=== PATIENT | female | born 1965 | race African-American/Black ===

== ENCOUNTER 2016-04-17 04:22 | Emergency (ER) | payer MEDICARE, OTHER ==
[2016-04-17] MEDS ORDERED: ALBUTEROL SO4 2.5/IPRATROPIUM 0.5 INH SOL 3 ML VIAL.NEB. NEB ONE ×3 (04:59→05:24)
[2016-04-17] MEDS ORDERED: KETOROLAC TROMETHAMINE 30 MG/1 ML VIAL IVPUSH ONE (04:59)
[2016-04-17] MEDS ORDERED: methylPREDNISolone NA SUCC 125 MG/2 ML VIAL IVPB ONE (05:01)
[2016-04-17] MEDS ORDERED: METOCLOPRAMIDE HCL INJECTION 10 MG/2 ML VIAL IVPB ONE (05:03)
[2016-04-17] MEDS ORDERED: SODIUM CHLORIDE 0.9% 1000 ML INFUS.BAG IV ONE (05:03)
--- NOTE | 2016-04-17 05:12 | PDOC ---
History of Present Illness - General Chief Complaint: Headache Stated Complaint: ASTHMA, HEADACHE History Source: Patient Exam Limitations: No Limitations - History of Present Illness Initial Comments: 04/17/16 05:04 Patient is a 50 year old female with h/o bipolar disorder, asthma no intubation , sinus surgery c/o asthma symptoms since yesterday after going to the [facility]. States she was treated at the [facility] and given prednsione of which she took 20 mg last night but still continues to have wheezing. States she has also had a headache since yesterday as well, describes a frontal, throbbing, 8/ 10. She has been taking advil which she took 6 hours ago but has not gotten any relief. Denies fever, chills, nausea, vomiting. PMD: Dr. Hinkle PMHX: as above PSoocHx: neg cig, neg etoh, neg drug FamHx: noncontributory GENERAL/CONSTITUTIONAL: [No fever or chills. No weakness. No weight change.] HEAD, EYES, EARS, NOSE AND THROAT: [No change in vision. No ear pain or discharge. No sore throat.] CARDIOVASCULAR: [No chest pain or shortness of breath.] RESPIRATORY: (+) cough, (+) wheezing, (-) hemoptysis.] GASTROINTESTINAL: [No nausea, vomiting, diarrhea or constipation. No rectal bleeding.] GENITOURINARY: [No dysuria, frequency, or change in urination.] MUSCULOSKELETAL: [No joint or muscle swelling or pain. No neck or back pain.] SKIN AND BREASTS: [No rash or easy bruising.] NEUROLOGIC: [No headache, vertigo, loss of consciousness, or loss of sensation.] PSYCHIATRIC: (+) depression or anxiety.] ENDOCRINE: [No increased thirst. No abnormal weight change.] HEMATOLOGIC/LYMPHATIC: [No anemia, easy bleeding, or history of blood clots.] ALLERGIC/IMMUNOLOGIC: [No hives or skin allergy. No latex allergy.] GENERAL: [The patient is awake, alert, and fully oriented, in no acute distress. ] HEAD: [Normal with no signs of trauma.] EYES: [Pupils equal, round and reactive to light, extraocular movements intact, sclera anicteric, conjunctiva clear.] ENT: [Ears normal, nares patent, oropharynx clear without exudates. Moist mucous membranes.] NECK: [Normal range of motion, supple without lymphadenopathy, JVD, or masses.] LUNGS: bilaterally wheezing, and no crackles.] HEART: [Regular rate and rhythm, normal S1 and S2 without murmur, rub.] ABDOMEN: [Soft, nontender, normoactive bowel sounds. No guarding, no rebound. No masses.] EXTREMITIES: [Normal range of motion, no edema. No clubbing or cyanosis. No cords, erythema, or tenderness.] NEUROLOGICAL: [Cranial nerves II through XII grossly intact. Normal speech, normal gait.] PSYCH: [Normal mood, normal affect.] SKIN: [Warm, Dry, normal turgor, no rashes or lesions noted.] Past History - Past Medical History Allergies/Adverse Reactions: Allergies Allergy/AdvReac Type Severity Reaction Status Date / Time surjit Allergy Mild Verified 04/17/16 04:47 Sulfa (Sulfonamide Allergy Rash Verified 04/17/16 04:47 Antibiotics) [Sulfa(Sulfonamide Antibiotics)] Home Medications: Ambulatory Orders Haloperidol Decanoate [Haldol Decanoate 50] 50 mg IM MONTHLY 12/14/11 Albuterol Sulfate Inhaler - [Ventolin HFA Inhaler -] 1 - 2 inh PO Q4H PRN #1 inhaler 02/01/16 Budesonide/Formeterol Fumarate [SYMBICORT 160/4.5mcg -] 1 inh PO BID #1 inhaler 02/01/16 Prednisone [Deltasone -] 10 mg PO ONCE 02/01/16 Prednisone [Deltasone -] 40 mg PO DAILY #10 tablet 02/01/16 Anemia: No Asthma: Yes Cancer: No Cardiac Disorders: No CVA: No COPD: No CHF: No Dementia: No Diabetes: No GI Disorders: No Disorders: No HTN: No Hypercholesterolemia: Yes Liver Disease: No Psychiatric Problems: Yes (bipolar) Seizures: No Thyroid Disease: No - Surgical History Abdominal Surgery: No Appendectomy: No Cardiac Surgery: No Cholecystectomy: No Lung Surgery: No Neurologic Surgery: No Orthopedic Surgery: No - Immunization History Immunization Up to Date: Yes - Psycho/Social/Smoking Cessation Hx Anxiety: Yes (BIPOLAR) Suicidal Ideation: No Smoking Status: No Smoking History: Never smoked Have you smoked in the past 12 months: No Number of Cigarettes Smoked Daily: 0 Cigars Per Day: 0 Information on smoking cessation initiated: No Hx Alcohol Use: No Drug/Substance Use Hx: No Substance Use Type: None Hx Substance Use Treatment: No *Physical Exam - Vital Signs Last Vital Signs Temp Pulse Resp BP Pulse Ox 97.5 F L 62 19 116/83 99 04/17/16 04:45 04/17/16 04:45 04/17/16 04:45 04/17/16 04:45 04/17/16 04:45 Medical Decision Making - Medical Decision Making 04/17/16 05:13 Patient is a 50 year old female with h/o bipolar disorder, asthma, sinus surgery c/o asthma symptoms since yesterday after going to the [employer]. will treat the asthma duo nebs, solumedrol KEARNEY treat with benadryl, reglan, toradol. reassess 04/17/16 06:38 Informed that patient pulled out her IV and left without notification *DC/Admit/Observation/Transfer Diagnosis at time of Disposition: Asthma with acute exacerbation Qualifiers: Asthma severity: mild intermittent Qualified Code(s): J45.21 - Mild intermittent asthma with (acute) exacerbation Headache Qualifiers: Headache type: tension-type Headache chronicity pattern: unspecified pattern Intractability: not intractable Qualified Code(s): G44.209 - Tension-type headache, unspecified, not intractable - Discharge Dispostion Disposition: ELOPED Condition at time of disposition: Stable - Referrals Referrals: Brittney Hinkle [Primary Care Provider] -
[2016-04-17 05:21] VITALS: BP 116/83; PULSE 62; TEMP 97.5; BMI 44.2
[2016-04-17] MEDS ORDERED: METOCLOPRAMIDE HCL INJECTION 10 MG/2 ML VIAL ONE (05:24)
[2016-04-17] MEDS ORDERED: methylPREDNISolone NA SUCC 125 MG/2 ML VIAL ONE (05:24)
[2016-04-17] MEDS ORDERED: KETOROLAC TROMETHAMINE 30 MG/1 ML VIAL ONE (05:24)
== END 2016-04-17 06:09 | disposition left against medical advice (07) ==
LOC: JER 04:22
PROC: 3E0F7GC Introduction of Other Therapeutic Substance into Respiratory Tract, Via Natural or Artificial Opening (ICD-10-PCS; principal; 2016-04-17)
PROC: 3E033GC Introduction of Other Therapeutic Substance into Peripheral Vein, Percutaneous Approach (ICD-10-PCS; 2016-04-17)
PROC: 3E0333Z Introduction of Anti-inflammatory into Peripheral Vein, Percutaneous Approach (ICD-10-PCS; 2016-04-17)
PROC: 3E0337Z Introduction of Electrolytic and Water Balance Substance into Peripheral Vein, Percutaneous Approach (ICD-10-PCS; 2016-04-17)
DX: J45.21 Mild intermittent asthma with (acute) exacerbation (principal); G44.209 Tension-type headache, unspecified, not intractable; E78.00 Pure hypercholesterolemia, unspecified; F31.9 Bipolar disorder, unspecified; F41.9 Anxiety disorder, unspecified
CPT/HCPCS: 94640; 96361; 96374; 96375; 99282-25

== ENCOUNTER 2016-04-27 01:19 | Emergency (ER) | payer MEDICARE ==
[2016-04-27] MEDS ORDERED: predniSONE 20 MG TABLET (UD) PO ONE (01:54)
[2016-04-27] MEDS ORDERED: IPRATROPIUM BR 0.02% 0.5 MG/2.5 ML VIAL.NEB. NEB ONE (01:54)
[2016-04-27] MEDS ORDERED: ALBUTEROL SO4 0.083% IH SOL 2.5 MG/3 ML VIAL.NEB. NEB ONE (01:54)
[2016-04-27] MEDS ORDERED: ACETAMINOPHEN 325 MG TABLET (FP) PO ONE (01:56)
--- NOTE | 2016-04-27 02:03 | PDOC ---
History of Present Illness - General Chief Complaint: Respiratory Stated Complaint: DIFFICULTY BREATHING,HEADACHE History Source: Patient, Old Records Exam Limitations: No Limitations - History of Present Illness Initial Comments: 04/27/16 01:57 50 year old female with past medical history of asthma, well known to me, presents with mild asthma exacerbation. Since yesterday, has had a mild cough, but no SOB or chest pain. Has had used her inhalers with some relief. She had taken 20 mg prednisone today. Came into the ED for further evaluation. Past History - Past Medical History Allergies/Adverse Reactions: Allergies Allergy/AdvReac Type Severity Reaction Status Date / Time surjit Allergy Mild Verified 04/27/16 02:01 Sulfa (Sulfonamide Allergy Rash Verified 04/27/16 02:01 Antibiotics) [Sulfa(Sulfonamide Antibiotics)] Home Medications: Ambulatory Orders Haloperidol Decanoate [Haldol Decanoate 50] 50 mg IM MONTHLY 12/14/11 Budesonide/Formeterol Fumarate [SYMBICORT 160/4.5mcg -] 1 inh PO BID #1 inhaler 02/01/16 Prednisone [Deltasone -] 10 mg PO ONCE 02/01/16 Prednisone [Deltasone -] 40 mg PO DAILY #10 tablet 02/01/16 Acetaminophen [Tylenol] 650 mg PO Q4H PRN #20 tablet 04/27/16 Albuterol Sulfate Inhaler - [Ventolin HFA Inhaler -] 1 - 2 inh PO Q4H PRN #1 inhaler 04/27/16 Prednisone [Deltasone -] 60 mg PO DAILY #12 tablet 04/27/16 Anemia: No Asthma: Yes Cancer: No Cardiac Disorders: No CVA: No COPD: No CHF: No Dementia: No Diabetes: No GI Disorders: No Disorders: No HTN: No Hypercholesterolemia: Yes Liver Disease: No Psychiatric Problems: Yes (bipolar) Seizures: No Thyroid Disease: No - Surgical History Abdominal Surgery: No Appendectomy: No Cardiac Surgery: No Cholecystectomy: No Lung Surgery: No Neurologic Surgery: No Orthopedic Surgery: No - Immunization History Immunization Up to Date: Yes - Psycho/Social/Smoking Cessation Hx Anxiety: Yes (BIPOLAR) Suicidal Ideation: No Smoking Status: No Smoking History: Never smoked Have you smoked in the past 12 months: No Number of Cigarettes Smoked Daily: 0 Cigars Per Day: 0 Hx Alcohol Use: No Drug/Substance Use Hx: No Substance Use Type: None Hx Substance Use Treatment: No Review of Systems - Review of Systems Able to Perform ROS?: Yes Comments:: 04/27/16 02:01 GENERAL/CONSTITUTIONAL: No fever, weakness. HEAD, EYES, EARS, NOSE AND THROAT: No change in vision. No ear pain or discharge. No sore throat. CARDIOVASCULAR: No chest pain or shortness of breath. RESPIRATORY: + wheezing GASTROINTESTINAL: No abdominal pain, nausea, vomiting, diarrhea, or decreased PO intolerance. GENITOURINARY: No dysuria, frequency, or change in urination. MUSCULOSKELETAL: No joint or muscle swelling or pain. No neck or back pain. SKIN: No rash NEUROLOGIC: No headache, vertigo, loss of consciousness, or change in strength/ sensation. ENDOCRINE: No increased thirst. No abnormal weight change. HEMATOLOGIC/LYMPHATIC: No anemia, easy bleeding, or history of blood clots. ALLERGIC/IMMUNOLOGIC: No hives or skin allergy. *Physical Exam - Physical Exam Comments: 04/27/16 02:02 GENERAL: Awake, alert, and fully oriented, in no acute distress. HEAD: No signs of trauma EYES: PERRLA, EOMI, sclera anicteric, conjunctiva clear ENT: Auricles normal inspection, hearing grossly normal, nares patent, oropharynx clear without exudates. NECK: Normal ROM, supple, no lymphadenopathy, JVD, or masses LUNGS:mild expiratory wheezing bilaterally HEART: Regular rate and rhythm, normal S1 and S2, no murmurs, rubs or gallops ABDOMEN: Soft, nontender, normoactive bowel sounds. No guarding, no rebound. No masses EXTREMITIES: Normal range of motion, no edema. No clubbing or cyanosis. No cords, erythema, or tenderness NEUROLOGICAL: Cranial nerves II through XII grossly intact. Normal speech, normal gait SKIN: Warm, Dry, normal turgor, no rashes or lesions noted. Medical Decision Making - Medical Decision Making 04/27/16 02:03 The patient is speaking in full sentences and ambulatory. She is here with mild wheezing and in mild asthma exacerbation. Will treat with nebs, steroids. Patient is also asking for tylenol for her mild tension like headache. Will give her a treatment and have her follow up with PMD. I discussed the physical exam findings, ancillary test results and final diagnoses with the patient. I answered all of the patient's questions. The patient was satisfied with the care received and felt comfortable with the discharge plan and treatment plan. The patient will call their primary care physician within 24 hours to arrange follow-up and will return to the Emergency Department with any new, persistant or worsening symptoms. *DC/Admit/Observation/Transfer Diagnosis at time of Disposition: Acute asthma exacerbation Qualifiers: Asthma severity: unspecified severity Qualified Code(s): J45.901 - Unspecified asthma with (acute) exacerbation - Discharge Dispostion Disposition: HOME Condition at time of disposition: Improved Admit: No - Prescriptions Prescriptions: Prednisone [Deltasone -] 60 mg PO DAILY #12 tablet Acetaminophen [Tylenol] 650 mg PO Q4H PRN #20 tablet PRN Reason: Headache Albuterol Sulfate Inhaler - [Ventolin HFA Inhaler -] 1 - 2 inh PO Q4H PRN #1 inhaler PRN Reason: Wheezing - Referrals Referrals: Brittney Hinkle [Primary Care Provider] - Reinier Zhang MD [Staff Physician] - - Patient Instructions Printed Discharge Instructions: DI for Asthma -- Adult Additional Instructions: Take 2 puffs of albuterol every 4 hours as needed for wheezing. Take the prednisone for the next 4 days. Follow up with your doctor.
[2016-04-27 02:13] VITALS: BP 140/66; PULSE 83; TEMP 97.7; BMI 45.7
[2016-04-27] MEDS ORDERED: ALBUTEROL SO4 2.5/IPRATROPIUM 0.5 INH SOL 3 ML VIAL.NEB. NEB ONE (02:20)
[2016-04-27] MEDS ORDERED: predniSONE 20 MG TABLET (UD) ONE (02:20)
[2016-04-27] MEDS ORDERED: ACETAMINOPHEN 325 MG TABLET (FP) ONE (02:20)
== END 2016-04-27 02:58 | disposition home or self-care (01) ==
LOC: JER 01:19
DX: J45.901 Unspecified asthma with (acute) exacerbation (principal); E78.00 Pure hypercholesterolemia, unspecified; F31.9 Bipolar disorder, unspecified
CPT/HCPCS: 99281-25

== ENCOUNTER 2016-05-04 22:30 | Emergency (ER) | payer MEDICARE ==
[2016-05-04 22:38] VITALS: BP 107/62; PULSE 84; TEMP 97.9; BMI 45.7
[2016-05-04] MEDS ORDERED: RANITIDINE HCL 150 MG TABLET (FP) PO ONE (22:57)
[2016-05-04] MEDS ORDERED: SUCRALFATE 1 GM TABLET (FP) PO ONE (22:57)
[2016-05-04] MEDS ORDERED: LOPERAMIDE HCL 2 MG CAPSULE PO ONE (22:57)
[2016-05-04] MEDS ORDERED: ACETAMINOPHEN 325 MG TABLET (FP) PO ONE (22:57)
[2016-05-04] MEDS ORDERED: MAG HYDROX/AL HYDROX/SIMETH 30 ML UNIT-DOSE CUP PO ONE (22:57)
--- NOTE | 2016-05-04 23:45 | PDOC ---
History of Present Illness - General History Source: Patient Exam Limitations: No Limitations <Aly Yeh - Last Filed: 05/04/16 23:45> - General History Source: Patient, Old Records Exam Limitations: No Limitations - History of Present Illness Initial Comments: 05/04/16 23:55 The patient is a 50 year old female, with a significant past medical history of asthma and bipolar disorder, who presents to the emergency department with epigastric discomfort and diarrhea after eating a questionable hot dog [place] the movie theatre. The patient reports 3 episodes of nonbloody diarrhea. The patient denies fever, chills, nausea or vomiting. Allergies: Sulfa, Stephen. Past Surgical History: None reported. Social History: Non smoker. Denies alcohol or drug use. PCP: Dr. Hinkle <Janet Carter - Last Filed: 05/04/16 23:55> - General Chief Complaint: Pain Stated Complaint: POSSIBLE FOOD POISON Time Seen by Provider: 05/04/16 22:56 Past History - Past Medical History Anemia: No Asthma: Yes Cancer: No Cardiac Disorders: No CVA: No COPD: No CHF: No Dementia: No Diabetes: No GI Disorders: No Disorders: No HTN: No Hypercholesterolemia: Yes Liver Disease: No Psychiatric Problems: Yes (bipolar) Seizures: No Thyroid Disease: No - Surgical History Abdominal Surgery: No Appendectomy: No Cardiac Surgery: No Cholecystectomy: No Lung Surgery: No Neurologic Surgery: No Orthopedic Surgery: No - Immunization History Immunization Up to Date: Yes - Psycho/Social/Smoking Cessation Hx Anxiety: Yes (BIPOLAR) Suicidal Ideation: No Smoking Status: No Smoking History: Never smoked Have you smoked in the past 12 months: No Number of Cigarettes Smoked Daily: 0 Cigars Per Day: 0 Information on smoking cessation initiated: No Hx Alcohol Use: No Drug/Substance Use Hx: No Substance Use Type: None Hx Substance Use Treatment: No <Aly Yeh - Last Filed: 05/04/16 23:45> <Janet Carter - Last Filed: 05/04/16 23:55> - Past Medical History Allergies/Adverse Reactions: Allergies Allergy/AdvReac Type Severity Reaction Status Date / Time stephen Allergy Mild Verified 05/04/16 22:35 Sulfa (Sulfonamide Allergy Rash Verified 05/04/16 22:35 Antibiotics) [Sulfa(Sulfonamide Antibiotics)] Home Medications: Ambulatory Orders Haloperidol Decanoate [Haldol Decanoate 50] 50 mg IM MONTHLY 12/14/11 Budesonide/Formeterol Fumarate [SYMBICORT 160/4.5mcg -] 1 inh PO BID #1 inhaler 02/01/16 Prednisone [Deltasone -] 10 mg PO ONCE 02/01/16 Prednisone [Deltasone -] 40 mg PO DAILY #10 tablet 02/01/16 Acetaminophen [Tylenol] 650 mg PO Q4H PRN #20 tablet 04/27/16 Albuterol Sulfate Inhaler - [Ventolin HFA Inhaler -] 1 - 2 inh PO Q4H PRN #1 inhaler 04/27/16 Prednisone [Deltasone -] 60 mg PO DAILY #12 tablet 04/27/16 Review of Systems - Review of Systems Able to Perform ROS?: Yes Comments:: 05/04/16 23:55 GENERAL/CONSTITUTIONAL: No fever or chills. No weakness. HEAD, EYES, EARS, NOSE AND THROAT: No change in vision. No ear pain or discharge. No sore throat. CARDIOVASCULAR: No chest pain or shortness of breath. RESPIRATORY: No cough, wheezing, or hemoptysis. GASTROINTESTINAL: +Epigastric discomfort, diarrhea. No nausea, vomiting or constipation. GENITOURINARY: No dysuria, frequency, or change in urination. MUSCULOSKELETAL: No joint or muscle swelling or pain. No neck or back pain. SKIN: No rash. NEUROLOGIC: No headache, vertigo, loss of consciousness, or change in strength/ sensation. ENDOCRINE: No increased thirst. No abnormal weight change. HEMATOLOGIC/LYMPHATIC: No anemia, easy bleeding, or history of blood clots. ALLERGIC/IMMUNOLOGIC: No hives or skin allergy. <Janet Carter - Last Filed: 05/04/16 23:55> *Physical Exam - Vital Signs Last Vital Signs Temp Pulse Resp BP Pulse Ox 97.9 F 84 14 107/62 96 05/04/16 22:35 05/04/16 22:35 05/04/16 22:35 05/04/16 22:35 05/04/16 22:35 <Aly Yeh - Last Filed: 05/04/16 23:45> - Vital Signs Last Vital Signs Temp Pulse Resp BP Pulse Ox 97.9 F 84 14 107/62 96 05/04/16 22:35 05/04/16 22:35 05/04/16 22:35 05/04/16 22:35 05/04/16 22:35 - Physical Exam Comments: 05/04/16 23:49 GENERAL: Obese. Awake, alert, and fully oriented, in no acute distress. HEAD: No signs of trauma. EYES: PERRLA, EOMI, sclera anicteric, conjunctiva clear. ENT: Auricles normal inspection, hearing grossly normal, nares patent, oropharynx clear without exudates. Moist mucosa. NECK: Normal ROM, supple, no lymphadenopathy, JVD, or masses. LUNGS: Breath sounds equal, clear to auscultation bilaterally. No wheezes, and no crackles. HEART: Regular rate and rhythm, normal S1 and S2, no murmurs, rubs or gallops. ABDOMEN: Epigastric tenderness on palpation. Soft, normoactive bowel sounds. No guarding, no rebound. No masses. EXTREMITIES: Normal range of motion, no edema. No clubbing or cyanosis. No cords , erythema, or tenderness. NEUROLOGICAL: Cranial nerves II through XII intact. Normal speech, normal gait. SKIN: Warm, dry, normal turgor, no rashes or lesions noted. <Janet Carter - Last Filed: 05/04/16 23:55> Medical Decision Making - Medical Decision Making 05/04/16 23:36 A portion of this note was documented by scribe services under my direction. I have reviewed the details of the note, within reason, and agree with the documentation with the following case summary and management plan written by me. Patient treated in the ED. Nursing notes are reviewed and incorporated into the medical decision-making. Vital signs reviewed. Peripheral IV access obtained by the nurse, laboratory studies are drawn and sent, reviewed and interpreted by myself. Vital Signs Temp Pulse Resp BP Pulse Ox 97.9 F 84 14 107/62 96 05/04/16 22:35 05/04/16 22:35 05/04/16 22:35 05/04/16 22:35 05/04/16 22:35 50-year-old female patient with history of bipolar disorder, asthma presents to the ED for 3 episodes of loose stooling after eating a hotdog at movie theaters. Patient reports some mild epigastric discomfort but denies fevers or chills. Denies nausea or vomiting. Patient came to the ER for further evaluation. The patient overall was nontoxic and well-appearing. I suspect that she may have had a mild food poisoning secondary to the hotdog. I had ordered some by mouth medications. However, when I had him to reassess the patient, the patient was nowhere to be found. There was no IV placed. The nurse has been looking for the patient without avail. The patient had likely eloped after medical evaluation. <Aly Yeh - Last Filed: 05/04/16 23:45> *DC/Admit/Observation/Transfer <Aly Yeh - Last Filed: 05/04/16 23:45> - Attestations Scribe Attestion: 05/04/16 23:48 Documentation prepared by Janet Carter, acting as medical records clerk for Aly Yeh MD. <Janet Carter - Last Filed: 05/04/16 23:55> Diagnosis at time of Disposition: Diarrhea Qualifiers: Diarrhea type: unspecified type Qualified Code(s): R19.7 - Diarrhea, unspecified - Discharge Dispostion Disposition: ELOPED Condition at time of disposition: Stable - Referrals Referrals: Brittney Hinkle [Primary Care Provider] -
== END 2016-05-04 23:45 | disposition left against medical advice (07) ==
LOC: JER 22:30
DX: R19.7 Diarrhea, unspecified (principal); F31.9 Bipolar disorder, unspecified; J45.909 Unspecified asthma, uncomplicated
CPT/HCPCS: 99281-25

== ENCOUNTER 2016-07-26 06:13 | Emergency (ER) | payer MEDICARE ==
[2016-07-26 06:33] VITALS: BP 137/86; PULSE 80; TEMP 98.5; BMI 43.9
[2016-07-26] MEDS ORDERED: ALBUTEROL SO4 0.083% IH SOL 2.5 MG/3 ML VIAL.NEB. NEB ONE (06:38)
[2016-07-26] MEDS ORDERED: IBUPROFEN 400 MG TABLET (FP) PO ONE (06:38)
[2016-07-26] MEDS ORDERED: IBUPROFEN 600 MG TABLET (FP) PO ONE (06:40)
== END 2016-07-26 06:59 | disposition left against medical advice (07) ==
LOC: JER 06:13
DX: Z53.21 Procedure and treatment not carried out due to patient leaving prior to being seen by health care provider (principal)
CPT/HCPCS: 99281-25

== ENCOUNTER 2016-07-28 21:48 | Emergency (ER) | payer MEDICARE ==
[2016-07-28 21:58] VITALS: BP 123/68; PULSE 89; TEMP 98.7; BMI 43.9
== END 2016-07-28 23:42 | disposition left against medical advice (07) ==
LOC: SUPCPDRO 21:48 → JER 21:48
DX: Z53.21 Procedure and treatment not carried out due to patient leaving prior to being seen by health care provider (principal)
CPT/HCPCS: 99281-25

== ENCOUNTER 2016-10-17 01:13 | Emergency (ER) | payer MEDICARE ==
[2016-10-17 01:35] VITALS: BP 127/83; PULSE 63; TEMP 97.6; BMI 45.7
--- NOTE | 2016-10-17 02:03 | PDOC ---
History of Present Illness - General Chief Complaint: Shortness of Breath Stated Complaint: DIFFICULTY BREATHING Time Seen by Provider: 10/17/16 02:00 - History of Present Illness Initial Comments: 10/17/16 02:13 50 F with h/o asthma (no prior intubations), and bipolar disorder presents to ER with 4 days of cough, congestion, and SOB. Pt reports that she was seen in another hospital 3 days ago and started on prednisone and amoxicillin for an upper respiratory infection. She denies any fevers. States that she has been feeling overall better but tonight began to have what she believes is an asthma attack, stating that she started to cough and get short of breath. Pt also endorses mild headache which she states she gets every time she has an asthma exacerbation. Denies that this is any different from her usual headache. No neck pain. No N/V. Prior to MD evaluation, pt had been given saline nebs while waiting. At time of interview, pt states that her symptoms have now resolved. She denies any SOB, denies chest pain. Pt states that she would like to leave at this time and plans to see her PMD tomorrow. Past History - Past Medical History Allergies/Adverse Reactions: Allergies Allergy/AdvReac Type Severity Reaction Status Date / Time surjit Allergy Mild Verified 10/17/16 01:30 Sulfa (Sulfonamide Allergy Rash Verified 10/17/16 01:30 Antibiotics) [Sulfa(Sulfonamide Antibiotics)] Home Medications: Ambulatory Orders Haloperidol Decanoate [Haldol Decanoate 50] 50 mg IM MONTHLY 12/14/11 Budesonide/Formeterol Fumarate [SYMBICORT 160/4.5mcg -] 1 inh PO BID #1 inhaler 02/01/16 Prednisone [Deltasone -] 10 mg PO ONCE 02/01/16 Prednisone [Deltasone -] 40 mg PO DAILY #10 tablet 02/01/16 Acetaminophen [Tylenol] 650 mg PO Q4H PRN #20 tablet 04/27/16 Albuterol Sulfate Inhaler - [Ventolin HFA Inhaler -] 1 - 2 inh PO Q4H PRN #1 inhaler 04/27/16 Prednisone [Deltasone -] 60 mg PO DAILY #12 tablet 04/27/16 Albuterol Sulfate Inhaler - [Ventolin HFA Inhaler -] 2 puff IH Q4H PRN #1 inhaler 10/17/16 Anemia: No Asthma: Yes Cancer: No Cardiac Disorders: No CVA: No COPD: No CHF: No Dementia: No Diabetes: No GI Disorders: No Disorders: No HTN: No Hypercholesterolemia: Yes Liver Disease: No Psychiatric Problems: Yes (bipolar) Seizures: No Thyroid Disease: No - Surgical History Abdominal Surgery: No Appendectomy: No Cardiac Surgery: No Cholecystectomy: No Lung Surgery: No Neurologic Surgery: No Orthopedic Surgery: No - Immunization History Immunization Up to Date: Yes - Psycho/Social/Smoking Cessation Hx Anxiety: No Suicidal Ideation: No Smoking Status: No Smoking History: Never smoked Have you smoked in the past 12 months: No Number of Cigarettes Smoked Daily: 0 Cigars Per Day: 0 Information on smoking cessation initiated: No Hx Alcohol Use: No Drug/Substance Use Hx: No Substance Use Type: None Hx Substance Use Treatment: No Respiratory Specific PMHX - Complaint Specific PMHX Bronchitis: Yes Review of Systems - Review of Systems Comments:: 10/17/16 02:17 "GENERAL/CONSTITUTIONAL: No fever or chills. No weakness. HEAD, EYES, EARS, NOSE AND THROAT: No change in vision. No ear pain or discharge. No sore throat. CARDIOVASCULAR: No chest pain or shortness of breath. RESPIRATORY: (+) cough, wheeze, shortness of breath. No hemoptysis. GASTROINTESTINAL: No nausea, vomiting, diarrhea or constipation. GENITOURINARY: dysuria, frequency, or change in urination. MUSCULOSKELETAL: No joint or muscle swelling or pain. SKIN: No rash NEUROLOGIC: (+) headache. No loss of consciousness, or change in strength/ sensation. ENDOCRINE: No increased thirst. No abnormal weight change. HEMATOLOGIC/LYMPHATIC: No anemia, easy bleeding, or history of blood clots. ALLERGIC/IMMUNOLOGIC: No hives or skin allergy. " *Physical Exam - Vital Signs Last Vital Signs Temp Pulse Resp BP Pulse Ox 97.6 F 63 18 127/83 97 10/17/16 01:30 10/17/16 01:30 10/17/16 01:30 10/17/16 01:30 10/17/16 01:30 - Physical Exam Comments: 10/17/16 02:22 "GENERAL: Awake, alert, and fully oriented, in no acute distress HEAD: No signs of trauma EYES: PERRLA, EOMI, sclera anicteric, conjunctiva clear ENT: Auricles normal inspection, hearing grossly normal, nares patent, oropharynx clear without exudates. Moist mucosa NECK: supple, no lymphadenopathy, JVD, or masses LUNGS: Breath sounds equal, clear to auscultation bilaterally. No wheezes, and no crackles HEART: Regular rate and rhythm, normal S1 and S2, no murmurs, rubs or gallops ABDOMEN: Soft, nontender, normoactive bowel sounds. No guarding, no rebound. No masses EXTREMITIES: Normal range of motion, no edema. No clubbing or cyanosis. No cords, erythema, or tenderness NEUROLOGICAL: Cranial nerves II through XII grossly intact. Normal speech, normal gait SKIN: Warm, Dry, normal turgor, no rashes or lesions noted. " Medical Decision Making - Medical Decision Making 10/17/16 02:23 50 F with asthma presents to ER with cough and wheezing, now resolved. Possible asthma exacerbation given pt's history. However, pt's symptoms resolved with only saline nebs. Lungs completely clear with no wheezing. Symptoms may be 2/2 pt's URI like illness. - Supportive care - DC home with PMD f/u *DC/Admit/Observation/Transfer Diagnosis at time of Disposition: Viral syndrome - Discharge Dispostion Disposition: HOME Condition at time of disposition: Stable Admit: No - Patient Instructions Printed Discharge Instructions: DI for Asthma -- Adult Additional Instructions: Please follow up with your primary care doctor as scheduled tomorrow. Use your albuterol pump every 4 hours as needed for wheezing or cough. Continue taking your prednisone and antibiotics as prescribed. If you experience severe shortness of breath, chest pain, high fevers, or any other concerning symptoms, return to the ER immediately. - Attestations Physician Attestion: 10/17/16 02:27 I, Dr. Bboby Rodgers MD, attest that this document has been prepared under my direction and personally reviewed by me in its entirety. I further attest, that it accurately reflects all work, treatment, procedures and medical decision -making performed by me.
[2016-10-17] MEDS ORDERED: ALBUTEROL SO4 6.7 GM HFA INHALER IH ONE (02:47)
== END 2016-10-17 02:56 | disposition home or self-care (01) ==
LOC: JER 01:13
PROC: 3E0F7GC Introduction of Other Therapeutic Substance into Respiratory Tract, Via Natural or Artificial Opening (ICD-10-PCS; principal; 2016-10-17)
DX: B34.9 Viral infection, unspecified (principal); J45.909 Unspecified asthma, uncomplicated; F31.9 Bipolar disorder, unspecified; E78.00 Pure hypercholesterolemia, unspecified; Z88.2 Allergy status to sulfonamides
CPT/HCPCS: 94640; 99283-25

== ENCOUNTER 2016-12-19 23:43 | Emergency (ER) | payer MEDICARE ==
[2016-12-20] MEDS ORDERED: ALBUTEROL SO4 2.5/IPRATROPIUM 0.5 INH SOL 3 ML VIAL.NEB. NEB ONE (00:42)
[2016-12-20 00:51] VITALS: BP 129/96; PULSE 81; TEMP 98.9; BMI 45.7
[2016-12-20] MEDS ORDERED: ACETAMINOPHEN 325 MG TABLET (FP) ONE (00:57)
[2016-12-20] MEDS ORDERED: ACETAMINOPHEN 325 MG TABLET (FP) PO ONE (00:58)
--- NOTE | 2016-12-20 01:16 | PDOC ---
History of Present Illness - General Chief Complaint: Shortness of Breath Stated Complaint: ASTHMA Time Seen by Provider: 12/20/16 00:44 History Source: Patient Exam Limitations: No Limitations - History of Present Illness Initial Comments: 12/20/16 01:11 51yo Female patient w/ PmHx: Asthma, Bipolar presents to ED c/o shortness of breath. Patient states she was seen at [facility] yesterday for Asthma flare up and given Prednisone 60mg, and nebulizer x 3 doses and discharge home. Patient f/u with Dr. Hinkle and was prescribed [id number]. She denies fever, CP, Abd pain, n/v/d, back pain or any other complaints at this time. LNMP : 11/02/2016. PCP- Dr. Hinkle. Timing/Duration: reports: just prior to arrival. denies: other, constant, changing over time, getting worse, gone now, intermittent, week, yesterday, this afternoon, this evening, this morning Severity: reports: mild. denies: moderate, severe Episode Description: See HPI Possible Cause: Yes: occasional episodes. No: no prior episodes, other, allergen exposure, chronic episodes, frequent episodes, illness exposure, irritant gases exposure, smoke exposure, unknown cause Modifying Factors: improves with: albuterol inhaler, albuterol nebulizer, antibiotics. worse with: activity, coughing, lying down, oxygen, rest, other Associated Symptoms: reports: cough, shortness of breath, wheezing. denies: denies symptoms, chest pain/soreness, dizziness, earache, facial pain, fever/ chills, headache, lightheadedness, muscle aches, nasal congestion, nasal drainage, sinus infection, sore throat, other Past History - Travel Traveled outside of the country in the last 30 days: No Close contact w/someone who was outside of country & ill: No - Past Medical History Allergies/Adverse Reactions: Allergies Allergy/AdvReac Type Severity Reaction Status Date / Time surjit Allergy Mild Verified 10/17/16 01:30 Sulfa (Sulfonamide Allergy Rash Verified 10/17/16 01:30 Antibiotics) [Sulfa(Sulfonamide Antibiotics)] Home Medications: Ambulatory Orders Haloperidol Decanoate [Haldol Decanoate 50] 50 mg IM MONTHLY 12/14/11 Budesonide/Formeterol Fumarate [SYMBICORT 160/4.5mcg -] 1 inh PO BID #1 inhaler 02/01/16 Prednisone [Deltasone -] 10 mg PO ONCE 02/01/16 Prednisone [Deltasone -] 40 mg PO DAILY #10 tablet 02/01/16 Acetaminophen [Tylenol] 650 mg PO Q4H PRN #20 tablet 04/27/16 Albuterol Sulfate Inhaler - [Ventolin HFA Inhaler -] 1 - 2 inh PO Q4H PRN #1 inhaler 04/27/16 Prednisone [Deltasone -] 60 mg PO DAILY #12 tablet 04/27/16 Albuterol Sulfate Inhaler - [Ventolin HFA Inhaler -] 2 puff IH Q4H PRN #1 inhaler 10/17/16 Anemia: No Asthma: Yes Cancer: No Cardiac Disorders: No CVA: No COPD: No CHF: No Dementia: No Diabetes: No GI Disorders: No Disorders: No HTN: No Hypercholesterolemia: Yes Liver Disease: No Psychiatric Problems: Yes (bipolar) Seizures: No Thyroid Disease: No - Surgical History Abdominal Surgery: No Appendectomy: No Cardiac Surgery: No Cholecystectomy: No Lung Surgery: No Neurologic Surgery: No Orthopedic Surgery: No - Immunization History Immunization Up to Date: Yes - Suicide/Smoking/Psychosocial Hx Smoking Status: No Smoking History: Never smoked Have you smoked in the past 12 months: No Number of Cigarettes Smoked Daily: 0 Cigars Per Day: 0 Information on smoking cessation initiated: No Hx Alcohol Use: No Drug/Substance Use Hx: No Substance Use Type: None Hx Substance Use Treatment: No Respiratory Specific PMHX - Complaint Specific PMHX Angina: No Bronchitis: Yes Pneumonia: No Pulmonary Embolus: No TB (Tuberculosis): No Review of Systems - Review of Systems Able to Perform ROS?: Yes Is the patient limited Mohawk proficient: No Constitutional: No: Chills, Fever Respiratory: Yes: Cough, Shortness of Breath, Wheezing. No: Stridor, Productive cough Cardiac (ROS): No: Chest Pain, Chest Tightness All Other Systems: Reviewed and Negative *Physical Exam - Vital Signs Last Vital Signs Temp Pulse Resp BP Pulse Ox 98.9 F 81 18 129/96 98 12/20/16 00:49 12/20/16 00:49 12/20/16 00:49 12/20/16 00:49 12/20/16 00:49 - Physical Exam General Appearance: Yes: Nourished, Appropriately Dressed. No: Apparent Distress, Mild Distress, Moderate Distress, Severe Distress Neck: positive: Trachea midline, Normal Thyroid, Supple. negative: Rigid, Stridor, Lymphadenopathy (R), Lymphadenopathy (L) Respiratory/Chest: positive: Wheezing (Mild). negative: Chest Tender, Lungs Clear, Normal Breath Sounds, Respiratory Distress, Accessory Muscle Use, Labored Respiration, Rapid RR, Rhonchi, Stridor Cardiovascular: positive: Regular Rhythm, Regular Rate Musculoskeletal: positive: Normal Inspection. negative: CVA Tenderness, Decreased Range of Motion, Vertebral Tenderness Extremity: positive: Normal Capillary Refill, Normal Inspection, Normal Range of Motion. 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 *DC/Admit/Observation/Transfer Diagnosis at time of Disposition: Asthma - Discharge Dispostion Disposition: LEFT BEFORE [facility] Condition at time of disposition: Stable Admit: No
--- NOTE | 2016-12-20 01:24 | PDOC ---
*Physical Exam - Vital Signs Last Vital Signs Temp Pulse Resp BP Pulse Ox 98.9 F 81 18 129/96 98 12/20/16 00:49 12/20/16 00:49 12/20/16 00:49 12/20/16 00:49 12/20/16 00:49 ED Treatment Course - Medications Given in the ED: ED Medications Discontinued Medications Generic Name Dose Route Start Last Admin Trade Name Freq PRN Reason Stop Dose Admin Acetaminophen 650 mg 12/20/16 00:58 12/20/16 00:59 Tylenol - PO 12/20/16 00:59 650 mg ONCE ONE Administration Medical Decision Making - Medical Decision Making 12/20/16 01:24 agree with care from DONOVAN Scott *DC/Admit/Observation/Transfer Diagnosis at time of Disposition: Asthma - Discharge Dispostion Disposition: LEFT BEFORE [facility] Condition at time of disposition: Stable - Referrals Referrals: Brittney Hinkle [Primary Care Provider] - - Patient Instructions - Post Discharge Activity
== END 2016-12-20 01:20 | disposition left against medical advice (07) ==
LOC: JER 23:43
DX: Z53.21 Procedure and treatment not carried out due to patient leaving prior to being seen by health care provider (principal); J45.909 Unspecified asthma, uncomplicated; F31.9 Bipolar disorder, unspecified
CPT/HCPCS: 99281-25

== ENCOUNTER 2016-12-24 22:27 | Emergency (ER) | payer MEDICARE ==
[2016-12-24 22:34] VITALS: BP 145/72; PULSE 77; TEMP 98; BMI 45.7
--- NOTE | 2016-12-24 23:33 | PDOC ---
History of Present Illness - General History Source: Patient Exam Limitations: No Limitations - History of Present Illness Initial Comments: 12/24/16 23:41 The patient is a 51 year old female with history of asthma, on 10mg of Prednisone daily, who presents to the ED complaining of 1 day of progressively worsening shortness of breath consistent with previous asthma exacerbations. She states she has been sick with cold-like symptoms for which she completed an antibiotic course. No fever or chills. No nausea, vomiting, or diarrhea. No chest pain, palpitations, or peripheral edema. <Smitha Wolfe - Last Filed: 12/24/16 23:49> <Babs Wlesh - Last Filed: 12/25/16 04:04> - General Chief Complaint: Asthma Stated Complaint: ASTHMA Time Seen by Provider: 12/24/16 23:33 Past History <Smitha Wolfe - Last Filed: 12/24/16 23:49> - Past Medical History Anemia: No Asthma: Yes Cancer: No Cardiac Disorders: No CVA: No COPD: No CHF: No Dementia: No Diabetes: No GI Disorders: No Disorders: No HTN: No Hypercholesterolemia: Yes Liver Disease: No Psychiatric Problems: Yes (bipolar) Seizures: No Thyroid Disease: No - Surgical History Abdominal Surgery: No Appendectomy: No Cardiac Surgery: No Cholecystectomy: No Lung Surgery: No Neurologic Surgery: No Orthopedic Surgery: No - Immunization History Immunization Up to Date: Yes - Suicide/Smoking/Psychosocial Hx Smoking Status: No Smoking History: Never smoked Have you smoked in the past 12 months: No Number of Cigarettes Smoked Daily: 0 Cigars Per Day: 0 Information on smoking cessation initiated: No Hx Alcohol Use: No Drug/Substance Use Hx: No Substance Use Type: None Hx Substance Use Treatment: No <Babs Welsh - Last Filed: 12/25/16 04:04> - Past Medical History Allergies/Adverse Reactions: Allergies Allergy/AdvReac Type Severity Reaction Status Date / Time surjit Allergy Mild Verified 12/24/16 22:33 Sulfa (Sulfonamide Allergy Rash Verified 12/24/16 22:33 Antibiotics) [Sulfa(Sulfonamide Antibiotics)] Home Medications: Ambulatory Orders Haloperidol Decanoate [Haldol Decanoate 50] 50 mg IM MONTHLY 12/14/11 Budesonide/Formeterol Fumarate [SYMBICORT 160/4.5mcg -] 1 inh PO BID #1 inhaler 02/01/16 Prednisone [Deltasone -] 10 mg PO ONCE 02/01/16 Albuterol Sulfate Inhaler - [Ventolin HFA Inhaler -] 2 puff IH Q4H PRN #1 inhaler 10/17/16 Review of Systems - Review of Systems Able to Perform ROS?: Yes Comments:: 12/24/16 23:45 GENERAL/CONSTITUTIONAL: No fever or chills. No weakness. HEAD, EYES, EARS, NOSE AND THROAT: No change in vision. No ear pain or discharge. No sore throat. CARDIOVASCULAR: No chest pain or peripheral edema. RESPIRATORY: +Dyspnea. No cough or hemoptysis. GASTROINTESTINAL: No nausea, vomiting, diarrhea or constipation. GENITOURINARY: No dysuria, frequency, or change in urination. MUSCULOSKELETAL: No joint or muscle swelling or pain. No neck or back pain. SKIN: No rash NEUROLOGIC: No headache, vertigo, loss of consciousness, or change in strength/ sensation. ENDOCRINE: No increased thirst. No abnormal weight change. HEMATOLOGIC/LYMPHATIC: No anemia, easy bleeding, or history of blood clots. ALLERGIC/IMMUNOLOGIC: No hives or skin allergy. <Smitha Wolfe - Last Filed: 12/24/16 23:49> *Physical Exam - Vital Signs Last Vital Signs Temp Pulse Resp BP Pulse Ox 98.0 F 77 18 145/72 98 12/24/16 22:28 12/24/16 22:28 12/24/16 22:28 12/24/16 22:28 12/24/16 22:28 - Physical Exam Comments: 12/24/16 23:49 GENERAL: Awake, alert, and fully oriented, in no acute distress HEAD: No signs of trauma EYES: PERRLA, EOMI, sclera anicteric, conjunctiva clear ENT: Auricles normal inspection, hearing grossly normal, nares patent, oropharynx clear without exudates. Moist mucosa NECK: Normal ROM, supple, no lymphadenopathy, JVD, or masses LUNGS: Referred upper airway wheezing, good breath sounds. Able to speak in full sentences. HEART: Regular rate and rhythm, normal S1 and S2, no murmurs, rubs or gallops ABDOMEN: Soft, nontender, normoactive bowel sounds. No guarding, no rebound. No masses EXTREMITIES: Normal range of motion, no edema. No clubbing or cyanosis. No cords, erythema, or tenderness NEUROLOGICAL: Cranial nerves II through XII grossly intact. Normal speech, normal gait SKIN: Warm, Dry, normal turgor, no rashes or lesions noted. <Smitha Wolfe - Last Filed: 12/24/16 23:49> - Vital Signs Last Vital Signs Temp Pulse Resp BP Pulse Ox 98.0 F 77 18 145/72 98 12/24/16 22:28 12/24/16 22:28 12/24/16 22:28 12/24/16 22:28 12/24/16 22:28 <Babs Welsh - Last Filed: 12/25/16 04:04> Medical Decision Making - Medical Decision Making 12/25/16 04:01 Pt comes with SOB; states her asthma is acting up given the change in weather. Pt has no other complaints. Afebrile. VSS. Pt takes prednisone daily 10mg, as prescribed by her PMD Sun. Pt will not require CXR, as her lung fu are clear. Pt will be treated with duoneb and tylenol for headache. Discharged once she was improved. <Babs Welsh - Last Filed: 12/25/16 04:04> *DC/Admit/Observation/Transfer - Attestations Scribe Attestion: 12/24/16 23:49 Documentation prepared by Smitha Wolfe, acting as emergency medical technician for Babs Welsh MD. <Smitha Wolfe - Last Filed: 12/24/16 23:49> <Babs Welsh - Last Filed: 12/25/16 04:04> Diagnosis at time of Disposition: eloped - Discharge Dispostion Disposition: ELOPED
[2016-12-24] MEDS ORDERED: ALBUTEROL SO4 2.5/IPRATROPIUM 0.5 INH SOL 3 ML VIAL.NEB. NEB ONE ×2 (23:43→23:51)
[2016-12-24] MEDS ORDERED: ACETAMINOPHEN 500 MG TABLET (FP) PO ONE (23:43)
[2016-12-24] MEDS ORDERED: ACETAMINOPHEN 325 MG TABLET (FP) ONE (23:50)
== END 2016-12-24 23:58 | disposition left against medical advice (07) ==
LOC: JER 22:27
DX: J45.909 Unspecified asthma, uncomplicated (principal); E78.00 Pure hypercholesterolemia, unspecified; F31.9 Bipolar disorder, unspecified
CPT/HCPCS: 99281-25

== ENCOUNTER 2016-12-27 21:53 | Emergency (ER) | payer MEDICARE ==
[2016-12-27 22:06] VITALS: BP 130/50; PULSE 96; TEMP 98.1; BMI 43.9
== END 2016-12-28 01:50 | disposition left against medical advice (07) ==
LOC: JER 21:53
DX: Z53.21 Procedure and treatment not carried out due to patient leaving prior to being seen by health care provider (principal)
CPT/HCPCS: 99281-25

== ENCOUNTER 2017-02-21 01:05 | Emergency (ER) | payer MEDICARE ==
[2017-02-21 01:29] VITALS: BP 156/106; PULSE 61; TEMP 98.4; BMI 44.8
[2017-02-21] MEDS ORDERED: ALBUTEROL SO4 2.5/IPRATROPIUM 0.5 INH SOL 3 ML VIAL.NEB. NEB ONE ×2 (01:45→01:48)
--- NOTE | 2017-02-21 01:47 | PDOC ---
History of Present Illness - General Chief Complaint: Pain Stated Complaint: DIFF BREATHING/BACK PAIN Time Seen by Provider: 02/21/17 01:29 - History of Present Illness Initial Comments: 02/21/17 01:47 CHIEF COMPLAINT: SOB, back pain HISTORY OF PRESENT ILLNESS: 51 yo F with hx of asthma and bipolar disease, well known to this ED with multiple elopements presents to ED with difficulty breathing and back pain. Patient reports that she was seen at [facility] today "for my bipolar disease and when I was at the hospital I fell onto my bottom." Patient reports getting x-rays of her lower back at [facility] that "were negative" and that "they gave me a shot, but I'm not sure what it was , and they also gave me some pain medicine but I took it a few hours ago and it didn't help me." Patient also reports that she took "20 of prednisone because of my breathing and I felt much better." Patient is ambulatory and walking around this ER's hallways on arrival. Denies loss of sensation to lower extremities, loss of bowel or bladder function. PAST MEDICAL HISTORY: as per HPI FAMILY HISTORY: Denies SOCIAL HISTORY: Denies tobacco, alcohol, illicit drug use. SURGICAL HISTORY: Denies ALLERGIES: sulfas REVIEW OF SYSTEMS General/Constitutional: Denies fever or chills. Denies weakness, weight change. HEENT: Denies change in vision. Denies ear pain or discharge. Denies sore throat. Cardiovascular: Denies chest pain or shortness of breath. Respiratory: Denies cough, wheezing, or hemoptysis. Gastrointestinal: Denies nausea, vomiting, diarrhea or constipation. Denies rectal bleeding. Genitourinary: Denies dysuria, frequency, or change in urination. Musculoskeletal: Lower back pain. Skin and breasts: Denies rash or easy bruising. Neurologic: Denies headache, vertigo, loss of consciousness, or loss of sensation. Psychiatric: Hx of bipolar disorder. PHYSICAL EXAM General Appearance: Well-appearing, appropriately dressed. No apparent distress. HEENT: EOMI, PERRLA. No photophobia, scleral icterus. Respiratory/Chest: Mild, diffuse wheezing b/l. No shortness of breath, chest tenderness, respiratory distress, accessory muscle use. No crackles, rales, rhonchi, stridor, dullness Cardiovascular: RRR. S1, S2. Gastrointestinal/Abdominal: Normal bowel sounds. Abdomen soft, non-distended. No tenderness or rebound tenderness. No organomegaly, pulsatile mass, guarding , hernia, hepatomegaly, splenomegaly. Musculoskeletal/Extremities: Patient ambulatory, sensory discrimination intact to b/l lower extremities. Normal inspection. FROM of all extremities, normal capillary refill. Pelvis Stable. No CVA tenderness. No tenderness to extremities, pedal edema, swelling, erythema or deformity. Integumentary: Appropriate color, dry, warm. 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 Fully oriented, alert. Appropriate mood/affect. Motor strength 5/5. No appreciable EOM palsy, facial droop or sensory deficit. 02/21/17 01:59 Past History - Past Medical History Allergies/Adverse Reactions: Allergies Allergy/AdvReac Type Severity Reaction Status Date / Time surjit Allergy Mild Verified 02/21/17 01:26 Sulfa (Sulfonamide Allergy Rash Verified 02/21/17 01:26 Antibiotics) [Sulfa(Sulfonamide Antibiotics)] Home Medications: Ambulatory Orders Haloperidol Decanoate [Haldol Decanoate 50] 50 mg IM MONTHLY 12/14/11 Budesonide/Formeterol Fumarate [SYMBICORT 160/4.5mcg -] 1 inh PO BID #1 inhaler 02/01/16 Prednisone [Deltasone -] 10 mg PO ONCE 02/01/16 Albuterol Sulfate Inhaler - [Ventolin HFA Inhaler -] 2 puff IH Q4H PRN #1 inhaler 10/17/16 Diclofenac Sodium 75 mg PO BID #10 tablet. 02/21/17 Anemia: No Asthma: Yes Cancer: No Cardiac Disorders: No CVA: No COPD: No CHF: No Dementia: No Diabetes: No GI Disorders: No Disorders: No HTN: No Hypercholesterolemia: Yes Liver Disease: No Psychiatric Problems: Yes (Bipolar) Seizures: No Thyroid Disease: No - Surgical History Abdominal Surgery: No Appendectomy: No Cardiac Surgery: No Cholecystectomy: No Lung Surgery: No Neurologic Surgery: No Orthopedic Surgery: No - Immunization History Immunization Up to Date: Yes - Suicide/Smoking/Psychosocial Hx Smoking Status: No Smoking History: Never smoked Have you smoked in the past 12 months: No Number of Cigarettes Smoked Daily: 0 Cigars Per Day: 0 Information on smoking cessation initiated: No Hx Alcohol Use: No Drug/Substance Use Hx: No Substance Use Type: None Hx Substance Use Treatment: No *Physical Exam - Vital Signs Last Vital Signs Temp Pulse Resp BP Pulse Ox 98.4 F 61 20 156/106 95 02/21/17 01:26 02/21/17 01:26 02/21/17 01:26 02/21/17 01:26 02/21/17 01:26 Medical Decision Making - Medical Decision Making 02/21/17 02:04 51 yo F with hx of asthma and bipolar disease, well known to this ED with multiple elopements presents to ED with difficulty breathing and back pain. -duoneb Patient states she will f/u with PCP Arin tomorrow. -diclofenac rx sent to pharm Ortho referral provided for further evaluation of back pain. *DC/Admit/Observation/Transfer Diagnosis at time of Disposition: Asthma exacerbation Qualifiers: Asthma severity: moderate Asthma persistence: persistent Qualified Code(s): J45.41 - Moderate persistent asthma with (acute) exacerbation Back pain Qualifiers: Back pain location: low back pain Chronicity: acute Back pain laterality: midline Sciatica presence: without sciatica Qualified Code(s): M54.5 - Low back pain - Discharge Dispostion Disposition: HOME Condition at time of disposition: Stable Admit: No - Prescriptions Prescriptions: Diclofenac Sodium 75 mg PO BID #10 tablet.dr - Referrals Referrals: Brittney Hinkle [Primary Care Provider] - Jadon Kirkland MD [Staff Physician] - - Patient Instructions Printed Discharge Instructions: DI for Low Back Pain, DI for Asthma -- Adult Additional Instructions: Please take medication as prescribed. Follow up with Dr. Hinkle and orthopedics as discussed. If you develop any loss of sensation to your legs, loss of bowel or bladder function, or are unable to walk, please return to the ER. - Post Discharge Activity
== END 2017-02-21 02:19 | disposition home or self-care (01) ==
LOC: JER 01:05
PROC: 3E0F7GC Introduction of Other Therapeutic Substance into Respiratory Tract, Via Natural or Artificial Opening (ICD-10-PCS; principal; 2017-02-21)
DX: J45.41 Moderate persistent asthma with (acute) exacerbation (principal); M54.5 Low back pain; E78.00 Pure hypercholesterolemia, unspecified; W19.XXXA Unspecified fall, initial encounter; Y93.89 Activity, other specified; Y92.238 Other place in hospital as the place of occurrence of the external cause
CPT/HCPCS: 99282-25

== ENCOUNTER → 2017-02-22 | Emergency (ER) | payer MEDICARE ==
[~2017-02-22] MED LIST: ALBUTEROL SO4 2.5/IPRATROPIUM 0.5 INH SOL 3 ML VIAL.NEB. NEB STA; ASPIRIN 81 MG CHEWABLE TABLETS ONE; predniSONE 20 MG TABLET (UD) ONE; predniSONE 20 MG TABLET (UD) PO ONE
[2017-02-22 23:06] VITALS: BP 133/78; PULSE 78; TEMP 98.6; BMI 44.8
--- NOTE | 2017-02-22 23:16 | PDOC ---
History of Present Illness - General History Source: Patient <Darrion Guajardo - Last Filed: 02/22/17 23:16> - General History Source: Patient Exam Limitations: No Limitations - History of Present Illness Initial Comments: 02/22/17 23:24 The patient is a 51 year old female, with a significant past medical history of asthma and bipolar disorder, who presents to the emergency department with shortness of breath for approximately 2 days. The patient reports she has been on a low dose of Prednisone (20 mg) for the past couple of days. However, yesterday, she developed worsening shortness of breath and associated wheezing, so her PCP advised her to take 40 mg of Prednisone. Today, patient reports she has not taken her medications and feels more short of breath. She reports associated shortness of breath with speaking and dry cough, but denies dyspnea on exertion or orthopnea. She denies any chest pain, diaphoresis, palpitations, or lower extremity edema. She denies any fever, chills, headache, or dizziness. She denies any recent travel or sick contacts. Allergies: Sulfa(Sulfonamide antibiotics) Past Surgical History: None reported Social History: Non smoker. No ETOH or recreational drug use PCP: Dr. Hinkle <Liliana Roca - Last Filed: 02/22/17 23:26> - General Chief Complaint: Asthma Stated Complaint: ASTHMA Time Seen by Provider: 02/22/17 23:14 Past History - Past Medical History Anemia: No Asthma: Yes Cancer: No Cardiac Disorders: No CVA: No COPD: No CHF: No Dementia: No Diabetes: No GI Disorders: No Disorders: No HTN: No Hypercholesterolemia: Yes Liver Disease: No Psychiatric Problems: Yes (Bipolar) Seizures: No Thyroid Disease: No - Surgical History Abdominal Surgery: No Appendectomy: No Cardiac Surgery: No Cholecystectomy: No Lung Surgery: No Neurologic Surgery: No Orthopedic Surgery: No - Immunization History Immunization Up to Date: Yes - Suicide/Smoking/Psychosocial Hx Smoking Status: No Smoking History: Never smoked Have you smoked in the past 12 months: No Number of Cigarettes Smoked Daily: 0 Cigars Per Day: 0 Information on smoking cessation initiated: No Hx Alcohol Use: No Drug/Substance Use Hx: No Substance Use Type: None Hx Substance Use Treatment: No <Darrion Guajardo - Last Filed: 02/22/17 23:16> <Liliana Roca - Last Filed: 02/22/17 23:26> - Past Medical History Allergies/Adverse Reactions: Allergies Allergy/AdvReac Type Severity Reaction Status Date / Time surjit Allergy Mild Verified 02/22/17 22:57 Sulfa (Sulfonamide Allergy Rash Verified 02/22/17 22:57 Antibiotics) [Sulfa(Sulfonamide Antibiotics)] Home Medications: Ambulatory Orders Haloperidol Decanoate [Haldol Decanoate 50] 50 mg IM MONTHLY 12/14/11 Budesonide/Formeterol Fumarate [SYMBICORT 160/4.5mcg -] 1 inh PO BID #1 inhaler 02/01/16 Prednisone [Deltasone -] 10 mg PO ONCE 02/01/16 Albuterol Sulfate Inhaler - [Ventolin HFA Inhaler -] 2 puff IH Q4H PRN #1 inhaler 10/17/16 Diclofenac Sodium 75 mg PO BID #10 tablet. 02/21/17 Review of Systems - Review of Systems Able to Perform ROS?: Yes Comments:: 02/22/17 23:24 CONSTITUTIONAL: Absent: fever, no chills, no fatigue EYES: Absent: visual changes ENT: Absent: ear pain, no sore throat CARDIOVASCULAR: Absent: chest pain, no palpitations RESPIRATORY: Present: cough, SOB, SOB with speaking Absent: dyspnea on exertion, orthopnea GI: Absent: abdominal pain, no nausea, no vomiting, no constipation, no diarrhea GENITOURINARY: Absent: dysuria, no frequency, no hematuria MUSCULOSKELETAL: Absent: back pain, no arthralgia, no myalgia SKIN: Absent: rash NEURO: Absent: headache <Liliana Roca - Last Filed: 02/22/17 23:26> *Physical Exam - Vital Signs Last Vital Signs Temp Pulse Resp BP Pulse Ox 98.6 F 78 21 133/78 99 02/22/17 22:40 02/22/17 22:40 02/22/17 22:40 02/22/17 22:40 02/22/17 22:55 <Darrion Guajardo - Last Filed: 02/22/17 23:16> - Vital Signs Last Vital Signs Temp Pulse Resp BP Pulse Ox 98.6 F 78 21 133/78 99 02/22/17 22:40 02/22/17 22:40 12/14/17 22:40 02/22/17 22:40 02/22/17 22:55 - Physical Exam Comments: 02/22/17 23:24 GENERAL: Well-appearing, well-nourished. No apparent distress. HEENT: Normocephalic, atraumatic. PERRL, EOM intact. CARDIOVASCULAR: Normal S1, S2. Regular rate and rhythm. PULMONARY: Decreased breath sounds bilaterally with scattered wheezing. Conversational dyspnea ABDOMEN: Soft, non-distended, non-tender. EXTREMITIES: Normal ROM in all four extremities. No gross deformities. SKIN: Warm, dry. No rash NEUROLOGICAL: No focal neurological deficits. <Liliana Roca - Last Filed: 02/22/17 23:26> *DC/Admit/Observation/Transfer <Darrion Guajardo - Last Filed: 02/22/17 23:16> - Attestations Scribe Attestion: 02/22/17 23:24 Documentation prepared by Liliana Roca, acting as medical interpreter for Darrion Guajardo DO. <Liliana Roca - Last Filed: 02/22/17 23:26> - Referrals Referrals: Brittney Hinkle [Primary Care Provider] - - Patient Instructions - Post Discharge Activity
== END | disposition left against medical advice (07) ==
LOC: JER 22:32
PROC: 3E0F7GC Introduction of Other Therapeutic Substance into Respiratory Tract, Via Natural or Artificial Opening (ICD-10-PCS; principal; 2017-02-22)
DX: J45.909 Unspecified asthma, uncomplicated (principal)
CPT/HCPCS: 99282-25

== ENCOUNTER 2017-02-23 08:05 | Emergency (ER) | payer MEDICARE ==
[2017-02-23 08:09] VITALS: BP 145/88; PULSE 76; TEMP 98.1; BMI 44.8
--- NOTE | 2017-02-23 08:40 | PDOC ---
History of Present Illness - General Chief Complaint: Asthma Stated Complaint: ASTHMA Time Seen by Provider: 02/23/17 08:19 History Source: Patient Exam Limitations: No Limitations - History of Present Illness Initial Comments: 02/23/17 09:00 Patient is a [51-year-old female with history of asthma and bipolar disorder. Patient comes to emergency department complaining of shortness of breathe and left sided, nonradiating chest pain. Was seen in the ER yesterday for asthma, has been taking low dose Prednisone for a month, 20 mg per day. Was given respiratory treatment yesterday and she felt better. Upon arrival, after questioning, patient reports two weeks of bilateral lower extremity edema. Past Medical History: [asthma, bipolar]. Allergies: [place], Sulfa Medications: [Haldol, albuterol] Family History: Non-contributory Social History: Denies smoking, alcohol use, or IVDU Vital signs on arrival are [notable for pulse of 76.] PCP: Dr. Hinkle Review of Systems GENERAL/CONSTITUTIONAL: [No fever or chills. No weakness. No weight change.] HEAD, EYES, EARS, NOSE AND THROAT: [No change in vision. No ear pain or discharge. No sore throat. ] CARDIOVASCULAR: [Left sided chest pain and SOB] RESPIRATORY: [No cough, wheezing, or hemoptysis.] GASTROINTESTINAL: [No nausea, vomiting, diarrhea or constipation. No rectal bleeding.] GENITOURINARY: [No dysuria, frequency, or change in urination.] MUSCULOSKELETAL: [No joint or muscle swelling or pain. No neck or back pain.] SKIN AND BREASTS: [No rash or easy bruising.] NEUROLOGIC: [No headache, vertigo, loss of consciousness, or loss of sensation.] PSYCHIATRIC: [No depression or anxiety.] ENDOCRINE: [No increased thirst. No abnormal weight change.] HEMATOLOGIC/LYMPHATIC: [No anemia, easy bleeding, or history of blood clots.] ALLERGIC/IMMUNOLOGIC: [No hives or skin allergy. No latex allergy.] Physical Exam: GENERAL: [The patient is awake, alert, and fully oriented, in no acute distress. ] HEAD: [Normal with no signs of trauma.] EYES: [Pupils equal, round and reactive to light, extraocular movements intact, sclera anicteric, conjunctiva clear.] ENT: [Ears normal, nares patent, oropharynx clear without exudates. Moist mucous membranes. No uvula deviation] NECK: [Normal range of motion, supple without lymphadenopathy, JVD, or masses.] LUNGS: [Breath sounds equal, clear to auscultation bilaterally. No wheezes, and no crackles.] HEART: [Regular rate and rhythm, normal S1 and S2 without murmur, rub or gallop. ] ABDOMEN: [Soft, nontender, normoactive bowel sounds. No guarding, no rebound. No masses. No bruising or abrasions] MUSCULOSKELETAL: [Normal range of motion, no edema. No clubbing or cyanosis. No cords, erythema, or tenderness. No CVA Tenderness with fist.] NEUROLOGICAL: [Cranial nerves II through XII grossly intact. Normal speech, normal gait.] SKIN: [Warm, Dry, normal turgor, no rashes or lesions noted.] 02/23/17 09:09 02/23/17 09:10 Past History - Past Medical History Allergies/Adverse Reactions: Allergies Allergy/AdvReac Type Severity Reaction Status Date / Time surjit Allergy Mild Verified 02/23/17 08:09 Sulfa (Sulfonamide Allergy Rash Verified 02/23/17 08:09 Antibiotics) [Sulfa(Sulfonamide Antibiotics)] Home Medications: Ambulatory Orders Haloperidol Decanoate [Haldol Decanoate 50] 50 mg IM MONTHLY 12/14/11 Budesonide/Formeterol Fumarate [SYMBICORT 160/4.5mcg -] 1 inh PO BID #1 inhaler 02/01/16 Prednisone [Deltasone -] 10 mg PO ONCE 02/01/16 Albuterol Sulfate Inhaler - [Ventolin HFA Inhaler -] 2 puff IH Q4H PRN #1 inhaler 10/17/16 Diclofenac Sodium 75 mg PO BID #10 tablet. 02/21/17 Anemia: No Asthma: Yes Cancer: No Cardiac Disorders: No CVA: No COPD: No CHF: No DVT: No Dementia: No Diabetes: No GI Disorders: No Disorders: No HTN: No Hypercholesterolemia: Yes Liver Disease: No Psychiatric Problems: Yes (Bipolar) Seizures: No Thyroid Disease: No - Surgical History Abdominal Surgery: No Appendectomy: No Cardiac Surgery: No Cholecystectomy: No Lung Surgery: No Neurologic Surgery: No Orthopedic Surgery: No - Immunization History Immunization Up to Date: Yes - Suicide/Smoking/Psychosocial Hx Smoking Status: No Smoking History: Never smoked Have you smoked in the past 12 months: No Number of Cigarettes Smoked Daily: 0 Cigars Per Day: 0 Information on smoking cessation initiated: No Hx Alcohol Use: No Drug/Substance Use Hx: No Substance Use Type: None Hx Substance Use Treatment: No Respiratory Specific PMHX - Complaint Specific PMHX Angina: No Bronchitis: Yes Pneumonia: No Pulmonary Embolus: No TB (Tuberculosis): No *Physical Exam - Vital Signs Last Vital Signs Temp Pulse Resp BP Pulse Ox 98.1 F 76 18 145/88 97 02/23/17 08:08 02/23/17 08:08 02/23/17 08:08 02/23/17 08:08 02/23/17 08:08 ED Treatment Course - LABORATORY CBC & Chemistry Diagram: 02/23/17 09:10 02/23/17 09:50 Medical Decision Making - Medical Decision Making 02/23/17 09:11 A/P: Patient here stating that she short of breath history of asthma, left- sided chest pain patient is associating the left side of her chest pain with her asthma. On clinical exam lungs are clear, responds sudden onset of shortness of breath with left-sided chest pain patient sent to main emergency department for higher level of care spoke to Mason Chu nurse practitioner, report given. Patient stable for transfer. *DC/Admit/Observation/Transfer Diagnosis at time of Disposition: Shortness of breath - Discharge Dispostion Disposition: ELOPED Condition at time of disposition: Fair - Referrals Referrals: Brittney Hinkle [Primary Care Provider] - - Patient Instructions - Post Discharge Activity
[2017-02-23] MEDS ORDERED: ASPIRIN 81 MG CHEWABLE TABLETS PO ONE (08:43)
--- NOTE | 2017-02-23 09:01 | PDOC ---
*Physical Exam - Vital Signs Last Vital Signs Temp Pulse Resp BP Pulse Ox 98.1 F 76 18 145/88 97 02/23/17 08:08 02/23/17 08:08 02/23/17 08:08 02/23/17 08:08 02/23/17 08:08 - Physical Exam General Appearance: Yes: Appropriately Dressed. No: Apparent Distress HEENT: positive: LISA, Normal ENT Inspection Neck: positive: Trachea midline, Supple Respiratory/Chest: positive: Lungs Clear, Normal Breath Sounds. negative: Respiratory Distress, Accessory Muscle Use Cardiovascular: positive: Regular Rhythm, Regular Rate, S1, S2, Edema (+2 pitting). negative: Murmur Vascular Pulses: Dorsalis-Pedis (R): 2+, Doralis-Pedis (L): 2+ Gastrointestinal/Abdominal: positive: Normal Bowel Sounds, Soft. negative: Tender Musculoskeletal: positive: Normal Inspection. negative: CVA Tenderness Extremity: positive: Normal Capillary Refill, Normal Inspection, Normal Range of Motion Integumentary: positive: Normal Color, Dry, Warm Neurologic: positive: waste examiner II-XII NML intact, Fully Oriented, Alert, Normal Mood/ Affect, Normal Response, Motor Strength 5/5 <Bright Chu - Last Filed: 02/23/17 13:31> - Vital Signs Last Vital Signs Temp Pulse Resp BP Pulse Ox 98.1 F 76 18 145/88 97 02/23/17 08:08 02/23/17 08:08 02/23/17 08:08 02/23/17 08:08 02/23/17 08:08 <Everardo Bullock - Last Filed: 02/23/17 13:36> Heart Score/ECG Review - History History: Slightly suspicious - Electrocardiogram EKG: Normal - Age Age: 45-65 - Risk Factors Based on the list above the patient has:: No risk factors known - Troponin Troponin: </= normal limit - Score Heart Score - Total: 1 - ECG Intrepretation Rhythm: Regular Rhythm <Bright Chu - Last Filed: 02/23/17 13:31> - ECG Impressions Comment:: 02/23/17 10:27 Twelve-lead EKG was performed and reviewed by me. There is normal sinus rhythm with a normal rate. Rate of 70 Nonspecific T-wave inversion in lead 3 <Everardo Bullock - Last Filed: 02/23/17 13:36> ED Treatment Course - LABORATORY CBC & Chemistry Diagram: 02/23/17 09:10 02/23/17 09:50 - RADIOLOGY Radiology Studies Ordered: Category Date Time Status CHEST PA & LAT [RAD] Stat Radiology 02/23/17 08:48 Ordered - Medications Given in the ED: ED Medications Discontinued Medications Generic Name Dose Route Start Last Admin Trade Name Freq PRN Reason Stop Dose Admin Aspirin 162 mg 02/23/17 08:43 02/23/17 08:48 Asa - PO 02/23/17 08:44 162 mg ONCE ONE Administration <Bright Chu - Last Filed: 02/23/17 13:31> - LABORATORY CBC & Chemistry Diagram: 02/23/17 09:10 02/23/17 09:50 - ADDITIONAL ORDERS Additional order review: Laboratory Results 02/23/17 02/23/17 09:29 09:10 PT with INR 11.10 INR 0.98 Urine HCG, Qual Negative 02/23/17 09:10 RBC 4.79 MCV 80.6 MCHC 31.7 L RDW 16.8 H MPV 8.0 Neutrophils % 81.8 D Lymphocytes % 15.3 D Monocytes % 2.3 L Eosinophils % 0.1 D Basophils % 0.5 - Medications Given in the ED: ED Medications Discontinued Medications Generic Name Dose Route Start Last Admin Trade Name Freq PRN Reason Stop Dose Admin Aspirin 162 mg 02/23/17 08:43 02/23/17 08:48 Asa - PO 02/23/17 08:44 162 mg ONCE ONE Administration <Everardo Bullock - Last Filed: 02/23/17 13:36> Medical Decision Making - Medical Decision Making 02/23/17 09:01 A/P: This is a 51-year-old female with past medical history of bipolar disorder and asthma presents to the emergency department with acute onset shortness of breath and left-sided chest pain starting approximately one hour prior to arrival. She describes the pain as a pressure radiating 7 out of 10 on the left chest at the fourth intercostal space and left sternal border. Lungs clear to auscultation bilaterally. No respiratory distress or sensory muscle use is present. RRR. S1 and S2 are presents no murmur, rub or gallop noted. Abdomen is soft nontender nondistended. Normoactive bowel sounds. +2 pitting edema noted in bilateral lower extremities patient states Ione edematous for approximately 2 weeks. Differential diagnoses: PE, ACS, pneumonia, GERD, hiatal hernia, costochondritis , asthma exacerbation Less likely asthma given lungs are clear and no respiratory distress. Patient maintain O2 saturation without restrained distress PE is less likely on the differential. Patient has never been evaluated for CHF according the patient therefore I will perform complete ACS workup including EKG 2, troponin, CBC, CMP, coagulation profile, BNP, chest x-ray and aspirin 325 mg. I will reevaluate patient after all testing is completed. 02/23/17 12:09 RAD/CHEST PA LAT Chest pain. Chest 2 views. Comparison study December 20, 2015. Unremarkable contour of the cardiomediastinal silhouette. The lungs are well aerated. No evidence of pneumonia, CHF, pleural effusion or pneumothorax. No bulky hilar adenopathy is seen. No lung mass is seen within the limitation of examination. Intact visualized osseous structures. Impression. No evidence of active pulmonary disease. Reported By: Augustine Munoz MD 02/23/17 [id number]. Given heart score of 1, patient is a likelihood to have a cardiac event. I will obtain 2 troponins and if the second one is negative I will discharge the patient with follow-up with her primary doctor. EKG with low-voltage QRS I will obtain echo to rule out pericardial effusion prior to discharge. Unable to find patient on unit. I called the patient's cell phone which she answered stating she was at her psychiatrist appointment for her monthly injection of Haldol. Patient states return to emergency department after her Haldol injection for continued treatment. <Bright Chu - Last Filed: 02/23/17 13:31> *DC/Admit/Observation/Transfer <Bright Chu - Last Filed: 02/23/17 13:31> <Everardo Bullock - Last Filed: 02/23/17 13:36> Diagnosis at time of Disposition: Shortness of breath - Discharge Dispostion Disposition: ELOPED - Referrals Referrals: Brittney Hinkle [Primary Care Provider] - - Patient Instructions - Post Discharge Activity
[2017-02-23 09:20] LABS: BASOPHIL 0.5 % (0-2.0); EOSINOPHIL 0.1 % (0-4.5); MCH 25.5 pg (25.7-33.7); MCHC 31.7 g/dl (32.0-36.0); MEAN CELL VOLUME 80.6 fl (80-96); NEUTROPHILS 81.8 % (42.8-82.8); PLATELET COUNT 420 K/MM3 (134-434); RDW 16.8 % (11.6-15.6); WHITE BLOOD COUNT 9.5 K/mm3 (4.0-10.0)
[2017-02-23 09:37] LABS: INR 0.98 (0.82-1.09); PROTHROMBIN TIME (PATIENT) 11.1 SEC (9.98-11.88)
[2017-02-23 10:09] LABS: ALBUMIN 2.8 g/dl (3.4-5.0); ANION GAP 6 (8-16); CALCIUM 8.7 mg/dL (8.5-10.1); CO2 28 mmol/L (21-32); CREATININE 1.1 mg/dL (0.55-1.02); GLUCOSE,RANDOM 140 mg/dL (74-106); SGPT/ALT 14 U/L (12-78)
[2017-02-23 10:13] LABS: ALK PHOS 117 U/L (45-117); BILIRUBIN,TOTAL 0.3 mg/dL (0.2-1.0); CPK 92 IU/L (26-192); TOT PROT 7.1 g/dl (6.4-8.2); TROPONIN I < 0.02 ng/ml (0.00-0.05)
[2017-02-23 10:38] LABS: MAGNESIUM 2.5 mg/dL (1.8-2.4); SGOT/AST 13 U/L (15-37)
--- NOTE | 2017-02-27 01:54 | EKG ---
Test Reason : Blood Pressure : / mmHG Vent. Rate : 070 BPM Atrial Rate : 070 BPM P-R Int : 156 ms QRS Dur : 074 ms QT Int : 402 ms P-R-T Axes : 048 -13 011 degrees QTc Int : 434 ms NORMAL SINUS RHYTHM LOW VOLTAGE QRS BORDERLINE ECG WHEN COMPARED WITH ECG OF 05-AUG-2015 15:10, NO SIGNIFICANT CHANGES Confirmed by HALIE RIVERA MD ([id number]) on 02/27/2017 1:54:19 AM Referred By: Confirmed By:HALIE RIVERA MD
== END 2017-02-23 14:25 | disposition left against medical advice (07) ==
LOC: JER 08:05 → JERFT 08:05 → JER 14:25
DX: R06.02 Shortness of breath (principal); J45.909 Unspecified asthma, uncomplicated; E78.00 Pure hypercholesterolemia, unspecified; F31.9 Bipolar disorder, unspecified
CPT/HCPCS: 36415; 71020-TC; 80053; 82550; 83735; 83880; 84484; 84703; 85025; 85610; 93005; 93010; 99283-25

== ENCOUNTER 2017-02-26 01:21 | Emergency (ER) | payer MEDICARE ==
[2017-02-26 01:48] VITALS: BP 141/98; PULSE 101; TEMP 97.9; BMI 44.8
--- NOTE | 2017-02-26 02:35 | PDOC ---
History of Present Illness <Babs Welsh - Last Filed: 02/26/17 03:08> - General History Source: Patient Exam Limitations: No Limitations - History of Present Illness Initial Comments: 02/26/17 03:42 Patient is a 51 year old woman with a significant past medical history of asthma and bipolar disorder, diabetes, HTN, who presents to the ED with complaints of SOB that began this morning at 1am. Patient reports eating oatmeal this morning when she began experiencing SOB. Patient states states she began to be concerned about her SOB so she came into the ED for further evaluation. She reports her last hospitalization for asthma attack was 1 year ago. Patient reports that she usually experiences 2 asthma attacks per day. Patient currently complains of a headache while Denies chest pain. Denies nausea, vomiting. Denies fever, chills. Denies change in diet. Denies any other symptoms. Allergies: Sulfa, [place]. Past Surgical History: None reported. Social History: Non smoker. Denies alcohol or drug use. PCP: Dr. Hinkle <Augustine Swain - Last Filed: 02/26/17 03:42> - General Chief Complaint: Asthma Stated Complaint: ASTHMA Time Seen by Provider: 02/26/17 02:07 Past History - Past Medical History Anemia: No Asthma: Yes Cancer: No Cardiac Disorders: No CVA: No COPD: No CHF: No DVT: No Dementia: No Diabetes: No GI Disorders: No Disorders: No HTN: No Hypercholesterolemia: Yes Liver Disease: No Psychiatric Problems: Yes (Bipolar) Seizures: No Thyroid Disease: No - Surgical History Abdominal Surgery: No Appendectomy: No Cardiac Surgery: No Cholecystectomy: No Lung Surgery: No Neurologic Surgery: No Orthopedic Surgery: No - Immunization History Immunization Up to Date: Yes - Suicide/Smoking/Psychosocial Hx Smoking Status: No Smoking History: Never smoked Have you smoked in the past 12 months: No Number of Cigarettes Smoked Daily: 0 Cigars Per Day: 0 Information on smoking cessation initiated: No Hx Alcohol Use: No Drug/Substance Use Hx: No Substance Use Type: None Hx Substance Use Treatment: No <Babs Welsh - Last Filed: 02/26/17 03:08> <Augustine Swain - Last Filed: 02/26/17 03:42> - Past Medical History Allergies/Adverse Reactions: Allergies Allergy/AdvReac Type Severity Reaction Status Date / Time surjit Allergy Mild Verified 02/26/17 01:32 Sulfa (Sulfonamide Allergy Rash Verified 02/26/17 01:32 Antibiotics) [Sulfa(Sulfonamide Antibiotics)] Home Medications: Ambulatory Orders Haloperidol Decanoate [Haldol Decanoate 50] 50 mg IM MONTHLY 12/14/11 Budesonide/Formeterol Fumarate [SYMBICORT 160/4.5mcg -] 1 inh PO BID #1 inhaler 02/01/16 Prednisone [Deltasone -] 10 mg PO ONCE 02/01/16 Albuterol Sulfate Inhaler - [Ventolin HFA Inhaler -] 2 puff IH Q4H PRN #1 inhaler 10/17/16 Diclofenac Sodium 75 mg PO BID #10 tablet. 02/21/17 Review of Systems - Review of Systems Able to Perform ROS?: Yes Comments:: 02/26/17 03:42 GENERAL/CONSTITUTIONAL: No fever or chills. No weakness. HEAD, EYES, EARS, NOSE AND THROAT: No change in vision. No ear pain or discharge. No sore throat. CARDIOVASCULAR: +SOB No chest pain RESPIRATORY: No cough, wheezing, or hemoptysis. GASTROINTESTINAL: No nausea, vomiting, diarrhea or constipation. GENITOURINARY: No dysuria, frequency, or change in urination. MUSCULOSKELETAL: No joint or muscle swelling or pain. No neck or back pain. SKIN: No rash NEUROLOGIC: No headache, vertigo, loss of consciousness, or change in strength/ sensation. ENDOCRINE: No increased thirst. No abnormal weight change. HEMATOLOGIC/LYMPHATIC: No anemia, easy bleeding, or history of blood clots. ALLERGIC/IMMUNOLOGIC: No hives or skin allergy. All Other Systems: Reviewed and Negative <Augustine Swain - Last Filed: 02/26/17 03:42> *Physical Exam - Vital Signs Last Vital Signs Temp Pulse Resp BP Pulse Ox 97.9 F 101 H 20 141/98 96 02/26/17 01:32 02/26/17 01:32 02/26/17 01:32 02/26/17 01:32 02/26/17 01:32 <Babs Welsh - Last Filed: 02/26/17 03:08> - Vital Signs Last Vital Signs Temp Pulse Resp BP Pulse Ox 97.9 F 101 H 20 141/98 96 02/26/17 01:32 02/26/17 01:32 02/26/17 01:32 02/26/17 01:32 02/26/17 01:32 - Physical Exam Comments: 02/26/17 03:42 GENERAL: Awake, alert, and fully oriented, in no acute distress HEAD: No signs of trauma EYES: PERRLA, EOMI, sclera anicteric, conjunctiva clear NECK: Normal ROM, supple, no lymphadenopathy, JVD, or masses LUNGS: +Upper airway coarse breath sounds into throat Breath sounds equal, clear to auscultation bilaterally. No wheezes, and no crackles HEART: Regular rate and rhythm, normal S1 and S2, no murmurs, rubs or gallops ABDOMEN: Soft, nontender, normoactive bowel sounds. No guarding, no rebound. No masses EXTREMITIES: +Bilateral ankle edema Normal range of motion, no edema. No clubbing or cyanosis. No cords, erythema, or tenderness NEUROLOGICAL: Cranial nerves II through XII grossly intact. Normal speech, normal gait SKIN: Warm, Dry, normal turgor, no rashes or lesions noted. <Augustine Swain - Last Filed: 02/26/17 03:42> ED Treatment Course - Medications Given in the ED: ED Medications Discontinued Medications Generic Name Dose Route Start Last Admin Trade Name [place]mer PRN Reason Stop Dose Admin Acetaminophen 1,000 mg 02/26/17 02:39 02/26/17 02:56 Tylenol - PO 02/26/17 02:40 1,000 mg ONCE ONE Administration Ipratropium [place] 2 amp 02/26/17 02:39 02/26/17 02:56 Atrovent 0.02% Nebulizer - NEB 02/26/17 02:40 2 amp ONCE ONE Administration <Augustine Swain - Last Filed: 02/26/17 03:42> *DC/Admit/Observation/Transfer - Discharge Dispostion Admit: No <Babs Welsh - Last Filed: 02/26/17 03:08> - Attestations Scribe Attestion: 02/26/17 03:42 Documentation prepared by Augustine Swain, acting as special forces medical sergeant for Babs Welsh MD/DO. <Augustine Swain - Last Filed: 02/26/17 03:42> Diagnosis at time of Disposition: Asthma, Anxiety - Discharge Dispostion Disposition: HOME Condition at time of disposition: Improved - Referrals Referrals: Britntey Hinkle [Primary Care Provider] - - Patient Instructions Printed Discharge Instructions: Generalized Anxiety Disorder, DI for Shortness of Breath - Post Discharge Activity
[2017-02-26] MEDS ORDERED: IPRATROPIUM BR 0.02% 0.5 MG/2.5 ML VIAL.NEB. NEB ONE ×2 (02:39→02:52)
[2017-02-26] MEDS ORDERED: ACETAMINOPHEN 500 MG TABLET (FP) PO ONE (02:39)
[2017-02-26] MEDS ORDERED: ACETAMINOPHEN 325 MG TABLET (FP) ONE (02:52)
== END 2017-02-26 03:13 | disposition home or self-care (01) ==
LOC: JER 01:21
PROC: 3E0F7GC Introduction of Other Therapeutic Substance into Respiratory Tract, Via Natural or Artificial Opening (ICD-10-PCS; principal; 2017-02-26)
DX: J45.909 Unspecified asthma, uncomplicated (principal); F41.9 Anxiety disorder, unspecified; F31.9 Bipolar disorder, unspecified; I10 Essential (primary) hypertension; E11.9 Type 2 diabetes mellitus without complications
CPT/HCPCS: 94640; 99282-25

== ENCOUNTER 2017-05-08 03:08 | Emergency (ER) | payer MEDICARE ==
[2017-05-08 03:19] VITALS: BP 124/88; PULSE 78; TEMP 98.4; BMI 32.9
[2017-05-08] MEDS ORDERED: ACETAMINOPHEN 325 MG TABLET (FP) ONE (03:21)
[2017-05-08] MEDS ORDERED: ACETAMINOPHEN 500 MG TABLET (FP) PO ONE (03:25)
[2017-05-08] MEDS ORDERED: ALBUTEROL SO4 2.5/IPRATROPIUM 0.5 INH SOL 3 ML VIAL.NEB. NEB ONE (03:25)
--- NOTE | 2017-05-08 03:52 | PDOC ---
History of Present Illness - General Chief Complaint: Shortness of Breath Stated Complaint: ASTHMA ATTACK Time Seen by Provider: 05/08/17 03:20 History Source: Patient Exam Limitations: No Limitations - History of Present Illness Initial Comments: 05/08/17 03:47 Patient is a 51F with history of asthma and bipolar disorder here today complaining of wheezing for the last hour. She states that she took a breathing treatment and took a prednisone but did not improve her symptoms. She denies nausea, vomiting, fever, chills, and chest pain. She denies history of blood clot, recent travel, leg swelling. She endorses a mild headache. Past History - Past Medical History Allergies/Adverse Reactions: Allergies Allergy/AdvReac Type Severity Reaction Status Date / Time surjit Allergy Mild Verified 05/08/17 03:18 Sulfa (Sulfonamide Allergy Rash Verified 05/08/17 03:18 Antibiotics) [Sulfa(Sulfonamide Antibiotics)] Home Medications: Ambulatory Orders Haloperidol Decanoate [Haldol Decanoate 50] 50 mg IM MONTHLY 12/14/11 Budesonide/Formeterol Fumarate [SYMBICORT 160/4.5mcg -] 1 inh PO BID #1 inhaler 02/01/16 predniSONE [Deltasone -] 20 mg PO ONCE 02/01/16 Albuterol Sulfate Inhaler - [Ventolin HFA Inhaler -] 2 puff IH Q4H PRN #1 inhaler 10/17/16 Diclofenac Sodium 75 mg PO BID #10 tablet. 02/21/17 Anemia: No Asthma: Yes Cancer: No Cardiac Disorders: No CVA: No COPD: No CHF: No DVT: No Dementia: No Diabetes: No GI Disorders: No Disorders: No HTN: No Hypercholesterolemia: Yes Liver Disease: No Psychiatric Problems: Yes (Bipolar) Seizures: No Thyroid Disease: No - Surgical History Abdominal Surgery: No Appendectomy: No Cardiac Surgery: No Cholecystectomy: No Lung Surgery: No Neurologic Surgery: No Orthopedic Surgery: No - Immunization History Immunization Up to Date: Yes - Suicide/Smoking/Psychosocial Hx Smoking Status: No Smoking History: Never smoked Have you smoked in the past 12 months: No Number of Cigarettes Smoked Daily: 0 Cigars Per Day: 0 Hx Alcohol Use: No Drug/Substance Use Hx: No Substance Use Type: None Hx Substance Use Treatment: No Review of Systems - Review of Systems Comments:: 05/08/17 03:51 GENERAL/CONSTITUTIONAL: No fever or chills. No weakness. HEAD, EYES, EARS, NOSE AND THROAT: No change in vision. No sore throat. CARDIOVASCULAR: No chest pain. Positive for shortness of breath RESPIRATORY: No cough or hemoptysis. Positive for wheezing. GASTROINTESTINAL: No nausea, vomiting, diarrhea or constipation. GENITOURINARY: No dysuria, frequency, or change in urination. SKIN: No rash NEUROLOGIC: No headache, vertigo, loss of consciousness, or change in strength/ sensation. ENDOCRINE: No increased thirst. No abnormal weight change ALLERGIC/IMMUNOLOGIC: No hives or skin allergy. *Physical Exam - Vital Signs Last Vital Signs Temp Pulse Resp BP Pulse Ox 98.4 F 78 18 124/88 100 05/08/17 03:18 05/08/17 03:18 05/08/17 03:18 05/08/17 03:18 05/08/17 03:18 - Physical Exam Comments: 05/08/17 03:52 GENERAL: Awake, alert, and fully oriented, in no acute distress HEAD: No signs of trauma, normocephalic, atraumatic EYES: PERRLA, EOMI, sclera anicteric, conjunctiva clear ENT: Auricles normal inspection, hearing grossly normal, nares patent, oropharynx clear without exudates. Moist mucosa NECK: Normal ROM, supple, no lymphadenopathy, JVD, or masses LUNGS: No distress, speaks full sentences, scattered wheezes bilaterall HEART: Regular rate and rhythm, normal S1 and S2, no murmurs, rubs or gallops, peripheral pulses normal and equal bilaterally. EXTREMITIES: Normal inspection, Normal range of motion, no edema. No clubbing or cyanosis. NEUROLOGICAL: Cranial nerves II through XII grossly intact. Normal speech, normal gait, no focal sensorimotor deficits SKIN: Warm, Dry, normal turgor, no rashes or lesions noted. ED Treatment Course - Medications Given in the ED: ED Medications Discontinued Medications Generic Name Dose Route Start Last Admin Trade Name Freq PRN Reason Stop Dose Admin Acetaminophen 1,000 mg 05/08/17 03:25 05/08/17 03:27 Tylenol - PO 05/08/17 03:26 1,000 mg ONCE ONE Administration Albuterol/Ipratropium 1 amp 05/08/17 03:25 05/08/17 03:27 Duoneb - NEB 05/08/17 03:26 1 amp ONCE ONE Administration Medical Decision Making - Medical Decision Making 05/08/17 03:54 Patient is 51F with history of asthma and bipolar disorder here today with wheezing. Vital signs stable and normal. Patient breathing easily. Complaining of headache and asking for tylenol. Will treat with duoneb and tylenol. Patient states that she's feeling better after treatment. Patient then eloped from ED. *DC/Admit/Observation/Transfer Diagnosis at time of Disposition: Asthma exacerbation - Discharge Dispostion Disposition: ELOPED Condition at time of disposition: Good Admit: No - Referrals Referrals: Brittney Hinkle [Primary Care Provider] - - Patient Instructions - Post Discharge Activity
== END 2017-05-08 03:54 | disposition home or self-care (01) ==
LOC: JER 03:08
PROC: 3E0F7GC Introduction of Other Therapeutic Substance into Respiratory Tract, Via Natural or Artificial Opening (ICD-10-PCS; principal; 2017-05-08)
DX: J45.901 Unspecified asthma with (acute) exacerbation (principal); F31.9 Bipolar disorder, unspecified
CPT/HCPCS: 94640; 99281-25

== ENCOUNTER 2017-05-09 06:53 | Emergency (ER) | payer MEDICARE ==
[2017-05-09 07:12] VITALS: TEMP 98; BMI 45.7
[2017-05-09] MEDS ORDERED: ALBUTEROL SO4 2.5/IPRATROPIUM 0.5 INH SOL 3 ML VIAL.NEB. NEB ONE ×2 (07:25→07:53)
[2017-05-09] MEDS ORDERED: predniSONE 20 MG TABLET (UD) ONE (07:28)
[2017-05-09] MEDS ORDERED: ACETAMINOPHEN 325 MG TABLET (FP) ONE (07:51)
[2017-05-09] MEDS ORDERED: ACETAMINOPHEN 325 MG TABLET (FP) PO ONE (07:52)
--- NOTE | 2017-05-09 07:52 | PDOC ---
History of Present Illness - General Chief Complaint: Shortness of Breath Stated Complaint: DIFFICULTY BREATHING,ASTHMA Time Seen by Provider: 05/09/17 07:23 History Source: Patient - History of Present Illness Timing/Duration: reports: this morning Severity: reports: mild Associated Symptoms: reports: shortness of breath. denies: cough, fever/chills , wheezing Past History - Past Medical History Allergies/Adverse Reactions: Allergies Allergy/AdvReac Type Severity Reaction Status Date / Time surjit Allergy Mild Verified 05/09/17 07:08 Sulfa (Sulfonamide Allergy Rash Verified 05/09/17 07:08 Antibiotics) [Sulfa(Sulfonamide Antibiotics)] Home Medications: Ambulatory Orders Haloperidol Decanoate [Haldol Decanoate 50] 50 mg IM MONTHLY 12/14/11 Budesonide/Formeterol Fumarate [SYMBICORT 160/4.5mcg -] 1 inh PO BID #1 inhaler 02/01/16 predniSONE [Deltasone -] 20 mg PO ONCE 02/01/16 Albuterol Sulfate Inhaler - [Ventolin HFA Inhaler -] 2 puff IH Q4H PRN #1 inhaler 10/17/16 Diclofenac Sodium 75 mg PO BID #10 tablet. 02/21/17 Anemia: No Asthma: Yes Cancer: No Cardiac Disorders: No CVA: No COPD: No CHF: No DVT: No Dementia: No Diabetes: No GI Disorders: No Disorders: No HTN: No Hypercholesterolemia: Yes Liver Disease: No Psychiatric Problems: Yes (Bipolar) Seizures: No Thyroid Disease: No - Surgical History Abdominal Surgery: No Appendectomy: No Cardiac Surgery: No Cholecystectomy: No Lung Surgery: No Neurologic Surgery: No Orthopedic Surgery: No - Immunization History Immunization Up to Date: Yes - Suicide/Smoking/Psychosocial Hx Smoking Status: No Smoking History: Never smoked Have you smoked in the past 12 months: No Number of Cigarettes Smoked Daily: 0 Cigars Per Day: 0 Hx Alcohol Use: No Drug/Substance Use Hx: No Substance Use Type: None Hx Substance Use Treatment: No Respiratory Specific PMHX - Complaint Specific PMHX Angina: No Bronchitis: Yes Pneumonia: No Pulmonary Embolus: No TB (Tuberculosis): No Review of Systems - Review of Systems Constitutional: No: Fever Respiratory: Yes: Shortness of Breath. No: Cough, Wheezing Cardiac (ROS): Yes: Chest Tightness *Physical Exam - Vital Signs Last Vital Signs Temp Pulse Resp BP Pulse Ox 98 F 61 19 138/90 98 05/09/17 07:09 05/09/17 07:09 05/09/17 07:09 05/09/17 07:09 05/09/17 07:09 - Physical Exam General Appearance: Yes: Appropriately Dressed. No: Apparent Distress HEENT: positive: Normal Voice Neck: positive: Supple Respiratory/Chest: positive: Lungs Clear, Normal Breath Sounds. negative: Respiratory Distress, Accessory Muscle Use, Wheezing Cardiovascular: positive: Regular Rate, S1, S2 Integumentary: positive: Dry, Warm Neurologic: positive: Fully Oriented, Alert, Normal Mood/Affect Medical Decision Making - Medical Decision Making 05/09/17 07:50 51-year-old female, history of bipolar, severe asthmatic on prednisone daily, f /u with outside licensed mental health professional, also uses pump and nebulizer at home, status post admission a year ago, status post intubation 5 years ago, here with shortness of breath that started an hour prior to arrival. Also complaining of chest tightness. No wheezing. Denies cough, fever or chills. States asthma symptoms triggered when she eats cheese and is exposed to cold weather. States today's exacerbation is not the worst See exam Asthma flare Stable and speaking in full sentences w/ clear chest/lungs -nebs -pred (40mg as pt steroid dependent and took 20mg this am) -reassess 05/09/17 07:53 After 1 DuoNeb, patient states she feels well enough to go home. Remained stable with clear chest, lungs, and able to ambulate without shortness of breath. Will discharge to continue prednisone and to take 40mg daily for next 4 days and then decrease to her usual 20mg/day. Pt to follow-up with her licensed mental health professional *DC/Admit/Observation/Transfer Diagnosis at time of Disposition: Asthma flare Qualifiers: Asthma severity: mild Asthma persistence: unspecified Qualified Code(s): J45.901 - Unspecified asthma with (acute) exacerbation - Discharge Dispostion Disposition: HOME Condition at time of disposition: Improved - Referrals Referrals: Brittney Hinkle [Primary Care Provider] - - Patient Instructions Printed Discharge Instructions: Asthma -- Adult Additional Instructions: For the next 4 days, take 40 mg of prednisone and after that you can reduce it back to 20 mg per day. Return for worsening of symptoms. Follow-up with your licensed mental health professional - Post Discharge Activity
[2017-05-09] MEDS ORDERED: predniSONE 20 MG TABLET (UD) PO ONE (07:53)
--- NOTE | 2017-05-09 08:07 | PDOC ---
*Physical Exam - Vital Signs Last Vital Signs Temp Pulse Resp BP Pulse Ox 98 F 61 19 138/90 100 05/09/17 07:09 05/09/17 07:09 05/09/17 07:09 05/09/17 07:09 05/09/17 07:22 - Physical Exam Comments: 05/09/17 08:06 The patient was examined by [ASHA Durham] under my direct supervision. I personally evaluated the patient. I concur with the above findings and the plan of care. ED Treatment Course - Medications Given in the ED: ED Medications Discontinued Medications Generic Name Dose Route Start Last Admin Trade Name Fretracy PRN Reason Stop Dose Admin Acetaminophen 650 mg 05/09/17 07:52 05/09/17 07:54 Tylenol - PO 05/09/17 07:53 650 mg ONCE ONE Administration Albuterol/Ipratropium 1 amp 05/09/17 07:53 05/09/17 07:29 Duoneb - NEB 05/09/17 07:54 1 amp ONCE ONE Administration Prednisone 40 mg 05/09/17 07:53 05/09/17 07:29 Deltasone - PO 05/09/17 07:54 40 mg ONCE ONE Administration *DC/Admit/Observation/Transfer Diagnosis at time of Disposition: Asthma flare Qualifiers: Asthma severity: mild Asthma persistence: unspecified Qualified Code(s): J45.901 - Unspecified asthma with (acute) exacerbation - Discharge Dispostion Disposition: HOME Condition at time of disposition: Improved - Referrals Referrals: Brittney Hinkle [Primary Care Provider] - - Patient Instructions Printed Discharge Instructions: Asthma -- Adult Additional Instructions: For the next 4 days, take 40 mg of prednisone and after that you can reduce it back to 20 mg per day. Return for worsening of symptoms. Follow-up with your [facility] - Post Discharge Activity
[2017-05-09 08:12] VITALS: BP 150/92; PULSE 67
== END 2017-05-09 08:11 | disposition home or self-care (01) ==
LOC: JER 06:53
PROC: 3E0F7GC Introduction of Other Therapeutic Substance into Respiratory Tract, Via Natural or Artificial Opening (ICD-10-PCS; principal; 2017-05-09)
DX: J45.901 Unspecified asthma with (acute) exacerbation (principal); F31.9 Bipolar disorder, unspecified
CPT/HCPCS: 99282-25

== ENCOUNTER 2017-05-22 07:00 | Emergency (ER) | payer MEDICARE ==
[2017-05-22 07:25] VITALS: TEMP 98.2; BMI 45.7
--- NOTE | 2017-05-22 07:41 | PDOC ---
History of Present Illness - General Stated Complaint: ASTHMA Time Seen by Provider: 05/22/17 07:21 History Source: Patient Exam Limitations: No Limitations - History of Present Illness Initial Comments: 05/22/17 07:35 She came to emergency department with acute onset of asthma exacerbation. Patient states woke up this morning used an albuterol nebulizer at home, took 20 mg of prednisone but was concerned as her breathing was worsening. Drove to the hospital for evaluation. Denies fever, denies phlegm production, no other illness Timing/Duration: reports: just prior to arrival, getting worse Severity: reports: mild, moderate Modifying Factors: improves with: albuterol nebulizer, coughing Associated Symptoms: reports: denies symptoms Aspirin Received prior to arrival: Yes: no aspirin today Past History - Travel Traveled outside of the country in the last 30 days: No Close contact w/someone who was outside of country & ill: No - Past Medical History Allergies/Adverse Reactions: Allergies Allergy/AdvReac Type Severity Reaction Status Date / Time surjit Allergy Mild Verified 05/09/17 07:08 Sulfa (Sulfonamide Allergy Rash Verified 05/09/17 07:08 Antibiotics) [Sulfa(Sulfonamide Antibiotics)] Home Medications: Ambulatory Orders Haloperidol Decanoate [Haldol Decanoate 50] 50 mg IM MONTHLY 12/14/11 Budesonide/Formeterol Fumarate [SYMBICORT 160/4.5mcg -] 1 inh PO BID #1 inhaler 02/01/16 predniSONE [Deltasone -] 20 mg PO ONCE 02/01/16 Albuterol Sulfate Inhaler - [Ventolin HFA Inhaler -] 2 puff IH Q4H PRN #1 inhaler 10/17/16 Diclofenac Sodium 75 mg PO BID #10 tablet. 02/21/17 predniSONE [Deltasone -] 20 mg PO ASDIR #30 tablet 05/09/17 Anemia: No Asthma: Yes Cancer: No Cardiac Disorders: No CVA: No COPD: No CHF: No DVT: No Dementia: No Diabetes: No GI Disorders: No Disorders: No HTN: No Hypercholesterolemia: Yes Liver Disease: No Psychiatric Problems: Yes (Bipolar) Seizures: No Thyroid Disease: No - Surgical History Abdominal Surgery: No Appendectomy: No Cardiac Surgery: No Cholecystectomy: No Lung Surgery: No Neurologic Surgery: No Orthopedic Surgery: No - Immunization History Immunization Up to Date: Yes - Suicide/Smoking/Psychosocial Hx Smoking Status: No Smoking History: Never smoked Have you smoked in the past 12 months: No Number of Cigarettes Smoked Daily: 0 Cigars Per Day: 0 Hx Alcohol Use: No Drug/Substance Use Hx: No Substance Use Type: None Hx Substance Use Treatment: No Respiratory Specific PMHX - Complaint Specific PMHX Angina: No Bronchitis: Yes Pneumonia: No Pulmonary Embolus: No TB (Tuberculosis): No Review of Systems - Review of Systems Able to Perform ROS?: Yes Is the patient limited Mongolian proficient: Yes Constitutional: Yes: Symptoms Reported, See HPI, Malaise. No: Fever HEENTM: Yes: See HPI. No: Symptoms Reported Respiratory: Yes: Symptoms reported, See HPI, Cough, Orthopnea, Wheezing Cardiac (ROS): No: Symptoms Reported Neurological: Yes: See HPI. No: Symptoms reported, Headache *Physical Exam - Vital Signs Last Vital Signs Temp Pulse Resp BP Pulse Ox 98.2 F 88 16 119/74 98 05/22/17 07:23 05/22/17 07:23 05/22/17 07:23 05/22/17 07:05/22/17 07:23 - Physical Exam General Appearance: Yes: Nourished, Appropriately Dressed. No: Apparent Distress, Mild Distress HEENT: positive: EOMI, LISA, Normal ENT Inspection, TMs Normal Neck: positive: Supple, Lymphadenopathy (R), Lymphadenopathy (L) (congested) Respiratory/Chest: positive: Lungs Clear, Normal Breath Sounds. negative: Wheezing Cardiovascular: positive: Regular Rhythm Gastrointestinal/Abdominal: positive: Soft. 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 Patient feels well and ready for discharge *DC/Admit/Observation/Transfer Diagnosis at time of Disposition: Asthma exacerbation Qualifiers: Asthma severity: mild Asthma persistence: intermittent Qualified Code(s): J45.21 - Mild intermittent asthma with (acute) exacerbation - Discharge Dispostion Disposition: HOME Condition at time of disposition: Stable Admit: No - Referrals Referrals: Brittney Hinkle [Primary Care Provider] - - Patient Instructions Printed Discharge Instructions: DI for Asthma -- Adult Additional Instructions: Rest, drink lots of fluids: Teas, water, soups, Pedialyte Saltwater gargles Steamy showers/seem to face break up mucus Avoid contact with others until fevers and cough resolved Lots of handwashing and good hygiene Continue [id number] medications for symptomatic relief Tylenol or Motrin for fever and pain Continue albuterol nebulizers every 4-6 hours for the next 2 days then as needed for continued cough Prednisone as directed until completed Followup with private physician in one to 2 days Return to emergency department / pediatric hospital for worsened symptoms, fevers, dehydration - Post Discharge Activity
[2017-05-22 08:05] VITALS: BP 117/77; PULSE 90
== END 2017-05-22 07:41 | disposition home or self-care (01) ==
LOC: JER 07:00
DX: J45.21 Mild intermittent asthma with (acute) exacerbation (principal); E78.00 Pure hypercholesterolemia, unspecified; F31.9 Bipolar disorder, unspecified
CPT/HCPCS: 99282-25

== ENCOUNTER 2017-08-12 01:29 | Emergency (ER) | payer MEDICARE ==
[2017-08-12 03:00] VITALS: BP 122/86; PULSE 81; TEMP 97.8; BMI 45.7
--- NOTE | 2017-08-12 03:29 | PDOC ---
History of Present Illness - General Chief Complaint: Shortness of Breath Stated Complaint: SOB Time Seen by Provider: 08/12/17 03:29 Past History - Past Medical History Allergies/Adverse Reactions: Allergies Allergy/AdvReac Type Severity Reaction Status Date / Time surjit Allergy Mild Verified 08/12/17 03:00 Sulfa (Sulfonamide Allergy Rash Verified 08/12/17 03:00 Antibiotics) [Sulfa(Sulfonamide Antibiotics)] Home Medications: Ambulatory Orders Haloperidol [Haldol -] 5 mg PO DAILY 08/12/17 Anemia: No Asthma: Yes Cancer: No Cardiac Disorders: No CVA: No COPD: No CHF: No DVT: No Dementia: No Diabetes: No GI Disorders: No Disorders: No HTN: No Hypercholesterolemia: Yes Liver Disease: No Psychiatric Problems: Yes (Bipolar) Seizures: No Thyroid Disease: No - Surgical History Abdominal Surgery: No Appendectomy: No Cardiac Surgery: No Cholecystectomy: No Lung Surgery: No Neurologic Surgery: No Orthopedic Surgery: No - Immunization History Immunization Up to Date: Yes - Suicide/Smoking/Psychosocial Hx Smoking Status: No Smoking History: Never smoked Have you smoked in the past 12 months: No Number of Cigarettes Smoked Daily: 0 Cigars Per Day: 0 Information on smoking cessation initiated: No Hx Alcohol Use: No Drug/Substance Use Hx: No Substance Use Type: None Hx Substance Use Treatment: No *Physical Exam - Vital Signs Last Vital Signs Temp Pulse Resp BP Pulse Ox 97.8 F 81 18 122/86 98 08/12/17 02:53 08/12/17 02:53 08/12/17 02:53 08/12/17 02:53 08/12/17 02:53 Medical Decision Making - Medical Decision Making 08/12/17 23:15 PT [facility] *DC/Admit/Observation/Transfer Diagnosis at time of Disposition: Asthma - Discharge Dispostion Disposition: LEFT BEFORE MED JON [facility]TT[facility] Condition at time of disposition: Fair - Referrals Referrals: Brittney Hinkle [Primary Care Provider] - - Patient Instructions - Post Discharge Activity
== END 2017-08-12 04:20 | disposition left against medical advice (07) ==
LOC: JER 01:29
DX: Z53.21 Procedure and treatment not carried out due to patient leaving prior to being seen by health care provider (principal)
CPT/HCPCS: 99281-25

== ENCOUNTER 2017-10-07 00:50 | Emergency (ER) | payer MEDICARE, OTHER ==
[2017-10-07] MEDS ORDERED: ALBUTEROL SO4 2.5/IPRATROPIUM 0.5 INH SOL 3 ML VIAL.NEB. NEB ONE ×2 (01:16→01:22)
[2017-10-07 01:22] VITALS: TEMP 98.2; BMI 45.7
[2017-10-07] MEDS ORDERED: LACTULOSE 20 GM/30 ML UDC (FOR ORAL USE ONLY) PO ONE (01:42)
[2017-10-07] MEDS ORDERED: LACTULOSE 20 GM/30 ML UDC (FOR ORAL USE ONLY) ONE (01:53)
--- NOTE | 2017-10-07 02:06 | PDOC ---
History of Present Illness - General History Source: Patient Exam Limitations: No Limitations - History of Present Illness Initial Comments: 10/07/17 02:39 The patient is a 51 year old woman with a significant past medical history of asthma and bipolar disorder, diabetes, and HTN, who presents to the ED for evaluation of asthma exacerbation. The patient reports cleaning around her house with bleach and eating shortly after when her shortness of breath developed. Pt reports associated symptoms of frontal headache and a 2 day history of constipation. The patient denies chest pain,fever, chills, nausea, and vomiting. Allergies: Sulfa, [place]. Social History: Non smoker. Denies alcohol or drug use.Surgical History: None reported. PCP: Dr. Hinkle <Tyrone Raman - Last Filed: 10/07/17 02:39> <Babs Welsh - Last Filed: 10/07/17 20:58> - General Chief Complaint: Asthma Stated Complaint: ASTHMA Time Seen by Provider: 10/07/17 01:14 Past History <Tyrone Raman - Last Filed: 10/07/17 02:39> - Past Medical History Anemia: No Asthma: Yes Cancer: No Cardiac Disorders: No CVA: No COPD: No CHF: No DVT: No Dementia: No Diabetes: No GI Disorders: No Disorders: No HTN: No Hypercholesterolemia: Yes Liver Disease: No Psychiatric Problems: Yes (Bipolar) Seizures: No Thyroid Disease: No - Surgical History Abdominal Surgery: No Appendectomy: No Cardiac Surgery: No Cholecystectomy: No Lung Surgery: No Neurologic Surgery: No Orthopedic Surgery: No - Immunization History Immunization Up to Date: Yes - Suicide/Smoking/Psychosocial Hx Smoking Status: No Smoking History: Never smoked Have you smoked in the past 12 months: No Number of Cigarettes Smoked Daily: 0 Cigars Per Day: 0 Information on smoking cessation initiated: No Hx Alcohol Use: No Drug/Substance Use Hx: No Substance Use Type: None Hx Substance Use Treatment: No <Babs Welsh - Last Filed: 10/07/17 20:58> - Past Medical History Allergies/Adverse Reactions: Allergies Allergy/AdvReac Type Severity Reaction Status Date / Time surjit Allergy Mild Verified 10/07/17 01:21 Sulfa (Sulfonamide Allergy Rash Verified 10/07/17 01:21 Antibiotics) [Sulfa(Sulfonamide Antibiotics)] Home Medications: Ambulatory Orders Haloperidol [Haldol -] 5 mg PO DAILY 08/12/17 Polyethylene Glycol 3350 [Miralax (For Daily Use) -] 17 gm PO DAILY #1 bottle Polyethylene Glycol 3350 [Miralax (For Daily Use) -] 17 gm PO ONCE #1 bottle Review of Systems - Review of Systems Able to Perform ROS?: Yes Comments:: GENERAL/CONSTITUTIONAL: No fever, no lethargy HEAD, EYES, EARS, NOSE AND THROAT: No eye discharge. No ear pain or discharge. No sore throat. CARDIOVASCULAR: No chest pain. RESPIRATORY: (+)Wheezing. No cough. GASTROINTESTINAL: (+)Constipation. No pain, nausea, vomiting, or diarrhea. GENITOURINARY: No dysuria, no change in urine output MUSCULOSKELETAL: No joint pain. No neck or back pain. SKIN: No rash NEUROLOGIC: (+)headache. No loss of consciousness, irritability. ENDOCRINE: No increased thirst. No abnormal weight change. ALLERGIC/IMMUNOLOGIC: No hives or skin allergy. <Tyrone Raman - Last Filed: 10/07/17 02:39> *Physical Exam - Vital Signs Last Vital Signs Temp Pulse Resp BP Pulse Ox 98.2 F 89 20 126/78 98 10/07/17 01:21 10/07/17 01:21 10/07/17 01:21 10/07/17 01:21 10/07/17 01:21 - Physical Exam Comments: GENERAL: Afebrile. Awake, alert, and appropriately interactive EYES: PERRLA, clear conjunctiva NOSE: Nose is clear without discharge EARS: EACs and TMs are normal THROAT: Moist mucosa, oropharynx is clear without erythema or exudates, NECK: Supple, no adenopathy, no meningismus CHEST: (+)Patchy wheezing. Lungs are clear without crackles, or wheezes HEART: Regular rhythm, normal S1 and S2, no murmurs ABDOMEN: Soft and nontender with normal bowel sounds, no organomegaly, no mass, no rebound, no guarding EXTREMITIES: Normal NEURO: Behavior normal for age, normal cranial nerves, normal tone SKIN: Unremarkable, no rash, no swelling, no bruising, no signs of injury <Tyrone Raman - Last Filed: 10/07/17 02:39> - Vital Signs Last Vital Signs Temp Pulse Resp BP Pulse Ox 98.2 F 89 20 126/78 98 10/07/17 01:21 10/07/17 01:21 10/07/17 01:21 10/07/17 01:21 10/07/17 01:21 <Babs Welsh - Last Filed: 10/07/17 20:58> ED Treatment Course - Medications Given in the ED: ED Medications Discontinued Medications Generic Name Dose Route Start Last Admin Trade Name Freq PRN Reason Stop Dose Admin Albuterol/Ipratropium 1 amp 10/07/17 01:16 10/07/17 01:29 Duoneb - NEB 10/07/17 01:17 1 amp ONCE ONE Administration Lactulose 20 gm 10/07/17 01:42 10/07/17 01:50 Cephulac (Oral Use) PO 10/07/17 01:43 20 gm ONCE ONE Administration <Tyrone Raman - Last Filed: 10/07/17 02:39> - Medications Given in the ED: ED Medications Discontinued Medications Generic Name Dose Route Start Last Admin Trade Name Freq PRN Reason Stop Dose Admin Albuterol/Ipratropium 1 amp 10/07/17 01:16 10/07/17 01:29 Duoneb - NEB 10/07/17 01:17 1 amp ONCE ONE Administration Lactulose 20 gm 10/07/17 01:42 10/07/17 01:50 Cephulac (Oral Use) PO 10/07/17 01:43 20 gm ONCE ONE Administration <Babs Welsh - Last Filed: 10/07/17 20:58> Medical Decision Making - Medical Decision Making 10/07/17 20:56 Pt was cleaning her grandma's home with bleach adn now has exacerbation of asthma. Improved with treatment. She also has incidental constipation. Improved with asthma meds. <Babs Welsh - Last Filed: 10/07/17 20:58> *DC/Admit/Observation/Transfer - Attestations Scribe Attestion: Documentation prepared by Tyrone Raman, acting as medical coding technician for Babs Welsh MD. <Tyrone Raman - Last Filed: 10/07/17 02:39> - Discharge Dispostion Decision to Admit order: No <Babs Welsh - Last Filed: 10/07/17 20:58> Diagnosis at time of Disposition: Asthma exacerbation, Constipated - Discharge Dispostion Disposition: HOME Condition at time of disposition: Improved - Prescriptions Prescriptions: Polyethylene Glycol 3350 [Miralax (For Daily Use) -] 17 gm PO ONCE #1 bottle Polyethylene Glycol 3350 [Miralax (For Daily Use) -] 17 gm PO DAILY #1 bottle - Patient Instructions Printed Discharge Instructions: Asthma -- Adult, Increased Dietary Fiber May Improve Constipation Conditions With Pelvic Iglesia
[2017-10-07 02:40] VITALS: BP 124/71; PULSE 67
== END 2017-10-07 02:20 | disposition home or self-care (01) ==
LOC: JER 00:50
PROC: 3E0F7GC Introduction of Other Therapeutic Substance into Respiratory Tract, Via Natural or Artificial Opening (ICD-10-PCS; principal; 2017-10-07)
DX: J45.901 Unspecified asthma with (acute) exacerbation (principal); K59.00 Constipation, unspecified
CPT/HCPCS: 94640; 99281-25; J7620

== ENCOUNTER 2017-10-08 03:04 | Emergency (ER) | payer OTHER ==
--- NOTE | 2017-10-08 03:52 | PDOC ---
History of Present Illness - General Stated Complaint: ASTHMA/STOMACH PAIN Time Seen by Provider: 10/08/17 03:52 Past History - Past Medical History Allergies/Adverse Reactions: Allergies Allergy/AdvReac Type Severity Reaction Status Date / Time surjit Allergy Mild Verified 10/07/17 01:21 Sulfa (Sulfonamide Allergy Rash Verified 10/07/17 01:21 Antibiotics) [Sulfa(Sulfonamide Antibiotics)] Home Medications: Ambulatory Orders Haloperidol [Haldol -] 5 mg PO DAILY 08/12/17 Polyethylene Glycol 3350 [Miralax (For Daily Use) -] 17 gm PO DAILY #1 bottle Polyethylene Glycol 3350 [Miralax (For Daily Use) -] 17 gm PO ONCE #1 bottle Anemia: No Asthma: Yes Cancer: No Cardiac Disorders: No CVA: No COPD: No CHF: No DVT: No Dementia: No Diabetes: No GI Disorders: No Disorders: No HTN: No Hypercholesterolemia: Yes Liver Disease: No Psychiatric Problems: Yes (Bipolar) Seizures: No Thyroid Disease: No - Surgical History Abdominal Surgery: No Appendectomy: No Cardiac Surgery: No Cholecystectomy: No Lung Surgery: No Neurologic Surgery: No Orthopedic Surgery: No - Immunization History Immunization Up to Date: Yes - Suicide/Smoking/Psychosocial Hx Smoking Status: No Smoking History: Never smoked Have you smoked in the past 12 months: No Number of Cigarettes Smoked Daily: 0 Cigars Per Day: 0 Hx Alcohol Use: No Drug/Substance Use Hx: No Substance Use Type: None Hx Substance Use Treatment: No *DC/Admit/Observation/Transfer - Referrals Referrals: Brittney Hinkle [Primary Care Provider] - - Patient Instructions - Post Discharge Activity
[2017-10-08 04:03] VITALS: BP 141/78; PULSE 79; TEMP 98.1; BMI 45.7
--- NOTE | 2017-10-08 04:12 | PDOC ---
History of Present Illness - General Chief Complaint: Asthma Stated Complaint: ASTHMA/STOMACH PAIN Time Seen by Provider: 10/08/17 03:52 History Source: Patient Exam Limitations: No Limitations - History of Present Illness Initial Comments: 10/08/17 04:05 Patient is a 51 year old female with h/o asthma, bipolar disorder c/o constipation x 4 days and headache since yesterday. Patient was seen in the ED yesterday for asthma symptoms and was also treated for the constipation with lactulose but states it did not work. Patient denies abd pain, asthma symptoms today. PMD: Dr. Arin WASHINGTONX: neg etoh, drug, cig ALL: sulfa GENERAL/CONSTITUTIONAL: [No fever or chills. No weakness. No weight change.] HEAD, EYES, EARS, NOSE AND THROAT: [No change in vision. No ear pain or discharge. No sore throat.] CARDIOVASCULAR: [No chest pain or shortness of breath.] RESPIRATORY: [No cough,(+) wheezing, or hemoptysis.] GASTROINTESTINAL: [No nausea, vomiting, diarrhea or constipation. No rectal bleeding.] GENITOURINARY: [No dysuria, frequency, or change in urination.] MUSCULOSKELETAL: [No joint or muscle swelling or pain. No neck or back pain.] SKIN AND BREASTS: [No rash or easy bruising.] NEUROLOGIC: [No headache, vertigo, loss of consciousness, or loss of sensation.] PSYCHIATRIC: (+) depression or anxiety.] ENDOCRINE: [No increased thirst. No abnormal weight change.] HEMATOLOGIC/LYMPHATIC: [No anemia, easy bleeding, or history of blood clots.] ALLERGIC/IMMUNOLOGIC: [No hives or skin allergy. No latex allergy.] GENERAL: [The patient is awake, alert, and fully oriented, in no acute distress. ] HEAD: [Normal with no signs of trauma.] EYES: [Pupils equal, round and reactive to light, extraocular movements intact, sclera anicteric, conjunctiva clear.] ENT: [Ears normal, nares patent, oropharynx clear without exudates. Moist mucous membranes.] NECK: [Normal range of motion, supple without lymphadenopathy, JVD, or masses.] LUNGS: [Breath sounds equal, clear to auscultation bilaterally. No wheezes, and no crackles.] HEART: [Regular rate and rhythm, normal S1 and S2 without murmur, rub.] ABDOMEN: [Soft, nontender, normoactive bowel sounds. No guarding, no rebound. No masses.] EXTREMITIES: [Normal range of motion, no edema. No clubbing or cyanosis. No cords, erythema, or tenderness.] NEUROLOGICAL: [Cranial nerves II through XII grossly intact. Normal speech, normal gait.] PSYCH: [Normal mood, normal affect.] SKIN: [Warm, Dry, normal turgor, no rashes or lesions noted.] Past History - Past Medical History Allergies/Adverse Reactions: Allergies Allergy/AdvReac Type Severity Reaction Status Date / Time surjit Allergy Mild Verified 10/08/17 04:00 Sulfa (Sulfonamide Allergy Rash Verified 10/08/17 04:00 Antibiotics) [Sulfa(Sulfonamide Antibiotics)] Home Medications: Ambulatory Orders Haloperidol [Haldol -] 5 mg PO DAILY 08/12/17 Polyethylene Glycol 3350 [Miralax (For Daily Use) -] 17 gm PO DAILY #1 bottle Polyethylene Glycol 3350 [Miralax (For Daily Use) -] 17 gm PO ONCE #1 bottle Polyethylene Glycol 3350 [Miralax (For Daily Use) -] 17 gm PO DAILY #1 bottle Anemia: No Asthma: Yes Cancer: No Cardiac Disorders: No CVA: No COPD: No CHF: No DVT: No Dementia: No Diabetes: No GI Disorders: No Disorders: No HTN: No Hypercholesterolemia: Yes Liver Disease: No Psychiatric Problems: Yes (Bipolar) Seizures: No Thyroid Disease: No - Surgical History Abdominal Surgery: No Appendectomy: No Cardiac Surgery: No Cholecystectomy: No Lung Surgery: No Neurologic Surgery: No Orthopedic Surgery: No - Immunization History Immunization Up to Date: Yes - Suicide/Smoking/Psychosocial Hx Smoking Status: No Smoking History: Never smoked Have you smoked in the past 12 months: No Number of Cigarettes Smoked Daily: 0 Cigars Per Day: 0 Information on smoking cessation initiated: No Hx Alcohol Use: No Drug/Substance Use Hx: No Substance Use Type: None Hx Substance Use Treatment: No *Physical Exam - Vital Signs Last Vital Signs Temp Pulse Resp BP Pulse Ox 98.1 F 79 22 141/78 96 10/08/17 03:15 10/08/17 03:15 10/08/17 03:15 10/08/17 03:15 10/08/17 03:15 Medical Decision Making - Medical Decision Making 10/08/17 04:05 Patient is a 51 year old female with h/o asthma, bipolar disorder c/o constipation x 4 days and headache since yesterday. will treat KEARNEY with tylenol Miralax for constipation will discharge I discussed the physical exam findings, ancillary test results and final diagnoses with the patient. I answered all of the patient's questions. The patient was satisfied with the care received and felt comfortable with the discharge plan and treatment plan. The Patient agrees to follow up with the primary care physician within 24-72 hours. *DC/Admit/Observation/Transfer Diagnosis at time of Disposition: Constipated Qualifiers: Constipation type: unspecified constipation type Qualified Code(s): K59.00 - Constipation, unspecified Headache Qualifiers: Headache type: other headache syndrome Qualified Code(s): G44.89 - Other headache syndrome - Discharge Dispostion Disposition: HOME Condition at time of disposition: Stable - Prescriptions Prescriptions: Polyethylene Glycol 3350 [Miralax (For Daily Use) -] 17 gm PO DAILY #1 bottle - Referrals Referrals: Brittney Hinkle [Primary Care Provider] - - Patient Instructions Printed Discharge Instructions: DI for Constipation, DI for Headache - Post Discharge Activity
[2017-10-08] MEDS ORDERED: POLYETHYLENE GLYCOL 3350 255 GM BTL PO ONE (04:13)
[2017-10-08] MEDS ORDERED: ACETAMINOPHEN 500 MG TABLET (FP) PO ONE (04:13)
== END 2017-10-08 05:05 | disposition home or self-care (01) ==
LOC: JER 03:04
DX: K59.00 Constipation, unspecified (principal); G44.89 Other headache syndrome; J45.909 Unspecified asthma, uncomplicated; R31.9 Hematuria, unspecified; Z88.2 Allergy status to sulfonamides
CPT/HCPCS: 99281-25

== ENCOUNTER 2017-10-13 11:21 | Emergency (ER) | payer OTHER ==
[2017-10-13] MEDS ORDERED: ALBUTEROL SO4 2.5/IPRATROPIUM 0.5 INH SOL 3 ML VIAL.NEB. NEB ONE ×2 (11:28→11:31)
[2017-10-13] MEDS ORDERED: predniSONE 20 MG TABLET (UD) PO ONE (11:28)
[2017-10-13] MEDS ORDERED: predniSONE 20 MG TABLET (UD) ONE (11:31)
[2017-10-13 11:34] VITALS: BP 130/75; PULSE 78; TEMP 98.5; BMI 45.7
--- NOTE | 2017-10-13 11:36 | PDOC ---
History of Present Illness - General History Source: Patient Exam Limitations: No Limitations - History of Present Illness Initial Comments: 10/13/17 11:38 The patient is a 51 year old female, with a significant past medical history of asthma and bipolar disorder, who presents to the emergency department with persistent wheezing since eloping from the ED yesterday during evaluation for similar complaint. She denies chest pain, headache and dizziness. She denies fever, chills, nausea , vomit, diarrhea and constipation. She denies dysuria, frequency, urgency and hematuria. Allergies: Penicillins Social Hx: Denies tobacco, ETOH and illicit drug use PCP: Dr. Hinkle <Marilee Ro - Last Filed: 10/13/17 11:37> - General History Source: Patient, Old Records Exam Limitations: No Limitations <Aly Yeh - Last Filed: 10/13/17 11:45> - General Stated Complaint: ASTHMA Time Seen by Provider: 10/13/17 11:27 Past History <Marilee Ro - Last Filed: 10/13/17 11:37> - Past Medical History Anemia: No Asthma: Yes Cancer: No Cardiac Disorders: No CVA: No COPD: No CHF: No DVT: No Dementia: No Diabetes: No GI Disorders: No Disorders: No HTN: No Hypercholesterolemia: Yes Liver Disease: No Psychiatric Problems: Yes (Bipolar) Seizures: No Thyroid Disease: No - Surgical History Abdominal Surgery: No Appendectomy: No Cardiac Surgery: No Cholecystectomy: No Lung Surgery: No Neurologic Surgery: No Orthopedic Surgery: No - Immunization History Immunization Up to Date: Yes - Suicide/Smoking/Psychosocial Hx Smoking Status: No Smoking History: Never smoked Have you smoked in the past 12 months: No Number of Cigarettes Smoked Daily: 0 Cigars Per Day: 0 Hx Alcohol Use: No Drug/Substance Use Hx: No Substance Use Type: None Hx Substance Use Treatment: No <Aly Yeh - Last Filed: 10/13/17 11:45> - Past Medical History Allergies/Adverse Reactions: Allergies Allergy/AdvReac Type Severity Reaction Status Date / Time surjit Allergy Mild Verified 10/13/17 11:31 Sulfa (Sulfonamide Allergy Rash Verified 10/13/17 11:31 Antibiotics) [Sulfa(Sulfonamide Antibiotics)] Home Medications: Ambulatory Orders Haloperidol [Haldol -] 5 mg PO DAILY 08/12/17 Polyethylene Glycol 3350 [Miralax (For Daily Use) -] 17 gm PO DAILY #1 bottle Polyethylene Glycol 3350 [Miralax (For Daily Use) -] 17 gm PO ONCE #1 bottle Polyethylene Glycol 3350 [Miralax (For Daily Use) -] 17 gm PO DAILY #1 bottle Prednisone [Deltasone] 60 mg PO DAILY #6 tablet 10/13/17 Review of Systems - Review of Systems Able to Perform ROS?: Yes Comments:: 10/13/17 11:38 GENERAL/CONSTITUTIONAL: No fever or chills. No weakness. HEAD, EYES, EARS, NOSE AND THROAT: No change in vision. No ear pain or discharge. No sore throat. CARDIOVASCULAR: No chest pain or shortness of breath. RESPIRATORY:(+) wheezing, No cough, or hemoptysis. GASTROINTESTINAL: No nausea, vomiting, diarrhea or constipation. GENITOURINARY: No dysuria, frequency, or change in urination. MUSCULOSKELETAL: No joint or muscle swelling or pain. No neck or back pain. SKIN: No rash NEUROLOGIC: No headache, vertigo, loss of consciousness, or change in strength/ sensation. ENDOCRINE: No increased thirst. No abnormal weight change. HEMATOLOGIC/LYMPHATIC: No anemia, easy bleeding, or history of blood clots. ALLERGIC/IMMUNOLOGIC: No hives or skin allergy. <Marilee Ro - Last Filed: 10/13/17 11:37> *Physical Exam - Vital Signs Last Vital Signs Temp Pulse Resp BP Pulse Ox 98.5 F 78 16 130/75 97 10/13/17 11:31 10/13/17 11:31 10/13/17 11:31 10/13/17 11:31 10/13/17 11:31 - Physical Exam Comments: 10/13/17 11:38 GENERAL: Comfortable appearing. Awake, alert, and fully oriented, in no acute distress HEAD: No signs of trauma EYES: PERRLA, EOMI, sclera anicteric, conjunctiva clear ENT: Auricles normal inspection, hearing grossly normal, nares patent, oropharynx clear without exudates. Moist mucosa NECK: Normal ROM, supple, no lymphadenopathy, JVD, or masses LUNGS: (+) Occasional expiratory wheezing bilaterally. Breath sounds equal, No crackles HEART: Regular rate and rhythm, normal S1 and S2, no murmurs, rubs or gallops ABDOMEN: Soft, nontender, normoactive bowel sounds. No guarding, no rebound. No masses EXTREMITIES: Normal range of motion, no edema. No clubbing or cyanosis. No cords, erythema, or tenderness NEUROLOGICAL: Cranial nerves II-XII intact. Normal speech, normal gait. Sensation intact in upper and lower extremities. 5/5 motor strength in upper and lower extremities. No pronator drift. Finger to nose intact. Rapid alternations intact. SKIN: Warm, Dry, normal turgor, no rashes or lesions noted. <Marilee Ro - Last Filed: 10/13/17 11:37> Medical Decision Making - Medical Decision Making 10/13/17 11:34 A portion of this note was written by my scribe, under my supervision. 51 year old female c/ hx of bipolar disorder, asthma p/w asthma attack. The patient was seen by Dr. Pierce and Dr. Oneil yesterday. Pt was being treated for asthma but eloped. Came in today for persistence of wheezing. Denies fevers, chills, cough, difficulty breathing. Reports some wheezing. Denies chest pain. Pt with occasional wheezing. Otherwise well-appearing and breathing comfortably. Pt well known to me from prior visits. Will provide duoneb and prednisone and reassess. 10/13/17 11:43 Pt reports feeling significantly better. Will d/c her home with strict return precautions. Pt ambulatory without difficulty breathing. <Aly Yeh - Last Filed: 10/13/17 11:45> *DC/Admit/Observation/Transfer - Attestations Scribe Attestion: 10/13/17 11:39 Documentation prepared by Marilee Ro, acting as medical insurance biller for Aly Yeh MD. <Marilee Ro - Last Filed: 10/13/17 11:37> - Discharge Dispostion Decision to Admit order: No <Aly Yeh - Last Filed: 10/13/17 11:45> Diagnosis at time of Disposition: Asthma exacerbation Qualifiers: Asthma severity: unspecified severity Asthma persistence: unspecified Qualified Code(s): J45.901 - Unspecified asthma with (acute) exacerbation - Discharge Dispostion Disposition: HOME Condition at time of disposition: Good - Prescriptions Prescriptions: Prednisone [Deltasone] 60 mg PO DAILY #6 tablet - Referrals Referrals: Reinier Zhang MD [Staff Physician] - - Patient Instructions Printed Discharge Instructions: Asthma -- Adult Additional Instructions: Please use your inhaler at home. Continue to take your prednisone. Follow up with your doctor.
== END 2017-10-13 11:50 | disposition home or self-care (01) ==
LOC: JER 11:21
PROC: 3E0F7GC Introduction of Other Therapeutic Substance into Respiratory Tract, Via Natural or Artificial Opening (ICD-10-PCS; principal; 2017-10-13)
DX: J45.901 Unspecified asthma with (acute) exacerbation (principal); F31.9 Bipolar disorder, unspecified
CPT/HCPCS: 99281-25; J7620

== ENCOUNTER 2017-10-14 00:08 | Emergency (ER) | payer OTHER ==
[2017-10-14 00:17] VITALS: BP 135/80; PULSE 85; TEMP 98.3; BMI 45.7
== END 2017-10-14 00:40 | disposition left against medical advice (07) ==
LOC: JER 00:08
DX: Z53.21 Procedure and treatment not carried out due to patient leaving prior to being seen by health care provider (principal)
CPT/HCPCS: 99281-25

== ENCOUNTER 2017-10-14 04:00 | Emergency (ER) | payer OTHER ==
[2017-10-14] MEDS ORDERED: ACETAMINOPHEN 325 MG TABLET (FP) PO ONE (04:21)
--- NOTE | 2017-10-14 04:22 | PDOC ---
History of Present Illness - General Stated Complaint: ASTHMA ATTACK Time Seen by Provider: 10/14/17 04:02 History Source: Patient Exam Limitations: No Limitations - History of Present Illness Initial Comments: 10/14/17 04:27 HISTORY OF PRESENT ILLNESS: This is a 51-year-old woman past medical history of bipolar disorder and asthma who presents emergency Department with headaches for 3 days intermittently. Patient states she takes Tylenol which completely relieved the headache for 4-5 hours when the headache returns. She is concerned that the headache continues to return. Patient took Tylenol prior to arriving in the emergency department currently has pain 3/10. Patient denies any blurry vision, dizziness, nausea, vomiting. Patient is also requesting prednisone to assist with her asthma. No recent travel or sick contacts. PAST MEDICAL HISTORY: asthma and bipo SURGICAL HISTORY: Denies ALLERGIES: sulfa drugs and mangoes REVIEW OF SYSTEMS General/Constitutional: Denies fever or chills. Denies weakness, weight change. HEENT: Denies change in vision. Denies ear pain or discharge. Denies sore throat. Cardiovascular: Denies chest pain or shortness of breath. Respiratory: Denies cough, wheezing, or hemoptysis. Gastrointestinal: Denies nausea, vomiting, diarrhea or constipation. Denies rectal bleeding. Genitourinary: Denies dysuria, frequency, or change in urination. Musculoskeletal: Denies joint or muscle swelling or pain. Denies neck or back pain. Skin and breasts: Denies rash or easy bruising. Neurologic: Frontal headache. Denies vertigo, loss of consciousness, or loss of sensation. Psychiatric: Denies depression or anxiety. Endocrine: Denies increased thirst. Denies abnormal weight change. Hematologic/Lymphatic: Denies anemia, easy bleeding, or history of blood clots. Allergic/Immunologic: Denies hives or skin allergy. Denies latex allergy. PHYSICAL EXAM General Appearance: Well-appearing, appropriately dressed. No apparent distress , no intoxication. HEENT: EOMI, PERRLA, normal ENT inspection, normal voice, TMs normal, pharynx normal. No conjunctival pallor. No photophobia, scleral icterus. Neck: Supple. Trachea midline. No tenderness, rigidity, carotid bruit, stridor , lymphadenopathy, or thyromegaly. Respiratory/Chest: Lungs CTAB. No shortness of breath, chest tenderness, respiratory distress, accessory muscle use. No crackles, rales, rhonchi, stridor , wheezing, dullness Cardiovascular: RRR. S1, S2. No JVD, murmur, bradycardia, tachycardia. Vascular Pulses: Dorsalis-Pedis (R): 2+, Dorsalis-Pedis (L): 2+ Gastrointestinal/Abdominal: Normal bowel sounds. Abdomen soft, non-distended. No tenderness or rebound tenderness. No organomegaly, pulsatile mass, guarding , hernia, hepatomegaly, splenomegaly. Lymphatic: No adenopathy, tenderness. Musculoskeletal/Extremities: Normal inspection. FROM of all extremities, normal capillary refill. Pelvis Stable. No CVA tenderness. No tenderness to extremities, pedal edema, swelling, erythema or deformity. Integumentary: Appropriate color, dry, warm. No cyanosis, erythema, jaundice or rash Neurologic: glaze maker II-XII intact. Fully oriented, alert. Appropriate mood/affect. Motor strength 5/5. No appreciable EOM palsy, facial droop or sensory deficit. 10/14/17 04:34 Past History - Past Medical History Allergies/Adverse Reactions: Allergies Allergy/AdvReac Type Severity Reaction Status Date / Time surjit Allergy Mild Verified 10/14/17 04:22 Sulfa (Sulfonamide Allergy Rash Verified 10/14/17 04:22 Antibiotics) [Sulfa(Sulfonamide Antibiotics)] Home Medications: Ambulatory Orders Haloperidol [Haldol -] 5 mg PO DAILY 08/12/17 Prednisone [Deltasone] 60 mg PO DAILY #6 tablet 10/13/17 Anemia: No Asthma: Yes Cancer: No Cardiac Disorders: No CVA: No COPD: No CHF: No DVT: No Dementia: No Diabetes: No GI Disorders: No Disorders: No HTN: No Hypercholesterolemia: Yes Liver Disease: No Psychiatric Problems: Yes (Bipolar) Seizures: No Thyroid Disease: No - Surgical History Abdominal Surgery: No Appendectomy: No Cardiac Surgery: No Cholecystectomy: No Lung Surgery: No Neurologic Surgery: No Orthopedic Surgery: No - Immunization History Immunization Up to Date: Yes - Suicide/Smoking/Psychosocial Hx Smoking Status: No Smoking History: Never smoked Have you smoked in the past 12 months: No Number of Cigarettes Smoked Daily: 0 Cigars Per Day: 0 Hx Alcohol Use: No Drug/Substance Use Hx: No Substance Use Type: None Hx Substance Use Treatment: No Respiratory Specific PMHX - Complaint Specific PMHX Angina: No Bronchitis: Yes Pneumonia: No Pulmonary Embolus: No TB (Tuberculosis): No Medical Decision Making - Medical Decision Making 10/14/17 04:31 A/P: 51-year-old woman with history of bipolar disorder and asthma with frontal headache for 3 days Current headache is 3/10 describes as a pressure PERRLA, EOMI Cranial nerves II through XII grossly intact Ambulatory with steady gait Able to perform rapid alternating movements without difficulty No sinus tenderness Lungs clear to auscultation bilaterally Speaking full sentences Patient was seen and evaluated here on 10/13 for asthma exacerbation. Patient was prescribed prednisone at that time was given a dose of steroids while in the emergency department. Patient denied headache at that time. Patient is ambulatory in the hallway speaking loudly with other patients. Motrin 600 mg, discharge I discussed the physical exam findings, ancillary test results and final diagnoses with the patient. I answered all of the patient's questions. The patient was satisfied with the care received and felt comfortable with the discharge plan and treatment plan. The patient will call their primary care physician within 24 hours to arrange follow-up and will return to the Emergency Department with any new, persistent or worsening symptoms. *DC/Admit/Observation/Transfer Diagnosis at time of Disposition: Headache Qualifiers: Headache type: unspecified Headache chronicity pattern: unspecified pattern Intractability: not intractable Qualified Code(s): R51 - Headache - Discharge Dispostion Disposition: HOME Condition at time of disposition: Stable Decision to Admit order: No - Referrals Referrals: Brittney Hinkle [Primary Care Provider] - - Patient Instructions Additional Instructions: Drink plenty of fluids. Take Tylenol or Motrin as needed for headaches. Keep a diary of all food to eat and activities performed prior to headaches starting. Make an appointment with your primary doctor for reevaluation within the next week. Return to emergency department for worsening headache, blurry vision, dizziness , nausea, vomiting or any other concerns. Thank you very much for for choosing us to provide emergent health care needs. - Post Discharge Activity
[2017-10-14 04:23] VITALS: BP 142/89; PULSE 88; TEMP 97.6; BMI 32.5
[2017-10-14] MEDS ORDERED: IBUPROFEN 600 MG TABLET (FP) PO ONE (04:27)
== END 2017-10-14 04:49 | disposition home or self-care (01) ==
LOC: JER 04:00
DX: R51 Headache (principal); F31.9 Bipolar disorder, unspecified; E78.00 Pure hypercholesterolemia, unspecified; J45.909 Unspecified asthma, uncomplicated
CPT/HCPCS: 99281-25

== ENCOUNTER 2017-10-18 07:09 | Emergency (ER) | payer OTHER ==
[2017-10-18 07:16] VITALS: BP 134/70; PULSE 71; TEMP 98.5; BMI 45.7
--- NOTE | 2017-10-18 08:00 | PDOC ---
History of Present Illness - General Chief Complaint: Asthma Stated Complaint: ASTHMA/HEADACHE Time Seen by Provider: 10/18/17 08:00 - History of Present Illness Initial Comments: 51yo F with PMH of bipolar disorder and asthma complaining of headache x 2 days. Patient is known to me from a previous visit. This morning around 9am, patient had an asthma attack. She took two breathing treatments [id number] and felt relief of her symptoms. Patient reports getting a frontal headache afterwards that she describes as 'throbbing' and rates 8/10. She took a Motrin 2 hours prior to arrival which offered some relief. She was last seen in this ED on 10/14 for similar complaint and went to [facility] yesterday for her asthma. Denies fever, chills, dizzinesss, vision changes, chest pain, or abdominal pain. 10/18/17 08:34 Past History - Past Medical History Allergies/Adverse Reactions: Allergies Allergy/AdvReac Type Severity Reaction Status Date / Time surjit Allergy Mild Verified 10/18/17 07:15 Sulfa (Sulfonamide Allergy Rash Verified 10/18/17 07:15 Antibiotics) [Sulfa(Sulfonamide Antibiotics)] Home Medications: Ambulatory Orders Haloperidol [Haldol -] 5 mg PO DAILY 08/12/17 Prednisone [Deltasone] 60 mg PO DAILY #6 tablet 10/13/17 Anemia: No Asthma: Yes Cancer: No Cardiac Disorders: No CVA: No COPD: No CHF: No DVT: No Dementia: No Diabetes: No GI Disorders: No Disorders: No HTN: No Hypercholesterolemia: Yes Liver Disease: No Psychiatric Problems: Yes (Bipolar) Seizures: No Thyroid Disease: No - Surgical History Abdominal Surgery: No Appendectomy: No Cardiac Surgery: No Cholecystectomy: No Lung Surgery: No Neurologic Surgery: No Orthopedic Surgery: No - Immunization History Immunization Up to Date: Yes - Suicide/Smoking/Psychosocial Hx Smoking Status: No Smoking History: Never smoked Have you smoked in the past 12 months: No Number of Cigarettes Smoked Daily: 0 Cigars Per Day: 0 Information on smoking cessation initiated: No Hx Alcohol Use: No Drug/Substance Use Hx: No Substance Use Type: None Hx Substance Use Treatment: No Review of Systems - Review of Systems Comments:: Constitutional: no fever, no chills Cardiovascular: no chest pain, no palpitations Respiratory: no cough, +shortness of breath Gastrointestinal: no abdominal pain, no nausea, no vomiting, no diarrhea, no constipation Genitourinary: no dysuria, no frequency Musculoskeletal: no myalgia, no arthralgia Skin: no rash, no itching Neurologic: +headache, no dizziness *Physical Exam - Vital Signs Last Vital Signs Temp Pulse Resp BP Pulse Ox 98.5 F 71 20 134/70 100 10/18/17 07:13 10/18/17 07:13 10/18/17 07:13 10/18/17 07:13 10/18/17 07:13 - Physical Exam Comments: General: Awake, alert, and fully oriented, in no acute distress Head: no signs of trauma Eyes: PERRL, EOMI, sclera anicteric ENT: Moist mucus membranes, Neck: Normal ROM, supple Lungs: Diffuse wheezes bilaterally Cardio: Regular rhythm, S1 and S2 present, no murmurs, rubs, or gallops Abdomen: Soft, nontender, normal bowel sounds Extremities: Normal range of motion, Distal pulses present. SKIN: Warm, Dry, normal turgor, no rashes or lesions noted Neurologic: Cranial nerves II through XII grossly intact. Normal speech Medical Decision Making - Medical Decision Making 51yo F with history of bipolar disorder and asthma complaining of headache. Bilateral diffuse wheezes. Ordered Tylenol 650 and 1 breathing treatment. Went to speak with patient but she was not located at [facility]. 10/18/17 09:03 No one has seen patient. Patient eloped. 10/18/17 09:38 *DC/Admit/Observation/Transfer Diagnosis at time of Disposition: Headache - Discharge Dispostion Disposition: ELOPED - Referrals Referrals: Brittney Hinkle [Primary Care Provider] - - Patient Instructions - Post Discharge Activity
[2017-10-18] MEDS ORDERED: ACETAMINOPHEN 325 MG TABLET (FP) PO ONE (08:19)
[2017-10-18] MEDS ORDERED: ALBUTEROL SO4 2.5/IPRATROPIUM 0.5 INH SOL 3 ML VIAL.NEB. NEB ONE ×2 (08:25→08:44)
[2017-10-18] MEDS ORDERED: ACETAMINOPHEN 325 MG TABLET (FP) ONE (08:44)
--- NOTE | 2017-10-18 09:42 | PDOC ---
Attending Attestation - Resident Resident Name: Dee Pierce - ED Attending Attestation I have performed the following: I have examined & evaluated the patient, The case was reviewed & discussed with the resident, I agree w/resident's findings & plan, Exceptions are as noted - HPI HPI: 10/18/17 09:41 Pt eloped prior to my evaluation.
== END 2017-10-18 10:07 | disposition left against medical advice (07) ==
LOC: JER 07:09
PROC: 3E0F7GC Introduction of Other Therapeutic Substance into Respiratory Tract, Via Natural or Artificial Opening (ICD-10-PCS; principal; 2017-10-18)
DX: R51 Headache (principal); J45.909 Unspecified asthma, uncomplicated; F31.9 Bipolar disorder, unspecified; Z88.2 Allergy status to sulfonamides; E78.00 Pure hypercholesterolemia, unspecified
CPT/HCPCS: 99281-25

== ENCOUNTER 2017-10-20 08:21 | Emergency (ER) | payer OTHER ==
[2017-10-20 08:43] VITALS: TEMP 97.2; BMI 42.9
--- NOTE | 2017-10-20 09:23 | PDOC ---
History of Present Illness - General History Source: Patient Exam Limitations: No Limitations - History of Present Illness Initial Comments: 10/20/17 10:11 The patient is a 52 year old female, with a significant past medical history of asthma and bipolar disorder, who presents to the emergency department with diffuse abdominal pain and diarrhea since last night. The patient reports she ate some [place] Islander food for dinner last night, and shortly after she developed lower abdominal pain and associated diarrhea. She reports her pain radiates from left to right and is a 7/10. She describes her pain as a soreness. She reports 4 episodes of soft stools yesterday, nonbloody, but denies any nausea, vomiting, constipation, melena or hematochezia. She reports mild left frontal headache, but denies any fever, chills, or dizziness. Patient reports she was recently on Amoxicillin for sore throat, and finished her last dose yesterday. Patient states she was able to tolerate a bagel this morning. She denies any dysuria, hematuria, frequency, urgency, vaginal discharge, or malodorous urine. She reports recent contact with her mother who has viral symptoms. She denies any recent travel. Patient is on daily Prednisone for asthma. Allergies: Sulfa(Sulfonamide antibiotics) Past Surgical History: None reported Social History: Non smoker. No ETOH or recreational drug use. PCP: Dr. Hinkle <Liliana Roca - Last Filed: 10/20/17 10:11> <Everardo Bullock - Last Filed: 10/20/17 11:55> - General Chief Complaint: Pain Stated Complaint: ABDOMINAL PAIN Time Seen by Provider: 10/20/17 08:43 Past History <Liliana Roca - Last Filed: 10/20/17 10:11> - Past Medical History Anemia: No Asthma: Yes Cancer: No Cardiac Disorders: No CVA: No COPD: No CHF: No DVT: No Dementia: No Diabetes: No GI Disorders: No Disorders: No HTN: No Hypercholesterolemia: Yes Liver Disease: No Psychiatric Problems: Yes (Bipolar) Seizures: No Thyroid Disease: No - Surgical History Abdominal Surgery: No Appendectomy: No Cardiac Surgery: No Cholecystectomy: No Lung Surgery: No Neurologic Surgery: No Orthopedic Surgery: No - Immunization History Immunization Up to Date: Yes - Suicide/Smoking/Psychosocial Hx Smoking Status: No Smoking History: Never smoked Have you smoked in the past 12 months: No Number of Cigarettes Smoked Daily: 0 Cigars Per Day: 0 Information on smoking cessation initiated: No Hx Alcohol Use: No Drug/Substance Use Hx: No Substance Use Type: None Hx Substance Use Treatment: No <Everardo Bullock - Last Filed: 10/20/17 11:55> - Past Medical History Allergies/Adverse Reactions: Allergies Allergy/AdvReac Type Severity Reaction Status Date / Time surjit Allergy Mild Verified 10/20/17 08:27 Sulfa (Sulfonamide Allergy Rash Verified 10/20/17 08:27 Antibiotics) [Sulfa(Sulfonamide Antibiotics)] Home Medications: Ambulatory Orders Fluticasone/Salmeterol [Advair 250-50 Diskus] 1 each IH BID 10/20/17 Review of Systems - Review of Systems Able to Perform ROS?: Yes Comments:: 10/20/17 10:12 CONSTITUTIONAL: No reported: Fever, Chills, Diaphoresis, Generalized Weakness, Malaise, Loss of Appetite HEENT: No reported: Rhinorrhea, Nasal Congestion, Throat Pain, Throat Swelling, Difficulty Swallowing, Mouth Swelling, Ear Pain, Eye Pain, Visual Changes CARDIOVASCULAR: No reported: Chest Pain, Syncope, Palpitations, Irregular Heart Rate, Lightheadedness, Peripheral Edema RESPIRATORY: No reported: Cough, Shortness of Breath, SOB with Exertion, Orthopnea, Wheezing , Stridor, Hemoptysis GASTROINTESTINAL: Reported : Abdominal pain, Diarrhea No reported: Abdominal Distension, Nausea, Vomiting, Constipation, Melena, Hematochezia GENITOURINARY: No reported: Dysuria, Frequency, Urgency, Hesitancy, Flank Pain, Genital Pain MUSCULOSKELETAL: No reported: Myalgia, Arthralgia, Joint Swelling, Back pain, Neck Pain SKIN: No reported: Rash, Itching, Pallor HEMATOLOGIC/IMMUNOLOGIC: No reported: Easy Bleeding, Easy Bruising, Lymphadenopathy, Frequent infections ENDOCRINE: No reported: Unexplained Weight Gain, Unexplained Weight Loss, Heat Intolerance , Cold Intolerance NEUROLOGIC: No reported: Headache, Focal Weakness, Paresthesias, Vertigo, Lightheadedness, Unsteady Gait, Seizure, Mental Status Changes, Incontinence PSYCHIATRIC: No reported: Anxiety, Depression <RocaLiliana aponte - Last Filed: 10/20/17 10:11> *Physical Exam - Vital Signs Last Vital Signs Temp Pulse Resp BP Pulse Ox 97.2 F L 80 16 129/85 100 10/20/17 08:37 10/20/17 08:37 10/20/17 08:37 10/20/17 08:37 10/20/17 08:37 - Physical Exam Comments: 10/20/17 10:12 GENERAL: The patient is awake, alert, and fully oriented, Nontoxic - in no acute distress. HEAD: Normocephalic, atraumatic. EYES: extraocular movements intact, sclera anicteric, conjunctiva clear. ENT: Normal voice, Moist mucous membranes. NECK: Normal range of motion, supple LUNGS: Breath sounds equal, clear to auscultation bilaterally. No wheezes, no rhonchi, no rales. HEART: Regular rate and rhythm, without murmur, rub or gallop. ABDOMEN: Soft, nontender, No guarding, no rebound.No CVA tenderness EXTREMITIES: Normal range of motion, no edema. No cyanosis. No erythema, or tenderness. NEUROLOGICAL: No facial assymetry, Normal speech, PSYCH: Normal mood, normal affect. SKIN: Warm, Dry, normal turgor <RocaGiomilsy - Last Filed: 10/20/17 10:11> - Vital Signs Last Vital Signs Temp Pulse Resp BP Pulse Ox 97.2 F L 80 16 129/85 100 10/20/17 08:37 10/20/17 08:37 10/20/17 08:37 10/20/17 08:37 10/20/17 08:37 <Everardo Bullock - Last Filed: 10/20/17 11:55> Heart Score/ECG Review - ECG Impressions Comment:: 10/20/17 11:55 Twelve-lead EKG was performed and reviewed by me. There is normal sinus rhythm with a normal rate. rate of [address]-T wave changes suggestive of acute ischemia <Everardo Bullock - Last Filed: 10/20/17 11:55> ED Treatment Course - LABORATORY CBC & Chemistry Diagram: 10/20/17 10:00 10/20/17 10:00 <Everardo Bullock - Last Filed: 10/20/17 11:55> Medical Decision Making - Medical Decision Making 10/20/17 09:26 52y F hx of bipolar, astham presents with diffuse lower abd pain and diarrhea. Pt notes she had some yoruba food last night and had 3 nonbloody nonmelnatic soft bowel movements. Pt had 7/10 difuse lower abd aching abd pain. No associated fever/chills, nausea/vomiting. on exam pt is well appearing, abd soft nontender, no cva tenderness suspect enteritis will ck basic labs will give fluids michelle lreassess 10/20/17 11:01 labs reviewed pt feeling improved will dc with pmd fu pt had a bagal here and is fine will dc with pmd fu retur nprecautions were discussed I discussed the physical exam findings, ancillary test results and final diagnoses with the patient. I answered all of the patient's questions. The patient was satisfied with the care received and felt comfortable with the discharge plan and treatment plan. The patient will call their primary care physician within 24 hours to arrange follow-up and will return to the Emergency Department with any new, persistent or worsening symptoms. <Everardo Bullock - Last Filed: 10/20/17 11:55> *DC/Admit/Observation/Transfer - Attestations Scribe Attestion: 10/20/17 10:12 Documentation prepared by Liliana Roca, acting as medical information officer for Everardo Bullock MD. <Liliana Roca - Last Filed: 10/20/17 10:11> - Discharge Dispostion Decision to Admit order: No <Everardo Bullock - Last Filed: 10/20/17 11:55> Diagnosis at time of Disposition: Diarrhea Qualifiers: Diarrhea type: unspecified type Qualified Code(s): R19.7 - Diarrhea, unspecified - Discharge Dispostion Disposition: HOME Condition at time of disposition: Improved - Referrals Referrals: Brittney Hinkle [Primary Care Provider] - - Patient Instructions Printed Discharge Instructions: DI for Diarrhea and Traveler's Diarrhea -- Adult Additional Instructions: Return to the emergency department immediately with ANY new, persistent or worsening symptoms including worsening abdominal pain, fevers, inability to tolerate oral intake, chest pain, shortness of breath or any other concerns. Stay well hydrated. You MUST call and follow up with your doctor tomorrow. Your emergency department visit is not complete without a followup with your doctor for reevaluation. Please make sure your doctor reviews the results of your emergency evaluation. Print Language: GEORGIAN - Post Discharge Activity
[2017-10-20] MEDS ORDERED: SODIUM CHLORIDE 1,000 ML IV ONE (09:27)
[2017-10-20] MEDS ORDERED: MAG HYDROX/AL HYDROX/SIMETH 30 ML UNIT-DOSE CUP PO ONE (09:29)
[2017-10-20] MEDS ORDERED: FAMOTIDINE 20 MG/50 ML IVPB 20 MG/50 ML MG IVPB ONE ×2 (09:29→09:36)
[2017-10-20] MEDS ORDERED: MAG HYDROX/AL HYDROX/SIMETH 30 ML UNIT-DOSE CUP ONE (09:36)
[2017-10-20 10:19] LABS: BASO % 1.4 % (0-2.0); HEMATOCRIT 36.8 % (32.4-45.2); HEMOGLOBIN 11.6 GM/dL (10.7-15.3); LYMPH % 40.7 % (8-40); MCH 25.5 pg (25.7-33.7); MCHC 31.6 g/dl (32.0-36.0); MEAN PLT VOLUME 8.2 fl (7.5-11.1); MONO % 12.4 % (3.8-10.2); NEUT % 36.5 % (42.8-82.8); PLATELET COUNT 377 K/MM3 (134-434); RBC 4.55 M/mm3 (3.60-5.2); RDW 17.2 % (11.6-15.6); WHITE BLOOD COUNT 9.2 K/mm3 (4.0-10.0)
[2017-10-20 10:35] LABS: HCG,QUALITATIVE URINE NEGATIVE
[2017-10-20 10:38] LABS: ALBUMIN 2.8 g/dl (3.4-5.0); ANION GAP 7 (8-16); BILIRUBIN,TOTAL 0.3 mg/dL (0.2-1.0); BLOOD UREA NITROGEN 13 mg/dL (7-18); CALCIUM 8.8 mg/dL (8.5-10.1); CHLORIDE 102 mmol/L (98-107); CO2 29 mmol/L (21-32); CREATININE 0.6 mg/dL (0.55-1.02); GLUCOSE,RANDOM 92 mg/dL (74-106); SGOT/AST 21 U/L (15-37); SGPT/ALT 18 U/L (12-78); SODIUM 138 mmol/L (136-145); TOT PROT 6.7 g/dl (6.4-8.2); URINE APPEARANCE CLEAR; URINE BILIRUBIN NEGATIVE (<2.0 mg/dL); URINE COLOR STRAW; URINE GLUCOSE (UA) NEGATIVE (NEGATIVE); URINE KETONE NEGATIVE (NEGATIVE); URINE LEUK ESTERASE NEGATIVE (NEGATIVE); URINE NITRITE NEGATIVE (NEGATIVE); URINE PROTEIN NEGATIVE (NEGATIVE); URINE UROBILINOGEN NEGATIVE mg/dL (0.2-1.0)
[2017-10-20 10:39] LABS: ALK PHOS 109 U/L (45-117)
[2017-10-20 11:15] VITALS: BP 128/79; PULSE 76
--- NOTE | 2017-10-21 08:54 | EKG ---
Test Reason : Blood Pressure : / mmHG Vent. Rate : 065 BPM Atrial Rate : 065 BPM P-R Int : 166 ms QRS Dur : 074 ms QT Int : 442 ms P-R-T Axes : 070 -08 018 degrees QTc Int : 459 ms NORMAL SINUS RHYTHM LOW VOLTAGE QRS BORDERLINE ECG WHEN COMPARED WITH ECG OF 23-FEB-2017 09:16, NO SIGNIFICANT CHANGE WAS FOUND Confirmed by ALEJANDRA GAINES MD ([id number]) on 10/21/2017 8:54:03 AM Referred By: Confirmed By:ALEJANDRA GAINES MD
== END 2017-10-20 11:13 | disposition home or self-care (01) ==
LOC: JER 08:21
PROC: 3E033GC Introduction of Other Therapeutic Substance into Peripheral Vein, Percutaneous Approach (ICD-10-PCS; principal; 2017-10-20)
PROC: 3E0337Z Introduction of Electrolytic and Water Balance Substance into Peripheral Vein, Percutaneous Approach (ICD-10-PCS; 2017-10-20)
DX: R19.7 Diarrhea, unspecified (principal); J45.909 Unspecified asthma, uncomplicated; F31.9 Bipolar disorder, unspecified; Z88.2 Allergy status to sulfonamides
CPT/HCPCS: 36415; 80053; 81003; 84703; 85025; 93005; 93010; 96365; 99282-25; J7030

== ENCOUNTER → 2017-12-08 | Emergency (ER) | payer OTHER ==
[~2017-12-08] MED LIST changes: +ACETAMINOPHEN 325 MG TABLET (FP) ONE; +ACETAMINOPHEN 325 MG TABLET (FP) PO ONE; +ALBUTEROL SO4 0.083% IH SOL 2.5 MG/3 ML VIAL.NEB. NEB ONE; +ALBUTEROL SO4 2.5/IPRATROPIUM 0.5 INH SOL 3 ML VIAL.NEB. NEB ONE; -ALBUTEROL SO4 2.5/IPRATROPIUM 0.5 INH SOL 3 ML VIAL.NEB. NEB STA; -ASPIRIN 81 MG CHEWABLE TABLETS ONE
[2017-12-08 06:23] VITALS: TEMP 97.8; BMI 35.4
--- NOTE | 2017-12-08 07:41 | PDOC ---
Attending Attestation - Resident Resident Name: Huber Pearce - ED Attending Attestation I have performed the following: The case was reviewed & discussed with the resident, I agree w/resident's findings & plan, Exceptions are as noted (pt left prior to medical exam by attending, eloped from department) - HPI HPI: 12/08/17 07:40 52 YOF with h/o asthma and bipolar d/o with increased wheezing x 2-3 days, with chest tightness and SOB. using albuterol inhaler QID, nebs 2-3X per day, advair , with minimal relief. +diarrhea x 2 days with suspicious food intake, nonbloody, dysuria and urinary frequency x 2 days usually takes prednisone 10 mg daily, but off x 2 weeks because she was feeling well. 12/08/17 09:19 - Physicial Exam PE: 12/08/17 09:19 no t performed, pt eloped prior to examination. - Medical Decision Making 12/08/17 07:40 received HPI from resident, 52 YOF with bipolar and asthma p/w increased SOB, wheezing, urinary and GI sx after suspicious food intake. vitals wnl, normal sats given duonebs x3, prednisone PO burst. labs and lytes_ wnl, but chem hemolyzed, unable to obtain as she eloped UA_neg CXR_clear, no pna. pt eloped prior to my evaluation, reviewed the above HPI and physical by resident as planned. will attempt clinical call back for reevaluation and updates. 12/08/17 09:21
--- NOTE | 2017-12-08 07:55 | PDOC ---
History of Present Illness - General History Source: Patient Exam Limitations: No Limitations - History of Present Illness Initial Comments: 52 y/o F w/PMH of asthma and bipolar d/o presents to the ER w/ c/o SOB and KEARNEY over the last 2-3 days and cough with yellow sputum. She normally uses 1 neb/ day and uses her albuterol inh 1x/day but over the last 2-3 days has used the nebs 2x/dayand alb inh 4x/day with minimal relief. Her trigger is weather changes which is what she feels triggered it at this time. Her KEARNEY is her usual KEARNEY she feels with her asthma exacerbations which is normally relieved with tylenol or advil. Also has not been using her prednisone (10 mg qd) for 2 weeks now because she had been feeling well. Denies N/V/F/C, CP, chest pressure , light-headedness, dizziness, LE edema, sick contacts, recent travel, smoking hx. She has been in ER multiple times in the past for asthma exacerbation. She does complain of dysuria and increased frequency over the last 2 days but no blood in urine. Also c/o loose watery stool over the last 2-3 days after eating a turkey sandwich from a deli and her mother who also had the sandwich has same issues. No abdominal pain or blood in stool reported. <Huber Pearce - Last Filed: 12/08/17 09:19> <Lakeisha Ibrahim - Last Filed: 12/10/17 18:21> - General Chief Complaint: Shortness of Breath Stated Complaint: DIFFICULTY BREATHING,HEADACHE Time Seen by Provider: 12/08/17 07:23 Past History - Travel Traveled outside of the country in the last 30 days: No - Past Medical History Anemia: No Asthma: Yes Cancer: No Cardiac Disorders: No CVA: No COPD: No CHF: No DVT: No Dementia: No Diabetes: No GI Disorders: No Disorders: No HTN: No Hypercholesterolemia: Yes Liver Disease: No Psychiatric Problems: Yes (Bipolar) Seizures: No Thyroid Disease: No - Surgical History Abdominal Surgery: No Appendectomy: No Cardiac Surgery: No Cholecystectomy: No Lung Surgery: No Neurologic Surgery: No Orthopedic Surgery: No - Immunization History Immunization Up to Date: Yes - Suicide/Smoking/Psychosocial Hx Smoking Status: No Smoking History: Never smoked Have you smoked in the past 12 months: No Number of Cigarettes Smoked Daily: 0 Cigars Per Day: 0 Information on smoking cessation initiated: No Hx Alcohol Use: No Drug/Substance Use Hx: No Substance Use Type: None Hx Substance Use Treatment: No <Huber Pearce - Last Filed: 12/08/17 09:19> <Lakeisha Ibrahim - Last Filed: 12/10/17 18:21> - Past Medical History Allergies/Adverse Reactions: Allergies Allergy/AdvReac Type Severity Reaction Status Date / Time surjit Allergy Mild Verified 12/08/17 06:23 Sulfa (Sulfonamide Allergy Rash Verified 12/08/17 06:23 Antibiotics) [Sulfa(Sulfonamide Antibiotics)] Home Medications: Ambulatory Orders Fluticasone/Salmeterol [Advair 250-50 Diskus] 1 each IH BID 10/20/17 Prednisone 10 mg PO 12/08/17 Review of Systems - Review of Systems Able to Perform ROS?: Yes Constitutional: No: Chills, Fever HEENTM: No: Throat Pain, Other (rhinorrhea) Respiratory: Yes: Shortness of Breath, SOB with Exertion, SOB at Rest, Wheezing , Productive cough Cardiac (ROS): No: Chest Pain, Edema, Lightheadedness, Palpitations ABD/GI: Yes: Diarrhea. No: Nausea, Vomiting, Abdominal cramping : Yes: Burning, Dysuria, Frequency. No: Hematuria Neurological: Yes: Headache. No: Dizziness <Huber Pearce - Last Filed: 12/08/17 09:19> *Physical Exam - Vital Signs Last Vital Signs Temp Pulse Resp BP Pulse Ox 97.8 F 62 18 112/67 100 12/08/17 05:50 12/08/17 05:50 12/08/17 05:50 12/08/17 05:50 12/08/17 05:50 - Physical Exam General Appearance: Yes: Appropriately Dressed, Obese. No: Apparent Distress HEENT: positive: EOMI, Sinus Tenderness Neck: positive: Supple Respiratory/Chest: positive: Wheezing. negative: Accessory Muscle Use Cardiovascular: positive: Regular Rhythm, Regular Rate, S1, S2. negative: Murmur Gastrointestinal/Abdominal: positive: Normal Bowel Sounds, Soft. negative: Tender Extremity: negative: Pedal Edema Neurologic: positive: Fully Oriented, Alert <Huber Pearce - Last Filed: 12/08/17 09:19> - Vital Signs Last Vital Signs Temp Pulse Resp BP Pulse Ox 97.8 F 67 17 123/84 100 12/08/17 05:50 12/08/17 08:15 12/08/17 08:15 12/08/17 08:15 12/08/17 08:15 <Lakeisha Ibrahim - Last Filed: 12/10/17 18:21> ED Treatment Course - LABORATORY CBC & Chemistry Diagram: 12/08/17 08:10 12/08/17 08:10 <Huber Pearce - Last Filed: 12/08/17 09:19> - LABORATORY CBC & Chemistry Diagram: 12/08/17 08:10 12/08/17 08:10 - ADDITIONAL ORDERS Additional order review: 12/08/17 08:30 Urine Culture - Final Urine - Urine Clean Catch NO GROWTH OBTAINED 12/08/17 08:10 RBC 5.12 MCV 81.4 MCHC 31.7 L RDW 16.6 H MPV 8.2 Neutrophils % 35.0 L Lymphocytes % 47.5 H Monocytes % 8.2 Eosinophils % 7.9 H Basophils % 1.4 - RADIOLOGY Radiology Studies Ordered: Category Date Time Status CHEST PA & LAT [RAD] Stat Radiology 12/08/17 07:41 Completed - Medications Given in the ED: ED Medications Discontinued Medications Generic Name Dose Route Start Last Admin Trade Name Mejiaq PRN Reason Stop Dose Admin Acetaminophen 650 mg 12/08/17 07:52 12/08/17 07:59 Tylenol - PO 12/08/17 07:53 650 mg ONCE ONE Administration Albuterol Sulfate 1 amp 12/08/17 07:41 12/08/17 07:56 Ventolin 0.083% Nebulizer Soln - NEB 12/08/17 07:42 1 amp ONCE ONE Administration Albuterol/Ipratropium 2 amp 12/08/17 07:44 12/08/17 07:56 Duoneb - NEB 12/08/17 07:45 2 amp ONCE ONE Administration Prednisone 60 mg 12/08/17 07:41 12/08/17 07:56 Deltasone - PO 12/08/17 07:42 60 mg ONCE ONE Administration <Lakeisha Ibrahim - Last Filed: 12/10/17 18:21> Medical Decision Making - Medical Decision Making 12/08/17 08:02 SOB likely due to asthma exacerbation. Will gives alb/duo-nebs and prednisone 60 mg po. Diarrhea likely due to gastroenteritis. Dysuria and increased frequency - will check UA Will check CBC, chemistry, lipase, UA, CXR. Tylenol for KEARNEY. 12/08/17 09:17 CBC wnl, UA wnl. CMP hemolyzed. Pt has eloped at this time. 12/08/17 09:19 <Huber Pearce - Last Filed: 12/08/17 09:19> - Medical Decision Making see attending note, eloped prior to MD caban by attending physician. 12/10/17 18:21 <Lakeisha Ibrahim - Last Filed: 12/10/17 18:21> *DC/Admit/Observation/Transfer <Huber Pearce - Last Filed: 12/08/17 09:19> <Lakeisha Ibrahim - Last Filed: 12/10/17 18:21> Diagnosis at time of Disposition: Eloped - Discharge Dispostion Disposition: ELP Condition at time of disposition: Fair - Referrals Referrals: Brittney Hinkle [Primary Care Provider] - - Patient Instructions - Post Discharge Activity
[2017-12-08 08:23] LABS: BASO % 1.4 % (0-2.0); EOS % 7.9 % (0-4.5); HEMATOCRIT 41.6 % (32.4-45.2); HEMOGLOBIN 13.2 GM/dL (10.7-15.3); LYMPH % 47.5 % (8-40); MCH 25.8 pg (25.7-33.7); MCHC 31.7 g/dl (32.0-36.0); MEAN CELL VOLUME 81.4 fl (80-96); MEAN PLT VOLUME 8.2 fl (7.5-11.1); MONO % 8.2 % (3.8-10.2); PLATELET COUNT 472 K/MM3 (134-434); RBC 5.12 M/mm3 (3.60-5.2); RDW 16.6 % (11.6-15.6); WHITE BLOOD COUNT 7.3 K/mm3 (4.0-10.0)
[2017-12-08 08:46] VITALS: BP 123/84; PULSE 67
[2017-12-08 08:52] LABS: HCG,QUALITATIVE URINE Negative; URINE APPEARANCE SLCLOUDY; URINE BILIRUBIN NEGATIVE (<2.0 mg/dL); URINE COLOR YELLOW; URINE GLUCOSE (UA) NEGATIVE (NEGATIVE); URINE KETONE NEGATIVE (NEGATIVE); URINE LEUK ESTERASE NEGATIVE (NEGATIVE); URINE NITRITE NEGATIVE (NEGATIVE); URINE PROTEIN NEGATIVE (NEGATIVE); URINE UROBILINOGEN NEGATIVE mg/dL (0.2-1.0)
== END | disposition left against medical advice (07) ==
LOC: JER 05:47
PROC: 3E0F7GC Introduction of Other Therapeutic Substance into Respiratory Tract, Via Natural or Artificial Opening (ICD-10-PCS; principal; 2017-12-08)
PROC: 3E0F7GC Introduction of Other Therapeutic Substance into Respiratory Tract, Via Natural or Artificial Opening (ICD-10-PCS; 2017-12-08)
DX: J45.901 Unspecified asthma with (acute) exacerbation (principal)
CPT/HCPCS: 36415; 71046-TC-FY; 81003; 84703; 85025; 87086; 94640; 99282-25; J7620

== ENCOUNTER 2018-01-30 01:42 | Emergency (ER) | payer OTHER ==
[2018-01-30] MEDS ORDERED: ALBUTEROL SO4 2.5/IPRATROPIUM 0.5 INH SOL 3 ML VIAL.NEB. NEB ONE ×2 (02:04→02:30)
[2018-01-30] MEDS ORDERED: predniSONE 20 MG TABLET (UD) PO ONE (02:04)
[2018-01-30] MEDS ORDERED: ACETAMINOPHEN 325 MG TABLET (FP) PO ONE (02:04)
[2018-01-30 02:07] VITALS: BP 128/78; PULSE 76; TEMP 98.7; BMI 45.7
[2018-01-30] MEDS ORDERED: predniSONE 20 MG TABLET (UD) ONE (02:30)
[2018-01-30] MEDS ORDERED: ACETAMINOPHEN 325 MG TABLET (FP) ONE (02:30)
[2018-01-30] MEDS ORDERED: predniSONE 10 MG TABLET (UD) ONE (02:31)
--- NOTE | 2018-01-30 02:45 | PDOC ---
History of Present Illness - General History Source: Patient Exam Limitations: No Limitations <Aly Yeh - Last Filed: 01/30/18 02:51> - General History Source: Patient Exam Limitations: No Limitations - History of Present Illness Initial Comments: 01/30/18 04:09 The patient is a 52 year old female with a significant PMH of asthma who presents to the emergency department with an asthma exacerbation prior to arrival to the emergency department. She denies any chest pain, shortness of breath, palpitation. She denies any fever, chills, nausea, vomiting, diarrhea, constipation or urinary complaints. She denies any other complaints. <Tameka Godoy - Last Filed: 01/30/18 04:10> - General Chief Complaint: Asthma Stated Complaint: ASTHMA Time Seen by Provider: 01/30/18 02:04 Past History - Past Medical History Anemia: No Asthma: Yes Cancer: No Cardiac Disorders: No CVA: No COPD: No CHF: No DVT: No Dementia: No Diabetes: No GI Disorders: No Disorders: No HTN: No Hypercholesterolemia: Yes Liver Disease: No Psychiatric Problems: Yes (Bipolar) Seizures: No Thyroid Disease: No - Surgical History Abdominal Surgery: No Appendectomy: No Cardiac Surgery: No Cholecystectomy: No Lung Surgery: No Neurologic Surgery: No Orthopedic Surgery: No - Immunization History Immunization Up to Date: Yes - Suicide/Smoking/Psychosocial Hx Smoking Status: No Smoking History: Never smoked Have you smoked in the past 12 months: No Number of Cigarettes Smoked Daily: 0 Cigars Per Day: 0 Information on smoking cessation initiated: No Hx Alcohol Use: No Drug/Substance Use Hx: No Substance Use Type: None Hx Substance Use Treatment: No <Aly Yeh - Last Filed: 01/30/18 02:51> <Tameka Godoy - Last Filed: 01/30/18 04:10> - Past Medical History Allergies/Adverse Reactions: Allergies Allergy/AdvReac Type Severity Reaction Status Date / Time surjit Allergy Mild Verified 01/30/18 02:08 Sulfa (Sulfonamide Allergy Rash Verified 01/30/18 02:08 Antibiotics) [Sulfa(Sulfonamide Antibiotics)] Home Medications: Ambulatory Orders Fluticasone/Salmeterol [Advair 250-50 Diskus] 1 each IH BID 10/20/17 Prednisone 10 mg PO 12/08/17 Quetiapine Fumarate [Seroquel] 100 mg PO DAILY #14 tablet 01/30/18 predniSONE [Deltasone -] 60 mg PO DAILY #12 tablet 01/30/18 Review of Systems - Review of Systems Able to Perform ROS?: Yes Comments:: 01/30/18 04:09 GENERAL/CONSTITUTIONAL: No fever or chills. No weakness. HEAD, EYES, EARS, NOSE AND THROAT: No change in vision. No ear pain or discharge. No sore throat. CARDIOVASCULAR: No chest pain or shortness of breath. RESPIRATORY: (+)wheezing. No cough or hemoptysis. GASTROINTESTINAL: No nausea, vomiting, diarrhea or constipation. GENITOURINARY: No dysuria, frequency, or change in urination. MUSCULOSKELETAL: No joint or muscle swelling or pain. No neck or back pain. SKIN: No rash NEUROLOGIC: No headache, vertigo, loss of consciousness, or change in strength/ sensation. ENDOCRINE: No increased thirst. No abnormal weight change. HEMATOLOGIC/LYMPHATIC: No anemia, easy bleeding, or history of blood clots. ALLERGIC/IMMUNOLOGIC: No hives or skin allergy. <Tameka Godoy - Last Filed: 01/30/18 04:10> *Physical Exam - Vital Signs Last Vital Signs Temp Pulse Resp BP Pulse Ox 98.7 F 76 20 128/78 97 01/30/18 01:45 01/30/18 01:45 01/30/18 01:45 01/30/18 01:45 01/30/18 01:45 <Aly Yeh - Last Filed: 01/30/18 02:51> - Vital Signs Last Vital Signs Temp Pulse Resp BP Pulse Ox 98.7 F 76 20 128/78 97 01/30/18 01:45 01/30/18 01:45 01/30/18 01:45 01/30/18 01:45 01/30/18 01:45 - Physical Exam Comments: 01/30/18 04:09 GENERAL: Awake, alert, and fully oriented, in no acute distress HEAD: No signs of trauma ENT: Auricles normal inspection, hearing grossly normal, nares patent, oropharynx clear without exudates. Moist mucosa LUNGS: (+)mild diffuse expiratory wheezing. Breath sounds equal, clear to auscultation bilaterally. No crackles HEART: Regular rate and rhythm, normal S1 and S2, no murmurs, rubs or gallops ABDOMEN: obese. Soft, nontender, normoactive bowel sounds. No guarding, no rebound. No masses EXTREMITIES: Normal range of motion, no edema. No clubbing or cyanosis. No cords, erythema, or tenderness NEUROLOGICAL: Cranial nerves II through XII grossly intact. Normal speech, normal gait SKIN: Warm, Dry, normal turgor, no rashes or lesions noted. <Tameka Godoy - Last Filed: 01/30/18 04:10> ED Treatment Course - Medications Given in the ED: ED Medications Discontinued Medications Generic Name Dose Route Start Last Admin Trade Name Freq PRN Reason Stop Dose Admin Acetaminophen 975 mg 01/30/18 02:04 01/30/18 02:50 Tylenol - PO 01/30/18 02:05 975 mg ONCE ONE Administration Albuterol/Ipratropium 1 amp 01/30/18 02:04 01/30/18 02:50 Duoneb - NEB 01/30/18 02:05 1 amp ONCE ONE Administration Prednisone 50 mg 01/30/18 02:04 01/30/18 02:50 Deltasone - PO 01/30/18 02:05 50 mg ONCE ONE Administration <Tameka Godoy - Last Filed: 01/30/18 04:10> Medical Decision Making - Medical Decision Making 01/30/18 02:51 A portion of this note was documented by scribe services under my direction. I have reviewed the details of the note, within reason, and agree with the documentation with the following case summary and management plan written by me. Patient treated in the ED. Nursing notes are reviewed and incorporated into the medical decision-making. Vital signs reviewed. Peripheral IV access obtained by the nurse, laboratory studies are drawn and sent, reviewed and interpreted by myself. 52-year-old female patient with history of asthma, well-known to me, presents with asthma exacerbation. Reported that the symptoms occurred 2 hours prior to arrival. Stated she also had a mild tension headache associated with it. Came to the ER for further rash. No fevers or chills. Denies cough or chest tightness. Patient was given 2 duonebs and prednisone with significant improvement of symptoms. Patient likely with mild asthma exacerbation. We'll have the patient follow up with her primary care physician. I discussed the physical exam findings, ancillary test results and final diagnoses with the patient. I answered all of the patient's questions. The patient was satisfied with the care received and felt comfortable with the discharge plan and treatment plan. The patient will call their primary care physician within 24 hours to arrange follow-up and will return to the Emergency Department with any new, persistant or worsening symptoms. <Aly Yeh - Last Filed: 01/30/18 02:51> *DC/Admit/Observation/Transfer - Discharge Dispostion Decision to Admit order: No <Aly Yeh - Last Filed: 01/30/18 02:51> - Attestations Scribe Attestion: 01/30/18 04:10 Documentation prepared by Tameka Godoy, acting as medical center representative for Aly Yeh MD. <Tameka Godoy - Last Filed: 01/30/18 04:10> Diagnosis at time of Disposition: Asthma exacerbation Qualifiers: Asthma severity: unspecified severity Asthma persistence: unspecified Qualified Code(s): J45.901 - Unspecified asthma with (acute) exacerbation Headache Qualifiers: Headache type: unspecified Headache chronicity pattern: acute headache Intractability: not intractable Qualified Code(s): R51 - Headache - Discharge Dispostion Disposition: HOME Condition at time of disposition: Improved - Prescriptions Prescriptions: predniSONE [Deltasone -] 60 mg PO DAILY #12 tablet Quetiapine Fumarate [Seroquel] 100 mg PO DAILY #14 tablet - Referrals Referrals: Brittney Hinkle [Primary Care Provider] - - Patient Instructions Printed Discharge Instructions: Asthma -- Adult, DI for Headache Additional Instructions: Please take the medications as prescribed. Take 2 puffs of albuterol every 4 hours as needed for wheezing. Take the prednisone as prescribed. Follow up with your doctor. - Post Discharge Activity
== END 2018-01-30 03:42 | disposition home or self-care (01) ==
LOC: JER 01:42
PROC: 3E0F7GC Introduction of Other Therapeutic Substance into Respiratory Tract, Via Natural or Artificial Opening (ICD-10-PCS; principal; 2018-01-30)
DX: J45.901 Unspecified asthma with (acute) exacerbation (principal)
CPT/HCPCS: 99281-25

== ENCOUNTER 2018-01-31 22:25 | Emergency (ER) | payer OTHER ==
[2018-01-31 22:32] VITALS: BP 151/100; PULSE 72; TEMP 98.7; BMI 45.7
[2018-01-31] MEDS ORDERED: ALBUTEROL SO4 2.5/IPRATROPIUM 0.5 INH SOL 3 ML VIAL.NEB. NEB ONE ×2 (22:35→23:00)
--- NOTE | 2018-01-31 22:38 | PDOC ---
History of Present Illness - General Chief Complaint: Asthma Stated Complaint: Shortness of Breath Time Seen by Provider: 01/31/18 22:37 History Source: Patient Exam Limitations: No Limitations - History of Present Illness Initial Comments: 01/31/18 23:16 Ms Mcknight is a 52 yo F with a hx of bipolar disorder (on halidol 50 mg IM last administration 3 months ago) and asthma who was recently discharged from our department yesterday for the same chief complaint (given 2x duonebs and prednisone) presents to the emergency department with shortness of breath. She states that she was at [facility] 1 hr ago after a sudden onset of shortness of breathing and was given prednisone 40 mg. She repeatedly stated "I don't feel good" and "I want another nebulizer". Prior to her presentation, she stated she used 1 pump of albuterol. She denies the following: fever, chills, nausea, vomiting, FND, visual changes, chest pain, abdominal pain, dysuria, hematuria, diarrhea, hematochezia, and leg pain/swelling. No recent travels, hormone use, hx of DVT and PE hx. Patient repeatedly stated that she fell down 3 flights of stairs but denies LOC or injuries sustained from it. Pmhx: Refer to above Shx: None Meds: halidol. Per mother of patient, she states that she is also on seroquel Allergies: sulfa Social: Denies tobacco, alcohol, and substance abuse Past History - Past Medical History Allergies/Adverse Reactions: Allergies Allergy/AdvReac Type Severity Reaction Status Date / Time surjit Allergy Mild Verified 01/31/18 22:32 Sulfa (Sulfonamide Allergy Rash Verified 01/31/18 22:32 Antibiotics) [Sulfa(Sulfonamide Antibiotics)] Home Medications: Ambulatory Orders Fluticasone/Salmeterol [Advair 250-50 Diskus] 1 each IH BID 10/20/17 Quetiapine Fumarate [Seroquel] 100 mg PO DAILY #14 tablet 01/30/18 predniSONE [Deltasone -] 60 mg PO DAILY #12 tablet 01/30/18 Anemia: No Asthma: Yes Cancer: No Cardiac Disorders: No CVA: No COPD: No CHF: No DVT: No Dementia: No Diabetes: No GI Disorders: No Disorders: No HTN: No Hypercholesterolemia: Yes Liver Disease: No Psychiatric Problems: Yes (Bipolar) Seizures: No Thyroid Disease: No - Surgical History Abdominal Surgery: No Appendectomy: No Cardiac Surgery: No Cholecystectomy: No Lung Surgery: No Neurologic Surgery: No Orthopedic Surgery: No - Immunization History Immunization Up to Date: Yes - Suicide/Smoking/Psychosocial Hx Smoking Status: No Smoking History: Never smoked Have you smoked in the past 12 months: No Number of Cigarettes Smoked Daily: 0 Cigars Per Day: 0 Hx Alcohol Use: No Drug/Substance Use Hx: No Substance Use Type: None Hx Substance Use Treatment: No Review of Systems - Review of Systems Able to Perform ROS?: Yes Is the patient limited Welsh proficient: No Constitutional: No: Chills, Diaphoresis, Fever HEENTM: No: Recent change in vision, Nose Pain, Throat Pain, Mouth Pain Respiratory: Yes: Shortness of Breath. No: Cough, Hemoptysis Cardiac (ROS): No: Chest Pain, Lightheadedness, Palpitations, Syncope, Chest Tightness ABD/GI: Yes: Constipated. No: Diarrhea, Nausea, Poor Fluid Intake, Rectal Bleeding, Vomiting, Tarry Stools : No: Burning, Dysuria, Flank Pain, Hematuria, Urgency Musculoskeletal: No: Back Pain, Joint Pain, Neck Pain Integumentary: No: Bruising, Lesions, Rash Neurological: Yes: Headache. No: Paresthesia, Tremors, Weakness, Ataxia Psychiatric: No: Stressors Endocrine: No: Unexplained Weight Gain Hematologic/Lymphatic: No: Anemia *Physical Exam - Vital Signs Last Vital Signs Temp Pulse Resp BP Pulse Ox 98.7 F 72 20 151/100 100 01/31/18 22:29 01/31/18 22:29 01/31/18 22:29 01/31/18 22:29 01/31/18 22:29 - Physical Exam General Appearance: Yes: Nourished, Appropriately Dressed, Obese, Other (labile) HEENT: positive: EOMI, LISA, Normal Voice, Symmetrical, Pharynx Normal Neck: positive: Trachea midline. negative: Lymphadenopathy (R), Lymphadenopathy (L), Tender lateral, Tender midline Respiratory/Chest: positive: Lungs Clear, Other (mild expiratory wheezes bilaterally. ). negative: Chest Tender, Respiratory Distress, Accessory Muscle Use, Crackles, Rales, Rhonchi, Stridor Cardiovascular: positive: Regular Rhythm, Regular Rate, S1, S2. negative: Systolic Murmur Gastrointestinal/Abdominal: positive: Normal Bowel Sounds, Soft. negative: Tender Lymphatic: negative: Adenopathy Musculoskeletal: positive: Normal Inspection. negative: CVA Tenderness, Vertebral Tenderness Extremity: positive: Normal Capillary Refill, Normal Inspection, Normal Range of Motion. negative: Tender Integumentary: positive: Normal Color, Dry, Warm Neurologic: positive: shift supervisor II-XII NML intact, Fully Oriented, Alert, Motor Strength 5/5. negative: Normal Mood/Affect (labile, goes from agitations to concerns to friendly), Normal Response, Sensory Deficit Medical Decision Making - Medical Decision Making Ms Mcknight is a 52 yo F with a hx of bipolar disorder (on halidol 50 mg IM last administration 3 months ago) and asthma who was recently discharged from our department yesterday for the same chief complaint (given 2x duonebs and prednisone) presents to the emergency department with shortness of breath. Initial vitals: Initial Vital Signs Temp Pulse Resp BP Pulse Ox 98.7 F 72 20 151/100 100 01/31/18 22:29 01/31/18 22:29 01/31/18 22:29 01/31/18 22:29 01/31/18 22:29 Work up: patient was assessed by me while intaking 1x duoneb. the patient eloped before the medications were able to be given to her. The patient ran out of department. *DC/Admit/Observation/Transfer Diagnosis at time of Disposition: Asthma Qualifiers: Asthma severity: unspecified severity Asthma persistence: unspecified Asthma complication type: unspecified Qualified Code(s): J45.909 - Unspecified asthma, uncomplicated - Discharge Dispostion Disposition: [facility] Decision to Admit order: No - Referrals Referrals: Brittney Hinkle [Primary Care Provider] - - Patient Instructions Printed Discharge Instructions: Asthma -- Adult - Post Discharge Activity
--- NOTE | 2018-01-31 22:45 | PDOC ---
Attending Attestation - HPI HPI: 01/31/18 23:00 The patient is a 52 year old female with a past medical history of asthma and bipolar disorder here today for evaluation of SOB and headaches. The patient reports that she went to [facility] a few hours ago and was told to come to [facility]. The patient was seen yesterday for similar symptoms and was given prednisone. She also reports falling down three steps prior to her arrival. The patient is noncompliant with bipolar medication. Patient denies lightheadedness. Denies fever, chills. Denies chest pain. Denies nausea, vomiting, diarrhea, abdominal pain. Denies lower extremity edema. Denies urinary symptoms. Denies neurologic symptoms. Allergies: Stephen, Sulfa Surgical history: none reported PCP: Brittney Hinkle <Lior Jaffe - Last Filed: 01/31/18 23:10> - Resident Resident Name: Ward Payton - ED Attending Attestation I have performed the following: I have examined & evaluated the patient, The case was reviewed & discussed with the resident, I agree w/resident's findings & plan, Exceptions are as noted - Physicial Exam PE: GENERAL: Awake, alert, and fully oriented, in no acute distress HEAD: No signs of trauma EYES: PERRLA, EOMI, sclera anicteric, conjunctiva clear ENT: Auricles normal inspection, hearing grossly normal, nares patent, oropharynx clear without exudates. Moist mucosa NECK: Normal ROM, supple, no lymphadenopathy, JVD, or masses LUNGS: Breath sounds equal, clear to auscultation bilaterally. +Scattered exp wheezes. Speaking full sentences. HEART: Regular rate and rhythm, normal S1 and S2, no murmurs, rubs or gallops ABDOMEN: Soft, nontender, normoactive bowel sounds. No guarding, no rebound. No masses EXTREMITIES: Normal range of motion, no edema. No clubbing or cyanosis. No cords, erythema, or tenderness NEUROLOGICAL: Cranial nerves II through XII grossly intact. Normal speech, normal gait SKIN: Warm, Dry, normal turgor, no rashes or lesions noted. SPINE: No midline tenderness, no stepoffs, no bruising. - Medical Decision Making Pt requesting prednisone 20 mg, as she received 40 mg at [facility]. She reports improvement with 1 neb in ED. Requesting tylenol for headache. No midline tenderness to spine. No imaging indicated. <Dee Gregory - Last Filed: 02/01/18 00:44>
[2018-01-31] MEDS ORDERED: ACETAMINOPHEN 325 MG TABLET (FP) PO ONE (23:00)
[2018-01-31] MEDS ORDERED: predniSONE 20 MG TABLET (UD) PO ONE (23:02)
[2018-01-31] MEDS ORDERED: ACETAMINOPHEN 325 MG TABLET (FP) ONE (23:04)
[2018-01-31] MEDS ORDERED: predniSONE 20 MG TABLET (UD) ONE (23:04)
== END 2018-01-31 23:10 | disposition left against medical advice (07) ==
LOC: JER 22:25
DX: J45.909 Unspecified asthma, uncomplicated (principal); F31.9 Bipolar disorder, unspecified
CPT/HCPCS: 99282-25

== ENCOUNTER 2018-02-01 20:08 | Emergency (ER) | payer OTHER ==
--- NOTE | 2018-02-01 20:48 | PDOC ---
Rapid Medical Evaluation Time Seen by Provider: 02/01/18 20:41 Medical Evaluation: Allergies Allergy/AdvReac Type Severity Reaction Status Date / Time surjit Allergy Mild Verified 01/31/18 22:32 Sulfa (Sulfonamide Allergy Rash Verified 01/31/18 22:32 Antibiotics) [Sulfa(Sulfonamide Antibiotics)] 02/01/18 20:41 I have performed a brief in person evaluation of this patient. +H/O asthma, bipolar 2017: Took 6 prednisone 20mgs to commit suicide The patient presents with a chief complaints of: Asthma x1h "I don't feel good " +H/O intubation x2 (last was 2011) Pt is on predisone and advair (took today with No relief Took prednisone 20mg today at 10am Pt keeps screaming "I'M WANT TO KILL MYSELF, I DON'T WANT TO LIVE ANYMORE" PT WAS AT [facility] TODAY AND LOST $200 THEN IMMEDIATELY CALLED HER MOTHER TO BRING HER TO THE ER BECAUSE SHE LOST $200. Pertinent physical exam findings: L/S CTAB, RRR, S1S2 I have ordered the following: EKG, ONE TO ONE The patient will proceed to the ED for further evaluation. 02/01/18 21:01
[2018-02-01 20:56] VITALS: BMI 45.7
--- NOTE | 2018-02-01 21:28 | PDOC ---
History of Present Illness - General History Source: Patient, Parent(s) - History of Present Illness Initial Comments: 02/02/18 00:01 The patient is a 52 year old female, with a significant past medical history of asthma and bipolar disorder, who presents to the emergency department with, suicidal ideation. As per patients mother, she has a history of steroid induced psychosis. The patient was recently placed on Prednisone and her suicidal ideation onset today. Patient denies any suicide plan or homocidal ideation. The patient is not compliant with visiting a psychiatrist. Her last haldol injection was 3 months ago. She was last admitted to [facility] multiple years ago for her psychosis. Patient is a poor historian due to her psychosis. Allergies: Surjit, Sulfa Primary Care Physician: Dr. Hinkle <Caterina Colby - Last Filed: 02/02/18 00:59> <Laurence Albert - Last Filed: 02/02/18 02:07> - General Chief Complaint: Suicidal Stated Complaint: CHEST PAIN Time Seen by Provider: 02/01/18 20:41 Past History <Caterina Colby - Last Filed: 02/02/18 00:59> - Past Medical History Anemia: No Asthma: Yes Cancer: No Cardiac Disorders: No CVA: No COPD: No CHF: No DVT: No Dementia: No Diabetes: No GI Disorders: No Disorders: No HTN: No Hypercholesterolemia: Yes Liver Disease: No Psychiatric Problems: Yes (Bipolar, suicidal ideations) Seizures: No Thyroid Disease: No - Surgical History Abdominal Surgery: No Appendectomy: No Cardiac Surgery: No Cholecystectomy: No Lung Surgery: No Neurologic Surgery: No Orthopedic Surgery: No - Immunization History Immunization Up to Date: Yes - Suicide/Smoking/Psychosocial Hx Smoking Status: No Smoking History: Never smoked Have you smoked in the past 12 months: No Number of Cigarettes Smoked Daily: 0 Cigars Per Day: 0 Hx Alcohol Use: No Drug/Substance Use Hx: No Substance Use Type: None Hx Substance Use Treatment: No <Laurence Albert - Last Filed: 02/02/18 02:07> - Past Medical History Allergies/Adverse Reactions: Allergies Allergy/AdvReac Type Severity Reaction Status Date / Time surjit Allergy Mild Verified 01/31/18 22:32 Sulfa (Sulfonamide Allergy Rash Verified 01/31/18 22:32 Antibiotics) [Sulfa(Sulfonamide Antibiotics)] Home Medications: Ambulatory Orders Fluticasone/Salmeterol [Advair 250-50 Diskus] 1 each IH BID 10/20/17 Quetiapine Fumarate [Seroquel] 100 mg PO DAILY #14 tablet 01/30/18 predniSONE [Deltasone -] 60 mg PO DAILY #12 tablet 01/30/18 Review of Systems - Review of Systems Able to Perform ROS?: Yes Comments:: 02/02/18 00:01 GENERAL/CONSTITUTIONAL: No fever or chills. No weakness. HEAD, EYES, EARS, NOSE AND THROAT: No change in vision. No ear pain or discharge. No sore throat. GASTROINTESTINAL: No nausea, vomiting, diarrhea or constipation. GENITOURINARY: No dysuria, frequency, or change in urination. CARDIOVASCULAR: No chest pain or shortness of breath. RESPIRATORY: No cough, wheezing, or hemoptysis. MUSCULOSKELETAL: No joint or muscle swelling or pain. No neck or back pain. SKIN: No rash +NEUROLOGIC: Psychosis. Suicidal ideation. No headache, vertigo, loss of consciousness, or change in strength/sensation. ENDOCRINE: No increased thirst. No abnormal weight change. HEMATOLOGIC/LYMPHATIC: No anemia, easy bleeding, or history of blood clots. ALLERGIC/IMMUNOLOGIC: No hives or skin allergy. <Caterina Colby - Last Filed: 02/02/18 00:59> *Physical Exam - Vital Signs Last Vital Signs Temp Pulse Resp BP Pulse Ox 98.1 F 84 20 150/85 100 02/01/18 20:46 02/01/18 20:46 02/01/18 20:46 02/01/18 20:46 02/01/18 20:46 - Physical Exam Comments: 02/02/18 00:59 Constitutional: Awake, alert, oriented. No acute distress. Head: Normocephalic. Atraumatic Eyes: PERRL. EOMI. Conjunctivae are not pale. ENT: Mucous membranes are moist and intact. Posterior pharynx without exudates or erythema. Uvula midline. Neck: Supple. Full ROM. No lymphadenopathy. Cardiovascular: Regular rate. Regular rhythm. S1, S2 regular. Distal pulses are 2+ and symmetric. Pulmonary/Chest: No evidence of respiratory distress. Clear to auscultation bilaterally No wheezing, rales or rhonchi. Abdominal: Soft and non-distended. There is no tenderness. No rebound, guarding or rigidity. No organomegaly. No palpable masses. Good bowel sounds. Back: No CVA tenderness. Musculoskeletal: No edema. No cyanosis. No clubbing. Full range of motion in all extremities. No calf tenderness. Radial/pedal pulses are intact and 2+ bilaterally Skin: Skin is warm and dry. No petechiae. No purpura. Neurological: Alert and oriented to person, place, and time. Cranial nerves II -XII are grossly intact. Normal speech. Strength is grossly symmetric. No sensory deficits. +Psychiatric: [place] thoughts. Suicidal ideation without homicidal ideation. No plan. <Caterina Colby - Last Filed: 02/02/18 00:59> - Vital Signs Last Vital Signs Temp Pulse Resp BP Pulse Ox 98.1 F 84 20 150/85 100 02/01/18 20:46 02/01/18 20:46 02/01/18 20:46 02/01/18 20:46 02/01/18 20:46 <Laurence Albert - Last Filed: 02/02/18 02:07> Heart Score/ECG Review - ECG Intrepretation Comment:: 02/01/18 22:41 sinus at 81, nl axis, nl interval, no acute st/t wave findings, qtc 425 <Laurence Albert - Last Filed: 02/02/18 02:07> ED Treatment Course - LABORATORY CBC & Chemistry Diagram: 02/01/18 22:48 02/01/18 22:48 - ADDITIONAL ORDERS Additional order review: Laboratory Results 02/01/18 22:48 Sodium 139 Potassium 3.4 L Chloride 103 Carbon Dioxide 27 Anion Gap 9 BUN 23 H Creatinine 1.0 Creat Clearance w eGFR 58.45 Random Glucose 103 Calcium 8.1 L Total Bilirubin 0.3 AST 17 ALT 19 Alkaline Phosphatase 100 Total Protein 6.8 Albumin 2.7 L TSH 3.89 H 02/01/18 22:48 RBC 4.75 MCV 79.9 L MCHC 31.5 L RDW 16.3 H MPV 7.5 Neutrophils % 40.1 L Lymphocytes % 49.1 H Monocytes % 8.1 Eosinophils % 0.8 D Basophils % 1.9 <Caterina Colby - Last Filed: 02/02/18 00:59> - LABORATORY CBC & Chemistry Diagram: 02/01/18 22:48 02/01/18 22:48 <Laurence Albert - Last Filed: 02/02/18 02:07> Medical Decision Making - Medical Decision Making 02/01/18 22:39 a/p: 52yo female with hx of bipolar disorder and hx of asthma -recently started on steroids for her asthma and now with acute psychosis - suspect steroids induced her bipolar - now manic -hasn't been hospitalized x years - last time was at [facility], has been inpt at [facility] -doesn't currently have a therapist -has been on haldol injections in the past and is noncompliant with oral meds -mother at the bedside states she has a hx of addiction problems -mother unsure what medication she is supposed to be on -will send labs to eval for organic cause -will discuss with Dr. Daly -will monitor and reassess -pt with flight of ideas and tangential thoughts 02/01/18 23:18 pt making suicidal threats and intermittently having suicidal ideations states she wants to overdose on her steroids 02/01/18 23:[address] Daly 02/02/18 02:06 pt pending psych eval - pt will be signed out to the oncoming ED physician pending psych eval and further eval of manic episode <Laurence Albert - Last Filed: 02/02/18 02:07> *DC/Admit/Observation/Transfer - Attestations Scribe Attestion: 02/02/18 00:01 Documentation prepared by Caterina Colby, acting as manager of medical for Laurence Albert DO. <Caterina oClby - Last Filed: 02/02/18 00:59> - Attestations Physician Attestion: 02/02/18 02:07 I, Dr. Laurence Albert, DO, attest that this document has been prepared under my direction and personally reviewed by me in its entirety. I further attest, that it accurately reflects all work, treatment, procedures and medical decision -making performed by me. <Laurence Albert - Last Filed: 02/02/18 02:07> Diagnosis at time of Disposition: Manic disorder, recurrent episode, severe, with psychotic behavior - Referrals - Patient Instructions - Post Discharge Activity Forms/Work/School Notes: My Personal Safety Plan
[2018-02-01 22:55] LABS: BASO % 1.9 % (0-2.0); EOS % 0.8 % (0-4.5); LYMPH % 49.1 % (8-40); MCH 25.2 pg (25.7-33.7); MCHC 31.5 g/dl (32.0-36.0); MEAN CELL VOLUME 79.9 fl (80-96); MEAN PLT VOLUME 7.5 fl (7.5-11.1); MONO % 8.1 % (3.8-10.2); NEUT % 40.1 % (42.8-82.8); PLATELET COUNT 441 K/MM3 (134-434); RBC 4.75 M/mm3 (3.60-5.2); RDW 16.3 % (11.6-15.6); WHITE BLOOD COUNT 13.6 K/mm3 (4.0-10.0)
[2018-02-01 23:26] LABS: ALBUMIN 2.7 g/dl (3.4-5.0); ALK PHOS 100 U/L (45-117); ANION GAP 9 MMOL/L (8-16); BILIRUBIN,TOTAL 0.3 mg/dL (0.2-1); BLOOD UREA NITROGEN 23 mg/dL (7-18); CALCIUM 8.1 mg/dL (8.5-10.1); CHLORIDE 103 mmol/L (98-107); CO2 27 mmol/L (21-32); GLUCOSE,RANDOM 103 mg/dL (74-106); POTASSIUM 3.4 mmol/L (3.5-5.1); SGOT/AST 17 U/L (15-37); SGPT/ALT 19 U/L (13-61); SODIUM 139 mmol/L (136-145); TOT PROT 6.8 g/dl (6.4-8.2)
[2018-02-02 00:08] LABS: INR 1.01 (0.83-1.09); PROTHROMBIN TIME (PATIENT) 11.9 SEC (9.7-13.0)
[2018-02-02 00:11] LABS: ACTIVATED PTT 24.4 SECONDS (25.2-36.5)
[2018-02-02 01:23] LABS: URINE APPEARANCE SLCLOUDY; URINE BILIRUBIN NEGATIVE (<2.0 mg/dL); URINE COLOR YELLOW; URINE GLUCOSE (UA) NEGATIVE (NEGATIVE); URINE KETONE NEGATIVE (NEGATIVE); URINE LEUK ESTERASE NEGATIVE (NEGATIVE); URINE NITRITE NEGATIVE (NEGATIVE); URINE PROTEIN NEGATIVE (NEGATIVE); URINE UROBILINOGEN NEGATIVE mg/dL (0.2-1.0)
[2018-02-02 01:24] LABS: HCG,QUALITATIVE URINE Negative
--- NOTE | 2018-02-02 11:58 | EKG ---
Test Reason : Blood Pressure : / mmHG Vent. Rate : 081 BPM Atrial Rate : 081 BPM P-R Int : 144 ms QRS Dur : 086 ms QT Int : 366 ms P-R-T Axes : 060 -07 053 degrees QTc Int : 425 ms NORMAL SINUS RHYTHM WITH SINUS ARRHYTHMIA NORMAL ECG WHEN COMPARED WITH ECG OF 20-OCT-2017 10:08, NONSPECIFIC T WAVE ABNORMALITY NO LONGER EVIDENT IN ANTERIOR LEADS Confirmed by WALT SMITH MD ([id number]) on 02/02/2018 11:58:29 AM Referred By: VICTORINO ARANDA Confirmed By:WALT SMITH MD
[2018-02-02 12:30] VITALS: BP 122/76; PULSE 78; TEMP 99.8
--- NOTE | 2018-02-02 13:21 | PDOC ---
*Physical Exam - Vital Signs Last Vital Signs Temp Pulse Resp BP Pulse Ox 99.8 F H 78 18 122/76 93 L 02/02/18 12:29 02/02/18 12:29 02/02/18 12:29 02/02/18 12:29 02/02/18 12:29 ED Treatment Course - LABORATORY CBC & Chemistry Diagram: 02/01/18 22:48 02/01/18 22:48 - ADDITIONAL ORDERS Additional order review: Laboratory Results 02/01/18 02/01/18 22:48 20:50 Sodium 139 Potassium 3.4 L Chloride 103 Carbon Dioxide 27 Anion Gap 9 BUN 23 H Creatinine 1.0 Creat Clearance w eGFR 58.45 Random Glucose 103 Calcium 8.1 L Total Bilirubin 0.3 AST 17 ALT 19 Alkaline Phosphatase 100 Total Protein 6.8 Albumin 2.7 L TSH 3.89 H Free T4 0.88 Urine Color Yellow Urine Appearance Slcloudy Urine pH 5.0 Ur Specific [place] 1.026 Urine Protein Negative Urine Glucose (UA) Negative Urine Ketones Negative Urine Blood Negative Urine Nitrite Negative Urine Bilirubin Negative Urine Urobilinogen Negative Ur Leukocyte Esterase Negative Urine HCG, Qual Negative 02/01/18 22:48 RBC 4.75 MCV 79.9 L MCHC 31.5 L RDW 16.3 H MPV 7.5 Neutrophils % 40.1 L Lymphocytes % 49.1 H Monocytes % 8.1 Eosinophils % 0.8 D Basophils % 1.9 Medical Decision Making - Medical Decision Making 02/02/18 13:18 Sign-out received from outgoing Emergency Physician Dr. Welsh Pt interviewed and examined Ancillary studies reviewed Case discussed in detail with oncoming Emergency Physician including history, physical exam and ancillary studies. Pt well known to me. Has been endorsing feeling depressed. however, pt now feels much better. States that was feeling stressed at [facility]. Seen by psych. Cleared by psych. Pt feels much better and happier. I know this patient quite well, and pt is pleasant as her usual self. Will d/c patient home. Pt has some mild cough. Requesting antitussive. Will d/c her with meds. *DC/Admit/Observation/Transfer Diagnosis at time of Disposition: Manic disorder, recurrent episode, severe, with psychotic behavior - Discharge Dispostion Disposition: HOME Condition at time of disposition: Improved Decision to Admit order: No - Prescriptions Prescriptions: Benzonatate [Tessalon Pearls -] 100 mg PO TID PRN #21 capsule PRN Reason: Cough - Referrals - Patient Instructions Printed Discharge Instructions: DI for Bipolar Disorder Additional Instructions: Please continue to take your medications. Follow up with your doctor. - Post Discharge Activity Forms/Work/School Notes: My Personal Safety Plan
== END 2018-02-02 13:52 | disposition home or self-care (01) ==
LOC: JER 20:08
DX: F31.2 Bipolar disorder, current episode manic severe with psychotic features (principal)
CPT/HCPCS: 36415; 80053; 81003; 84439; 84443; 84703; 85025; 85610; 85730; 93005; 93010; 99283-25

== ENCOUNTER 2018-02-08 03:23 | Emergency (ER) | payer OTHER ==
--- NOTE | 2018-02-08 03:30 | PDOC ---
History of Present Illness - General Stated Complaint: ALLERGIC REACTION Time Seen by Provider: 02/08/18 03:25 - History of Present Illness Initial Comments: 02/08/18 03:30 52 yo F with h/o Bipolar disorder, and asthma who p/w abdominal bruising. Patient reports acute onset of skin bruising and pain following injection with Prednisone at [facility]. Patient seen at [facility] yesterday (02/07/18) for abdominal pain and "allergic reaction,". Patient denies N/V, KEARNEY, vision change, wheezing, dysphagia, hoarsness, cough, F ,C, CP, SOB, urinary complaints, abdominal pain, diarrhea, constipation, BPR, hematuria, lightheadedness, weakness, sensory changes. PMHx: as noted above ROS: as noted Allergies: Prednisone, Sulfa medications Past History - Past Medical History Allergies/Adverse Reactions: Allergies Allergy/AdvReac Type Severity Reaction Status Date / Time surjit Allergy Mild Verified 02/08/18 03:35 prednisone Allergy Verified 02/08/18 03:35 Sulfa (Sulfonamide Allergy Rash Verified 02/08/18 03:35 Antibiotics) [Sulfa(Sulfonamide Antibiotics)] Home Medications: Ambulatory Orders Fluticasone/Salmeterol [Advair 250-50 Diskus] 1 each IH BID 10/20/17 Quetiapine Fumarate [Seroquel] 100 mg PO DAILY #14 tablet 01/30/18 predniSONE [Deltasone -] 60 mg PO DAILY #12 tablet 01/30/18 Benzonatate [Tessalon Pearls -] 100 mg PO TID PRN #21 capsule 02/02/18 Anemia: No Asthma: Yes Cancer: No Cardiac Disorders: No CVA: No COPD: No CHF: No DVT: No Dementia: No Diabetes: No GI Disorders: No Disorders: No HTN: No Hypercholesterolemia: Yes Liver Disease: No Psychiatric Problems: Yes (Bipolar, suicidal ideations) Seizures: No Thyroid Disease: No - Surgical History Abdominal Surgery: No Appendectomy: No Cardiac Surgery: No Cholecystectomy: No Lung Surgery: No Neurologic Surgery: No Orthopedic Surgery: No - Immunization History Td Vaccination: Yes TDAP Vaccination: Yes Immunization Up to Date: Yes - Suicide/Smoking/Psychosocial Hx Smoking Status: No Smoking History: Never smoked Have you smoked in the past 12 months: No Number of Cigarettes Smoked Daily: 0 Cigars Per Day: 0 Hx Alcohol Use: No Drug/Substance Use Hx: No Substance Use Type: None Hx Substance Use Treatment: No Review of Systems - Review of Systems Comments:: 02/08/18 03:59 GENERAL/CONSTITUTIONAL: No fever or chills. No weakness. HEAD, EYES, EARS, NOSE AND THROAT: No change in vision. No ear pain or discharge. No sore throat. CARDIOVASCULAR: No chest pain or shortness of breath RESPIRATORY: No cough, wheezing, or hemoptysis. GASTROINTESTINAL: No nausea, vomiting, diarrhea or constipation. GENITOURINARY: No dysuria, frequency, or change in urination. MUSCULOSKELETAL: No joint or muscle swelling or pain. No neck or back pain. SKIN: + Skin bruising NEUROLOGIC: No headache, vertigo, loss of consciousness, or change in strength/ sensation. ENDOCRINE: No increased thirst. No abnormal weight change HEMATOLOGIC/LYMPHATIC: No anemia, easy bleeding, or history of blood clots. ALLERGIC/IMMUNOLOGIC: No hives or skin allergy. *Physical Exam - Physical Exam Comments: 02/08/18 03:59 GENERAL: Awake, alert, and fully oriented, in no acute distress HEAD: No signs of trauma, normocephalic, atraumatic EYES: PERRLA, EOMI, sclera anicteric, conjunctiva clear ENT: Hearing grossly normal, nares patent, oropharynx clear without exudates. Moist mucosa NECK: Normal ROM, supple, no lymphadenopathy, JVD, or masses LUNGS: No distress, speaks full sentences, clear to auscultation bilaterally HEART: Regular rate and rhythm, normal S1 and S2, no murmurs, rubs or gallops, peripheral pulses normal and equal bilaterally. ABDOMEN: + 2x3 cm area of periumbilical ecchymosis, and ttp. Absent warmth, erythema, streaking, fluctuance, induration. Soft, nontender, normoactive bowel sounds, NDS. No guarding, no rebound, no rigidity. No masses. Neg CVA ttp. EXTREMITIES : Normal inspection, Normal range of motion, no edema. No clubbing or cyanosis. SKIN: Warm, Dry, normal turgor, no rashes or lesions noted Medical Decision Making - Medical Decision Making 02/08/18 04:40 52 yo F with h/o Bipolar disorder, and asthma who p/w abdominal bruising. VSS, AF, A&OX3. + 2x3 cm area of periumbilical ecchymosis. No evidence of fluctuance , induration, warmth/erythema. Low suspicion cellulitis or abscess. No evidence of uritcarial reaction or airway compromise or systemic s/s of anaphylaxis. Patient able to tolerate oral secretions, with absent muffled voice or hoarseness, dysphagia, wheezing, cough, N/V. Low suspicion acute asthma exacerbation, lungs CTA BL. Pain control and reassss. ED Course: Lilly 02/08/18 05:47 Stable for d/c with return precautions. *DC/Admit/Observation/Transfer Diagnosis at time of Disposition: Superficial bruising of abdominal wall Qualifiers: Encounter type: initial encounter Qualified Code(s): S30.1XXA - Contusion of abdominal wall, initial encounter - Discharge Dispostion Condition at time of disposition: Stable - Referrals - Patient Instructions Printed Discharge Instructions: DI for Abdominal Pain-Adult Additional Instructions: Please return to the emergency department with any new or worsening symptoms or concerns. Please follow up with your primary care physician within 72 hours. - Post Discharge Activity - Attestations Physician Attestion: 02/08/18 04:00 I attest to the information provided in this note.
[2018-02-08 03:57] VITALS: BP 118/76; PULSE 98; TEMP 98.6; BMI 45.7
[2018-02-08] MEDS ORDERED: IBUPROFEN 400 MG TABLET (FP) PO ONE ×2 (04:37→05:39)
--- NOTE | 2018-02-08 05:09 | PDOC ---
Attending Attestation - Resident Resident Name: Kevin Fabian - ED Attending Attestation I have performed the following: I have examined & evaluated the patient, The case was reviewed & discussed with the resident, I agree w/resident's findings & plan, Exceptions are as noted - HPI HPI: 02/08/18 05:16 52y F hx of bipolar, asthma, presents with abdominal bruising. was at [facility] earlier and got an injection into her abdomen and noted some brusiing and swelling that she wanted to be evaluated for no sob, n/v, fever/chills on exam pt has 2x2cm ecchymosis suspect secondary to injection will dc with pmd fu - Physicial Exam PE: 02/08/18 05:39 see above - Medical Decision Making 02/08/18 05:39 see above
== END 2018-02-08 05:52 | disposition home or self-care (01) ==
LOC: JER 03:23
DX: S30.1XXA Contusion of abdominal wall, initial encounter (principal); Y84.8 Other medical procedures as the cause of abnormal reaction of the patient, or of later complication, without mention of misadventure at the time of the procedure; Y92.9 Unspecified place or not applicable; F31.9 Bipolar disorder, unspecified; E78.00 Pure hypercholesterolemia, unspecified
CPT/HCPCS: 99281-25

== ENCOUNTER 2018-02-22 04:53 | Emergency (ER) | payer OTHER ==
[2018-02-22] MEDS ORDERED: PANTOPRAZOLE 40 MG TABLET (FP) PO ONE (05:31)
[2018-02-22] MEDS ORDERED: PANTOPRAZOLE 40 MG TABLET (FP) ONE (05:45)
--- NOTE | 2018-02-22 05:59 | PDOC ---
History of Present Illness - General Chief Complaint: Pain Stated Complaint: HEARTBURN Time Seen by Provider: 02/22/18 05:25 History Source: Patient Exam Limitations: No Limitations Past History - Past Medical History Allergies/Adverse Reactions: Allergies Allergy/AdvReac Type Severity Reaction Status Date / Time surjit Allergy Mild Verified 02/08/18 03:35 prednisone Allergy Verified 02/08/18 03:35 Sulfa (Sulfonamide Allergy Rash Verified 02/08/18 03:35 Antibiotics) [Sulfa(Sulfonamide Antibiotics)] Home Medications: Ambulatory Orders Fluticasone/Salmeterol [Advair 250-50 Diskus] 1 each IH BID 10/20/17 Quetiapine Fumarate [Seroquel] 100 mg PO DAILY #14 tablet 01/30/18 predniSONE [Deltasone -] 60 mg PO DAILY #12 tablet 01/30/18 Benzonatate [Tessalon Pearls -] 100 mg PO TID PRN #21 capsule 02/02/18 Anemia: No Asthma: Yes Cancer: No Cardiac Disorders: No CVA: No COPD: No CHF: No DVT: No Dementia: No Diabetes: No GI Disorders: No Disorders: No HTN: No Hypercholesterolemia: Yes Liver Disease: No Psychiatric Problems: Yes (Bipolar, suicidal ideations) Seizures: No Thyroid Disease: No - Surgical History Abdominal Surgery: No Appendectomy: No Cardiac Surgery: No Cholecystectomy: No Lung Surgery: No Neurologic Surgery: No Orthopedic Surgery: No - Immunization History Td Vaccination: Yes TDAP Vaccination: Yes Immunization Up to Date: Yes - Suicide/Smoking/Psychosocial Hx Smoking Status: No Smoking History: Never smoked Have you smoked in the past 12 months: No Number of Cigarettes Smoked Daily: 0 Cigars Per Day: 0 Hx Alcohol Use: No Drug/Substance Use Hx: No Substance Use Type: None Hx Substance Use Treatment: No *Physical Exam - Vital Signs Last Vital Signs Temp Pulse Resp BP Pulse Ox 97.8 F 95 H 19 135/109 H 100 02/22/18 05:00 02/22/18 05:00 02/22/18 05:00 02/22/18 05:00 02/22/18 05:00 - Physical Exam General Appearance: No: Apparent Distress Respiratory/Chest: positive: Lungs Clear, Normal Breath Sounds. negative: Respiratory Distress Cardiovascular: positive: Regular Rhythm, Regular Rate, S1, S2. negative: Murmur Gastrointestinal/Abdominal: positive: Normal Bowel Sounds, Soft. negative: Tender, Distended, Guarding, Rebound Neurologic: positive: Fully Oriented, Alert, Normal Mood/Affect Moderate Sedation - Procedure Monitoring Vital Signs: Procedure Monitoring Vital Signs Temperature 97.8 F 02/22/18 05:00 Pulse Rate 95 H 02/22/18 05:00 Respiratory Rate 19 02/22/18 05:00 Blood Pressure 135/109 H 02/22/18 05:00 O2 Sat by Pulse Oximetry (%) 100 02/22/18 05:00 ED Treatment Course - Medications Given in the ED: ED Medications Discontinued Medications Generic Name Dose Route Start Last Admin Trade Name Freq PRN Reason Stop Dose Admin Pantoprazole Sodium 40 mg 02/22/18 05:31 02/22/18 05:47 Protonix - PO 02/22/18 05:32 40 mg ONCE ONE Administration Medical Decision Making - Medical Decision Making 52 y/o F hx of asthma, GERD, bipolar presents with having heartburn after eating sausage and peppers last night around 9 PM. Patient laid down right after eating as she thought it would help, but it only made her heartburn worse. Normally takes Omeprazole for her GERD, but ran out of the medication. Also did not have Tums at home. Symptoms feel like her typical GERD. Denies fever, sob, cp, abd pain, n/v/d, black/bloody stools, S/H ideation. Denies smoking or drug use. GERD - Given Protonix Patient does not rx for medication; states she will get it OTC Stable for d/c 02/22/18 05:53 *DC/Admit/Observation/Transfer Diagnosis at time of Disposition: GERD (gastroesophageal reflux disease) Qualifiers: Esophagitis presence: esophagitis presence not specified Qualified Code(s): K21.9 - Gastro-esophageal reflux disease without esophagitis - Discharge Dispostion Disposition: HOME Condition at time of disposition: Stable Decision to Admit order: No - Referrals Referrals: Brittney Hinkle [Primary Care Provider] - 3 days - Patient Instructions Printed Discharge Instructions: DI for Gastroesophageal Reflux Disease (GERD), GERD Diet Additional Instructions: Thank you for choosing [facility]. It was a pleasure taking care of you. Avoid laying flat right after eating. Take Omeprazole for your acid reflux Follow-up with your primary care doctor in 2-3 days. Return to the Emergency Department if your symptoms worsen or persist, you have fever, shortness of breath, chest pain, severe abdominal pain, vomiting, black/ bloody stools or other concerning symptoms. - Post Discharge Activity
[2018-02-22 06:07] VITALS: BMI 45.7
[2018-02-22 06:33] VITALS: BP 118/71; PULSE 68; TEMP 98.1
== END 2018-02-22 06:45 | disposition home or self-care (01) ==
LOC: JER 04:53
DX: K21.9 Gastro-esophageal reflux disease without esophagitis (principal); E78.00 Pure hypercholesterolemia, unspecified; F31.9 Bipolar disorder, unspecified; J45.909 Unspecified asthma, uncomplicated
CPT/HCPCS: 99281-25

== ENCOUNTER 2018-03-13 19:48 | Emergency (ER) | payer OTHER ==
[2018-03-13 19:56] VITALS: BMI 51.2
--- NOTE | 2018-03-13 20:06 | PDOC ---
Rapid Medical Evaluation Chief Complaint: Allergic Reaction Time Seen by Provider: 03/13/18 20:02 Medical Evaluation: Allergies Allergy/AdvReac Type Severity Reaction Status Date / Time surjit Allergy Mild Verified 02/08/18 03:35 prednisone Allergy Verified 02/08/18 03:35 Sulfa (Sulfonamide Allergy Rash Verified 02/08/18 03:35 Antibiotics) [Sulfa(Sulfonamide Antibiotics)] Vital Signs Temp Pulse Resp BP Pulse Ox 98.4 F 93 H 20 128/84 100 03/13/18 19:53 03/13/18 19:53 03/13/18 19:53 03/13/18 19:53 03/13/18 19:53 03/13/18 20:02 I have performed a brief in-person evaluation of this patient. The patient presents with a chief complaint of: left facial swelling Pertinent physical exam findings: Left periorbital swelling. Left submandibular swelling. lungs CTAB. No stridor. Speaking full sentences. I have ordered the following: labs, urine The patient will proceed to the ED for further evaluation. Discharge Disposition - Diagnosis Left facial swelling - Referrals - Patient Instructions - Post Discharge Activity
--- NOTE | 2018-03-13 22:49 | PDOC ---
History of Present Illness - General Chief Complaint: Allergic Reaction Stated Complaint: ALLERGIC REACTION Time Seen by Provider: 03/13/18 20:02 - History of Present Illness Initial Comments: 03/13/18 22:48 52-year-old female with left-sided periorbital swelling and facial swelling times one day without any precipitating traumatic event or inciting ALLERGIC reaction Past History - Past Medical History Allergies/Adverse Reactions: Allergies Allergy/AdvReac Type Severity Reaction Status Date / Time surjit Allergy Mild Verified 02/08/18 03:35 prednisone Allergy Verified 02/08/18 03:35 Sulfa (Sulfonamide Allergy Rash Verified 02/08/18 03:35 Antibiotics) [Sulfa(Sulfonamide Antibiotics)] Home Medications: Ambulatory Orders Fluticasone/Salmeterol [Advair 250-50 Diskus] 1 each IH BID 10/20/17 Quetiapine Fumarate [Seroquel] 100 mg PO DAILY #14 tablet 01/30/18 Anemia: No Asthma: Yes Cancer: No Cardiac Disorders: No CVA: No COPD: No CHF: No DVT: No Dementia: No Diabetes: No GI Disorders: No Disorders: No HTN: No Hypercholesterolemia: Yes Liver Disease: No Psychiatric Problems: Yes (Bipolar, suicidal ideations) Seizures: No Thyroid Disease: No - Surgical History Abdominal Surgery: No Appendectomy: No Cardiac Surgery: No Cholecystectomy: No Lung Surgery: No Neurologic Surgery: No Orthopedic Surgery: No - Immunization History Td Vaccination: Yes TDAP Vaccination: Yes Immunization Up to Date: Yes - Suicide/Smoking/Psychosocial Hx Smoking Status: No Smoking History: Never smoked Have you smoked in the past 12 months: No Number of Cigarettes Smoked Daily: 0 Cigars Per Day: 0 Hx Alcohol Use: No Drug/Substance Use Hx: No Substance Use Type: None Hx Substance Use Treatment: No Review of Systems - Review of Systems Integumentary: Yes: See HPI *Physical Exam - Vital Signs Last Vital Signs Temp Pulse Resp BP Pulse Ox 98.4 F 93 H 20 128/84 100 03/13/18 19:53 03/13/18 19:53 03/13/18 19:53 03/13/18 19:53 03/13/18 19:53 - Physical Exam Comments: 03/13/18 22:48 HEAD: NC/AT EYES: Conjuntiva clear; there is moderate left periorbital swelling with warmth and no erythema or focal fluctuance. There is left periauricular adenopathy with associated tenderness Ears: Canals and TM's normal NOSE: No d/c THROAT: Moist mucous membrances, oral pharanx clear, uvula midline NECK: Supple without adenopathy CARDIAC: S1 S2 LUNGS: CTA Full and Equal breath sounds ABDOMEN: Soft NT ND MS: Full ROM in all joints without edema NEUROLOGIC: No gross sensory or motor deficits, NVID SKIN: Normal color and temperature no lesions or rashes Moderate Sedation - Procedure Monitoring Vital Signs: Procedure Monitoring Vital Signs Temperature 98.4 F 03/13/18 19:53 Pulse Rate 93 H 03/13/18 19:53 Respiratory Rate 20 03/13/18 19:53 Blood Pressure 128/84 03/13/18 19:53 O2 Sat by Pulse Oximetry (%) 100 03/13/18 19:53 *DC/Admit/Observation/Transfer Diagnosis at time of Disposition: Left facial swelling - Referrals Referrals: Brittney Hinkle [Primary Care Provider] - - Patient Instructions - Post Discharge Activity
--- NOTE | 2018-03-13 23:19 | PDOC ---
*Physical Exam - Vital Signs Last Vital Signs Temp Pulse Resp BP Pulse Ox 98.4 F 93 H 20 128/84 100 03/13/18 19:53 03/13/18 19:53 03/13/18 19:53 03/13/18 19:53 03/13/18 19:53 ED Treatment Course - LABORATORY CBC & Chemistry Diagram: 03/14/18 00:47 03/14/18 00:47 Medical Decision Making - Medical Decision Making Patient signed out to me by LV Abram Raymond Patient resting in NAD; noted with L periorbital swelling along with precauricular lymphadenopathy ; no proptosis or chemosis noted; EOMI; patient denies double vision or blurred vision Patient pending labs and CT face 03/13/18 23:19 CT face: IMPRESSION: 1. Left preseptal/facial cellulitis without evidence of an abscess Findings concerning for preseptal cellulitis Will start patient on Augmentin Otherwise appears well; stable for dc 03/14/18 03:34 *DC/Admit/Observation/Transfer Diagnosis at time of Disposition: Periorbital cellulitis of left eye - Discharge Dispostion Disposition: HOME Condition at time of disposition: Good Decision to Admit order: No - Prescriptions Prescriptions: Amoxicillin/Potassium Clav [Augmentin 875-125 Tablet] 1 each PO BID #14 tablet - Referrals Referrals: Brittney Hinkle [Primary Care Provider] - 2 Days - Patient Instructions Printed Discharge Instructions: DI for Cellulitis -- Adult Additional Instructions: Thank you for choosing [facility]. It was a pleasure taking care of you. You were seen here for infection of soft tissues around the left orbit You were started on Augmentin - please take as prescribed Follow-up with your PCP in 2-3 days. Return to the Emergency Department if your symptoms worsen or persist, you have fever, visual changes, pain on eye movement, bulging of eye, double vision or other concerning symptoms. - Post Discharge Activity
[2018-03-14 00:58] LABS: URINE APPEARANCE CLOUDY; URINE BILIRUBIN NEGATIVE (<2.0 mg/dL); URINE COLOR LTYELLOW; URINE GLUCOSE (UA) NEGATIVE (NEGATIVE); URINE KETONE NEGATIVE (NEGATIVE); URINE LEUK ESTERASE NEGATIVE (NEGATIVE); URINE NITRITE NEGATIVE (NEGATIVE); URINE PROTEIN NEGATIVE (NEGATIVE); URINE UROBILINOGEN NEGATIVE mg/dL (0.2-1.0)
[2018-03-14 01:00] LABS: HCG,QUALITATIVE URINE Negative
[2018-03-14 01:21] LABS: BASO % 1.2 % (0-2.0); EOS % 2.5 % (0-4.5); HEMOGLOBIN 12.7 GM/dL (10.7-15.3); LYMPH % 40.4 % (8-40); MCHC 33.4 g/dl (32.0-36.0); MEAN PLT VOLUME 8.6 fl (7.5-11.1); MONO % 8.4 % (3.8-10.2); NEUT % 47.5 % (42.8-82.8); PLATELET COUNT 457 K/MM3 (134-434); RDW 16.2 % (11.6-15.6); WHITE BLOOD COUNT 8.7 K/mm3 (4.0-10.0)
[2018-03-14 01:43] LABS: ALBUMIN 2.6 g/dl (3.4-5.0); ALK PHOS 118 U/L (45-117); ANION GAP 8 MMOL/L (8-16); BILIRUBIN,TOTAL 0.2 mg/dL (0.2-1); BLOOD UREA NITROGEN 4 mg/dL (7-18); CALCIUM 8.4 mg/dL (8.5-10.1); CHLORIDE 103 mmol/L (98-107); CO2 27 mmol/L (21-32); CREATININE 0.7 mg/dL (0.55-1.3); GLUCOSE,RANDOM 94 mg/dL (74-106); POTASSIUM 3.7 mmol/L (3.5-5.1); SGOT/AST 12 U/L (15-37); SGPT/ALT 15 U/L (13-61); SODIUM 138 mmol/L (136-145)
[2018-03-14] MEDS ORDERED: AMOX TR/POT CLAV 875MG/125MG TABLETS (FP) PO ONE (03:33)
[2018-03-14] MEDS ORDERED: AMOX TR/POT CLAV 875MG/125MG TABLETS (FP) ONE (03:47)
[2018-03-14 04:02] VITALS: BP 118/87; PULSE 79; TEMP 98.3
== END 2018-03-14 04:00 | disposition home or self-care (01) ==
LOC: JERFT 19:48 → JER 19:48
DX: R22.0 Localized swelling, mass and lump, head (principal); F31.9 Bipolar disorder, unspecified; E78.00 Pure hypercholesterolemia, unspecified; J45.909 Unspecified asthma, uncomplicated; R45.851 Suicidal ideations
CPT/HCPCS: 36415; 70487-TC; 80053; 81003; 84703; 85025; 99282-25

== ENCOUNTER → 2018-04-07 | Emergency (ER) | payer OTHER ==
[~2018-04-07] MED LIST changes: -ALBUTEROL SO4 0.083% IH SOL 2.5 MG/3 ML VIAL.NEB. NEB ONE; +MAGNESIUM 1GM/D5W - 1 GM/100 ML IVPB IVPB ONE; +SODIUM CHLORIDE 1,000 ML IV STA; +TERBUTALINE SULFATE 1 MG/1 ML VIAL SQ ONE; -predniSONE 20 MG TABLET (UD) ONE; -predniSONE 20 MG TABLET (UD) PO ONE
--- NOTE | 2018-04-07 02:21 | PDOC ---
History of Present Illness - General Stated Complaint: ASTHMA Time Seen by Provider: 04/07/18 01:50 History Source: Patient, Old Records Exam Limitations: No Limitations - History of Present Illness Initial Comments: 04/07/18 02:15 HISTORY OF PRESENT ILLNESS: This is a 52-year-old woman past medical history of bipolar disorder and asthma presents emergency department for 2 days of audible wheezing. Patient reports feeling tightness with her respirations. Patient reports she's had multiple intubations for her asthma most recently approximately 5 years ago at [facility]. Prior to coming to the hospital patient use her albuterol pump twice and 2 nebulizer treatments with minimal relief of wheezing. No recent travel or sick contacts. PAST MEDICAL HISTORY: see HPI SURGICAL HISTORY: Denies ALLERGIES: prednisone->psychosis, sulfa REVIEW OF SYSTEMS General/Constitutional: Denies fever or chills. Denies weakness, weight change. HEENT: Denies change in vision. Denies ear pain or discharge. Denies sore throat. Cardiovascular: Denies chest pain or shortness of breath. Respiratory: see HPI Gastrointestinal: Denies nausea, vomiting, diarrhea or constipation. Denies rectal bleeding. Genitourinary: Denies dysuria, frequency, or change in urination. Musculoskeletal: Denies joint or muscle swelling or pain. Denies neck or back pain. Skin and breasts: Denies rash or easy bruising. Neurologic: Denies headache, vertigo, loss of consciousness, or loss of sensation. Psychiatric: Denies depression or anxiety. Endocrine: Denies increased thirst. Denies abnormal weight change. Hematologic/Lymphatic: Denies anemia, easy bleeding, or history of blood clots. Allergic/Immunologic: Denies hives or skin allergy. Denies latex allergy. PHYSICAL EXAM General Appearance: Well-appearing, appropriately dressed. No apparent distress , no intoxication. HEENT: EOMI, PERRLA, normal ENT inspection, normal voice, TMs normal, pharynx normal. No conjunctival pallor. No photophobia, scleral icterus. (+) maxillary sinus tenderness Neck: Supple. Trachea midline. No tenderness, rigidity, carotid bruit, stridor , lymphadenopathy, or thyromegaly. Respiratory/Chest: No chest tenderness or accessory muscle use. Scattered wheezes noted on expiration. Patient is speaking in full sentences without difficulty. Cardiovascular: RRR. S1, S2. No JVD, murmur, bradycardia, tachycardia. Integumentary: Appropriate color, dry, warm. No cyanosis, erythema, jaundice or rash Past History - Past Medical History Allergies/Adverse Reactions: Allergies Allergy/AdvReac Type Severity Reaction Status Date / Time surjit Allergy Mild Verified 02/08/18 03:35 prednisone Allergy Verified 02/08/18 03:35 Sulfa (Sulfonamide Allergy Rash Verified 02/08/18 03:35 Antibiotics) [Sulfa(Sulfonamide Antibiotics)] Home Medications: Ambulatory Orders Fluticasone/Salmeterol [Advair 250-50 Diskus] 1 each IH BID 10/20/17 Quetiapine Fumarate [Seroquel] 100 mg PO DAILY #14 tablet 01/30/18 Amoxicillin/Potassium Clav [Augmentin 875-125 Tablet] 1 each PO BID #14 tablet 03/14/18 Azithromycin [Zithromax Tri-Leo (3 DAYS) -] 500 mg PO DAILY #3 tablet 04/07/18 Anemia: No Asthma: Yes Cancer: No Cardiac Disorders: No CVA: No COPD: No CHF: No DVT: No Dementia: No Diabetes: No GI Disorders: No Disorders: No HTN: No Hypercholesterolemia: Yes Liver Disease: No Psychiatric Problems: Yes (Bipolar, suicidal ideations) Seizures: No Thyroid Disease: No - Surgical History Abdominal Surgery: No Appendectomy: No Cardiac Surgery: No Cholecystectomy: No Lung Surgery: No Neurologic Surgery: No Orthopedic Surgery: No - Immunization History Td Vaccination: Yes TDAP Vaccination: Yes Immunization Up to Date: Yes - Suicide/Smoking/Psychosocial Hx Smoking Status: No Smoking History: Never smoked Have you smoked in the past 12 months: No Number of Cigarettes Smoked Daily: 0 Cigars Per Day: 0 Hx Alcohol Use: No Drug/Substance Use Hx: No Substance Use Type: None Hx Substance Use Treatment: No Respiratory Specific PMHX - Complaint Specific PMHX Angina: No Bronchitis: Yes Pneumonia: No Pulmonary Embolus: No TB (Tuberculosis): No Medical Decision Making - Medical Decision Making 04/07/18 02:19 A/P: 52-year-old woman past medical history of asthma and bipolar disorder with wheezing for 2 days Scattered wheezes present on expiration Speaking in full sentences No accessory muscle use noted Maxillary sinus tenderness noted DuoNeb's Magnesium 1 g IV Normal saline 1 L IV Terbutaline 0.25 mg SQ Reassess 04/07/18 03:22 Repeat lung exam reveals clear lungs without wheezing. I will continue to monitor patient after receiving terbutaline. *DC/Admit/Observation/Transfer Diagnosis at time of Disposition: Asthma exacerbation Qualifiers: Asthma severity: mild Asthma persistence: intermittent Qualified Code(s): J45.21 - Mild intermittent asthma with (acute) exacerbation - Discharge Dispostion Condition at time of disposition: Fair Decision to Admit order: No - Prescriptions Prescriptions: Azithromycin [Zithromax Tri-Leo (3 DAYS) -] 500 mg PO DAILY #3 tablet - Referrals Referrals: Brittney Hinkle [Primary Care Provider] - - Patient Instructions Printed Discharge Instructions: Asthma -- Adult - Post Discharge Activity
[2018-04-07] MEDS: ALBUTEROL SO4 2.5/IPRATROPIUM 0.5 INH SOL 3 ML VIAL.NEB. NEB SCH ×4 (02:28→02:47)
[2018-04-07 02:51] VITALS: BP 126/78; PULSE 89; TEMP 98.5; BMI 64.0
== END | disposition left against medical advice (07) ==
LOC: JER 01:31
PROC: 3E0F7GC Introduction of Other Therapeutic Substance into Respiratory Tract, Via Natural or Artificial Opening (ICD-10-PCS; principal; 2018-04-07)
PROC: 3E0337Z Introduction of Electrolytic and Water Balance Substance into Peripheral Vein, Percutaneous Approach (ICD-10-PCS; 2018-04-07)
PROC: 3E033GC Introduction of Other Therapeutic Substance into Peripheral Vein, Percutaneous Approach (ICD-10-PCS; 2018-04-07)
PROC: 3E023GC Introduction of Other Therapeutic Substance into Muscle, Percutaneous Approach (ICD-10-PCS; 2018-04-07)
DX: J45.21 Mild intermittent asthma with (acute) exacerbation (principal); F31.9 Bipolar disorder, unspecified
CPT/HCPCS: 94640; 96361; 96365; 96372; 99281-25; J7030

== ENCOUNTER 2018-04-08 02:11 | Emergency (ER) | payer OTHER ==
--- NOTE | 2018-04-08 02:40 | PDOC ---
History of Present Illness - History of Present Illness Initial Comments: 04/08/18 02:40 Ms. Mcknight is a 52 yo female w/ pmh of bipolar disorder and asthma who presents for evaluation of wheezes today with headache. Patient reports she did not use inhaler at home today however decided to present to ER as she had headache. Patient took motrin for her headache and reports 1 instance of diarrhea following this. Patient reports she took motrin on empty stomach and believes this may be a causative factor. Of note, patient was evaluated yesterday for wheezing and noted to have clear lungs after duonebs, magnesium, and terbutaline. Patient has been intubated in the past for her asthma (most recent 5 years ago). The patient denies chest pain, shortness of breath, and dizziness. Denies fever , chills, nausea, vomit, diarrhea and constipation. Denies dysuria, frequency, urgency and hematuria. <Norman Kahn - Last Filed: 04/08/18 03:32> <Babs Welsh - Last Filed: 04/08/18 03:50> - General Chief Complaint: Headache Stated Complaint: headache & asthma Time Seen by Provider: 04/08/18 02:39 Past History - Past Medical History Anemia: No Asthma: Yes Cancer: No Cardiac Disorders: No CVA: No COPD: No CHF: No DVT: No Dementia: No Diabetes: No GI Disorders: No Disorders: No HTN: No Hypercholesterolemia: Yes Liver Disease: No Psychiatric Problems: Yes (Bipolar, suicidal ideations) Seizures: No Thyroid Disease: No - Surgical History Abdominal Surgery: No Appendectomy: No Cardiac Surgery: No Cholecystectomy: No Lung Surgery: No Neurologic Surgery: No Orthopedic Surgery: No - Immunization History Td Vaccination: Yes TDAP Vaccination: Yes Immunization Up to Date: Yes - Suicide/Smoking/Psychosocial Hx Smoking Status: No Smoking History: Never smoked Have you smoked in the past 12 months: No Number of Cigarettes Smoked Daily: 0 Cigars Per Day: 0 Hx Alcohol Use: No Drug/Substance Use Hx: No Substance Use Type: None Hx Substance Use Treatment: No <Norman Kahn - Last Filed: 04/08/18 03:32> <Babs Welsh - Last Filed: 04/08/18 03:50> - Past Medical History Allergies/Adverse Reactions: Allergies Allergy/AdvReac Type Severity Reaction Status Date / Time surjit Allergy Mild Verified 04/08/18 02:44 prednisone Allergy Verified 04/08/18 02:44 Sulfa (Sulfonamide Allergy Rash Verified 04/08/18 02:44 Antibiotics) [Sulfa(Sulfonamide Antibiotics)] Home Medications: Ambulatory Orders Fluticasone/Salmeterol [Advair 250-50 Diskus] 1 each IH BID 10/20/17 Quetiapine Fumarate [Seroquel] 100 mg PO DAILY #14 tablet 01/30/18 Amoxicillin/Potassium Clav [Augmentin 875-125 Tablet] 1 each PO BID #14 tablet 03/14/18 Azithromycin [Zithromax Tri-Leo (3 DAYS) -] 500 mg PO DAILY #3 tablet 04/07/18 Review of Systems - Review of Systems Comments:: 04/08/18 02:40 GENERAL/CONSTITUTIONAL: No fever or chills. No weakness. HEAD, EYES, EARS, NOSE AND THROAT: No change in vision. No ear pain or discharge. No sore throat. CARDIOVASCULAR: No chest pain or shortness of breath RESPIRATORY: +Mild wheezes today. No cough, or hemoptysis. GASTROINTESTINAL: +1 episode of diarrhea today. No nausea, vomiting, or constipation. GENITOURINARY: No dysuria, frequency, or change in urination. MUSCULOSKELETAL: No joint or muscle swelling or pain. No neck or back pain. SKIN: No rash NEUROLOGIC: +Current headache. No vertigo, loss of consciousness, or change in strength/sensation. ENDOCRINE: No increased thirst. No abnormal weight change HEMATOLOGIC/LYMPHATIC: No anemia, easy bleeding, or history of blood clots. ALLERGIC/IMMUNOLOGIC: No hives or skin allergy. <Norman Kahn - Last Filed: 04/08/18 03:32> *Physical Exam - Physical Exam Comments: 04/08/18 02:40 GENERAL: Awake, alert, and fully oriented, in no acute distress HEAD: No signs of trauma, normocephalic, atraumatic EYES: PERRLA, EOMI, sclera anicteric, conjunctiva clear ENT: Auricles normal inspection, hearing grossly normal, nares patent, oropharynx clear without exudates. Moist mucosa NECK: Normal ROM, supple, no lymphadenopathy, JVD, or masses LUNGS: +Mild wheezes appreciated. No distress, speaks full sentences HEART: Regular rate and rhythm, normal S1 and S2, no murmurs, rubs or gallops, peripheral pulses normal and equal bilaterally. ABDOMEN: Soft, nontender, normoactive bowel sounds. No guarding, no rebound. No masses EXTREMITIES: Normal inspection, Normal range of motion, no edema. No clubbing or cyanosis. NEUROLOGICAL: Cranial nerves II through XII grossly intact. Normal speech, normal gait, no focal sensorimotor deficits SKIN: Warm, Dry, normal turgor, no rashes or lesions noted. <Norman Kahn - Last Filed: 04/08/18 03:32> - Vital Signs Last Vital Signs Temp Pulse Resp BP Pulse Ox 98.0 F 64 19 137/85 98 04/08/18 02:11 04/08/18 02:11 04/08/18 02:11 04/08/18 02:11 04/08/18 02:11 <Babs Welsh - Last Filed: 04/08/18 03:50> Moderate Sedation - Procedure Monitoring Vital Signs: Procedure Monitoring Vital Signs Temperature 98.0 F 04/08/18 02:11 Pulse Rate 64 04/08/18 02:11 Respiratory Rate 19 04/08/18 02:11 Blood Pressure 137/85 04/08/18 02:11 O2 Sat by Pulse Oximetry (%) 98 04/08/18 02:11 <Babs Welsh - Last Filed: 04/08/18 03:50> Medical Decision Making - Medical Decision Making 04/08/18 03:11 Ms. Mcknight is a 52 yo female w/ pmh as described who presents for evaluation of headache and asthma symptoms. After initial evaluation unable to find patient to deliver medications. 04/08/18 03:32 Patient noted to have eloped. <Norman aKhn - Last Filed: 04/08/18 03:32> *DC/Admit/Observation/Transfer <Norman Kahn - Last Filed: 04/08/18 03:32> <Babs Welsh - Last Filed: 04/08/18 03:50> Diagnosis at time of Disposition: Eloped, Asthma - Discharge Dispostion Disposition: ELOPED Condition at time of disposition: Fair - Referrals Referrals: Brittney Hinkle [Primary Care Provider] - - Patient Instructions - Post Discharge Activity
[2018-04-08 02:44] VITALS: BP 137/85; PULSE 64; TEMP 98; BMI 45.7
--- NOTE | 2018-04-08 02:54 | PDOC ---
Attending Attestation - Resident Resident Name: Norman Kahn - ED Attending Attestation I have performed the following: I have examined & evaluated the patient, The case was reviewed & discussed with the resident, I agree w/resident's findings & plan - HPI HPI: 04/08/18 03:09 Pt comes with complaint of asthma exac, and a slight headache. - Physicial Exam PE: 04/08/18 02:53 Pt returns from yesterday for her asthma. She walked out yesterday with her IV line and she checked into [facility]. She was released from there and comes here now. - Medical Decision Making 04/08/18 03:10 Tylenol in the ER and duoneb and terbutaline ordered. Pt ambulating about the ER; we are looking for her to give her the meds. 04/08/18 03:13 Pt seems to have eloped.
[2018-04-08] MEDS ORDERED: TERBUTALINE SULFATE 1 MG/1 ML VIAL SQ ONE (02:55)
[2018-04-08] MEDS ORDERED: ALBUTEROL SO4 2.5/IPRATROPIUM 0.5 INH SOL 3 ML VIAL.NEB. NEB ONE (02:55)
[2018-04-08] MEDS ORDERED: ACETAMINOPHEN 500 MG TABLET (FP) PO ONE (02:56)
== END 2018-04-08 03:30 | disposition left against medical advice (07) ==
LOC: JER 02:11
DX: J45.909 Unspecified asthma, uncomplicated (principal); R51 Headache
CPT/HCPCS: 99281-25

== ENCOUNTER → 2018-04-11 | Emergency (ER) | payer OTHER ==
[~2018-04-11] MED LIST changes: -ALBUTEROL SO4 2.5/IPRATROPIUM 0.5 INH SOL 3 ML VIAL.NEB. NEB ONE; -MAGNESIUM 1GM/D5W - 1 GM/100 ML IVPB IVPB ONE; -SODIUM CHLORIDE 1,000 ML IV STA; -TERBUTALINE SULFATE 1 MG/1 ML VIAL SQ ONE
--- NOTE | 2018-04-11 00:59 | PDOC ---
Attending Attestation - Resident Resident Name: Sam Duval - ED Attending Attestation I have performed the following: I have examined & evaluated the patient, The case was reviewed & discussed with the resident, I agree w/resident's findings & plan - HPI HPI: 04/11/18 06:01 52 yo with complaints of int abdominal pain - Physicial Exam PE: 04/11/18 06:03 agree with residents exam - Medical Decision Making 04/11/18 06:03 pt eloped prior to further evaluation
[2018-04-11 01:02] VITALS: BP 174/77; PULSE 74; TEMP 98.2; BMI 45.7
--- NOTE | 2018-04-11 06:38 | PDOC ---
History of Present Illness - General Chief Complaint: Pain Stated Complaint: ABD PAIN Time Seen by Provider: 04/11/18 00:56 History Source: Patient Exam Limitations: No Limitations - History of Present Illness Initial Comments: 04/11/18 06:38 Patient is a 52F with history bipolar disorder and asthma here today complaining of constipation for the past four days. Patient states that she also has a minor headache and is asking for tylenol. Denies fevers, chills. Denies chest pain and shortness of breath. Patient states that she had several episodes of diarrhea before becoming constipated. Endorses an epigastric pain. Patient endorses a small amount of vomiting after eating a large meal at [employer]. Past History - Past Medical History Allergies/Adverse Reactions: Allergies Allergy/AdvReac Type Severity Reaction Status Date / Time surjit Allergy Mild Verified 04/11/18 00:59 prednisone Allergy Verified 04/11/18 00:59 Sulfa (Sulfonamide Allergy Rash Verified 04/11/18 00:59 Antibiotics) [Sulfa(Sulfonamide Antibiotics)] Home Medications: Ambulatory Orders Fluticasone/Salmeterol [Advair 250-50 Diskus] 1 each IH BID 10/20/17 Quetiapine Fumarate [Seroquel] 100 mg PO DAILY #14 tablet 01/30/18 Amoxicillin/Potassium Clav [Augmentin 875-125 Tablet] 1 each PO BID #14 tablet 03/14/18 Azithromycin [Zithromax Tri-Leo (3 DAYS) -] 500 mg PO DAILY #3 tablet 04/07/18 Anemia: No Asthma: Yes Cancer: No Cardiac Disorders: No CVA: No COPD: No CHF: No DVT: No Dementia: No Diabetes: No GI Disorders: No Disorders: No HTN: No Hypercholesterolemia: Yes Liver Disease: No Psychiatric Problems: Yes (Bipolar, suicidal ideations) Seizures: No Thyroid Disease: No - Surgical History Abdominal Surgery: No Appendectomy: No Cardiac Surgery: No Cholecystectomy: No Lung Surgery: No Neurologic Surgery: No Orthopedic Surgery: No - Immunization History Td Vaccination: Yes TDAP Vaccination: Yes Immunization Up to Date: Yes - Suicide/Smoking/Psychosocial Hx Smoking Status: No Smoking History: Current some day smoker Have you smoked in the past 12 months: Yes Number of Cigarettes Smoked Daily: 5 Cigars Per Day: 0 Information on smoking cessation initiated: No Hx Alcohol Use: Yes Drug/Substance Use Hx: No Substance Use Type: None Hx Substance Use Treatment: No Review of Systems - Review of Systems Comments:: 04/11/18 06:40 GENERAL/CONSTITUTIONAL: No fever or chills. No weakness. HEAD, EYES, EARS, NOSE AND THROAT: No change in vision. No sore throat. CARDIOVASCULAR: No chest pain or shortness of breath RESPIRATORY: No cough, wheezing, or hemoptysis. GASTROINTESTINAL: +nausea, +vomiting, +diarrhea +constipation. GENITOURINARY: No dysuria, frequency, or change in urination. MUSCULOSKELETAL: No joint or muscle swelling or pain. No neck or back pain. SKIN: No rash NEUROLOGIC: No headache, vertigo, loss of consciousness, or change in strength/ sensation. ENDOCRINE: No increased thirst. No abnormal weight change HEMATOLOGIC/LYMPHATIC: No anemia, easy bleeding, or history of blood clots. ALLERGIC/IMMUNOLOGIC: No hives or skin allergy. *Physical Exam - Vital Signs Last Vital Signs Temp Pulse Resp BP Pulse Ox 98.2 F 74 18 174/77 H 99 04/11/18 00:07 04/11/18 00:07 04/11/18 00:07 04/11/18 00:07 04/11/18 00:07 - Physical Exam Comments: 04/11/18 06:41 GENERAL: Awake, alert, and fully oriented, in no acute distress HEAD: No signs of trauma, normocephalic, atraumatic EYES: PERRLA, EOMI, sclera anicteric, conjunctiva clear ENT: Auricles normal inspection, hearing grossly normal, nares patent, oropharynx clear without exudates. Moist mucosa NECK: Normal ROM, supple, no lymphadenopathy, JVD, or masses LUNGS: No distress, speaks full sentences, clear to auscultation bilaterally HEART: Regular rate and rhythm, normal S1 and S2, no murmurs, rubs or gallops, peripheral pulses normal and equal bilaterally. ABDOMEN: Soft, nontender, normoactive bowel sounds. No guarding, no rebound. No masses EXTREMITIES: Normal inspection, Normal range of motion, no edema. No clubbing or cyanosis. NEUROLOGICAL: Cranial nerves II through XII grossly intact. Normal speech, normal gait, no focal sensorimotor deficits SKIN: Warm, Dry, normal turgor, no rashes or lesions noted. Moderate Sedation - Procedure Monitoring Vital Signs: Procedure Monitoring Vital Signs Temperature 98.2 F 04/11/18 00:07 Pulse Rate 74 04/11/18 00:07 Respiratory Rate 18 04/11/18 00:07 Blood Pressure 174/77 H 04/11/18 00:07 O2 Sat by Pulse Oximetry (%) 99 04/11/18 00:07 ED Treatment Course - RADIOLOGY Radiology Studies Ordered: Category Date Time Status ABDOMEN US -LIMITED [US] Stat Ultrasound 04/11/18 01:13 Ordered - Medications Given in the ED: ED Medications Discontinued Medications Generic Name Dose Route Start Last Admin Trade Name Freq PRN Reason Stop Dose Admin Acetaminophen 650 mg 04/11/18 01:07 04/11/18 01:30 Tylenol - PO 04/11/18 01:08 Not Given ONCE ONE Medical Decision Making - Medical Decision Making 04/11/18 06:41 Patient is 52F here today reporting abdominal pain. Requesting tylenol. Vitals normal and stable. Blood work and imaging ordered for epigastric pain. Patient eloped before those could be completed. Patient was ambulatory with steady gait and not manic. *DC/Admit/Observation/Transfer Diagnosis at time of Disposition: Abdominal pain - Discharge Dispostion Disposition: ELOPED Condition at time of disposition: Fair Decision to Admit order: No - Referrals Referrals: Brittney Hinkle [Primary Care Provider] - - Patient Instructions - Post Discharge Activity
== END | disposition left against medical advice (07) ==
LOC: JER 00:07
DX: R10.9 Unspecified abdominal pain (principal)
CPT/HCPCS: 99281-25

== ENCOUNTER 2018-04-25 09:43 | Emergency (ER) | payer OTHER | END 2018-04-25 12:00 | disposition left against medical advice (07) | LOC: JERFT 09:43 ==

== ENCOUNTER 2018-08-14 04:06 | Emergency (ER) | payer OTHER | END 2018-08-14 05:23 | disposition home or self-care (01) | LOC: JER 04:06 ==

== ENCOUNTER 2018-08-15 04:56 | Emergency (ER) | payer OTHER | END 2018-08-15 05:48 | disposition home or self-care (01) | LOC: JER 04:56 ==

== ENCOUNTER 2018-08-21 21:03 | Emergency (ER) | payer OTHER | END 2018-08-21 22:31 | disposition left against medical advice (07) | LOC: JERFT 21:03 ==

== ENCOUNTER 2018-10-08 00:14 | Emergency (ER) | payer OTHER ==
[2018-10-08] MEDS ORDERED: ALBUTEROL SO4 2.5/IPRATROPIUM 0.5 INH SOL 3 ML VIAL.NEB. NEB ONE ×2 (00:42→00:57)
[2018-10-08 00:49] VITALS: BP 131/89; PULSE 106; TEMP 98.4; BMI 42.6
[2018-10-08] MEDS ORDERED: predniSONE 20 MG TABLET (UD) PO ONE (00:57)
[2018-10-08] MEDS ORDERED: predniSONE 20 MG TABLET (UD) ONE (01:00)
--- NOTE | 2018-10-08 01:01 | PDOC ---
History of Present Illness - General Chief Complaint: Asthma Stated Complaint: ASTHMA History Source: Patient Exam Limitations: No Limitations - History of Present Illness Initial Comments: 10/08/18 00:58 52 yo F with /o asthma, bipolar disorder here c/o asthma, states has been wheezing for few days. was last on steroids one month ago. has been intubated in [place] 2 yrs ago. has frequent ed visitis for asthma, often elopes prior to assessment. denies cp no f/c also c/o fall tongiht. pt states she slipped on wet floor at her building and fell down few steps.landed on her but. did not hit head. no loc. no violence. no other complaints. Past History - Past Medical History Allergies/Adverse Reactions: Allergies Allergy/AdvReac Type Severity Reaction Status Date / Time surjit Allergy Mild Verified 10/08/18 00:49 prednisone Allergy Verified 10/08/18 00:49 Sulfa (Sulfonamide Allergy Rash Verified 10/08/18 00:49 Antibiotics) [Sulfa(Sulfonamide Antibiotics)] Home Medications: Ambulatory Orders Fluticasone/Salmeterol [Advair 250-50 Diskus] 1 each IH BID 10/20/17 Quetiapine Fumarate [Seroquel] 100 mg PO DAILY #14 tablet 01/30/18 Amoxicillin/Potassium Clav [Augmentin 875-125 Tablet] 1 each PO BID #14 tablet 03/14/18 Azithromycin [Zithromax Tri-Leo (3 DAYS) -] 500 mg PO DAILY #3 tablet 04/07/18 Albuterol 0.083% Nebulizer Malika [Ventolin 0.083% Nebulizer Soln -] 1 neb NEB Q4H #30 vial 10/08/18 Prednisone [Deltasone] 20 mg PO BID #10 tablet 10/08/18 Anemia: No Asthma: Yes Cancer: No Cardiac Disorders: No CVA: No COPD: No CHF: No DVT: No Dementia: No Diabetes: No GI Disorders: No Disorders: No HTN: No Hypercholesterolemia: Yes Liver Disease: No Psychiatric Problems: Yes (Bipolar, suicidal ideations) Seizures: No Thyroid Disease: No - Surgical History Abdominal Surgery: No Appendectomy: No Cardiac Surgery: No Cholecystectomy: No Lung Surgery: No Neurologic Surgery: No Orthopedic Surgery: No - Immunization History Td Vaccination: Yes TDAP Vaccination: Yes Immunization Up to Date: Yes - Suicide/Smoking/Psychosocial Hx Smoking Status: No Smoking History: Unknown if ever smoked Have you smoked in the past 12 months: No Number of Cigarettes Smoked Daily: 0 Cigars Per Day: 0 Hx Alcohol Use: No Drug/Substance Use Hx: No Substance Use Type: None Hx Substance Use Treatment: No Review of Systems - Review of Systems Constitutional: No: Chills, Diaphoresis HEENTM: No: Eye Pain Respiratory: Yes: Shortness of Breath, Wheezing. No: Cough, Orthopnea Cardiac (ROS): No: Chest Pain, Edema Integumentary: No: Bruising, Change in Color Neurological: No: Headache, Numbness All Other Systems: Reviewed and Negative *Physical Exam - Vital Signs Last Vital Signs Temp Pulse Resp BP Pulse Ox 98.4 F 106 H 22 H 131/89 97 10/08/18 00:47 10/08/18 00:47 10/08/18 00:47 10/08/18 00:47 10/08/18 00:47 - Physical Exam Comments: 10/08/18 00:59 awake alert wheezing throughout on expiration. normal effort. no accessory muscle use. ext wwp no edema. no rash. calm cooperative heart rrr no mrg 10/08/18 01:00 skin no eccymosis. no midline spinal tenderness. 5/5 all four ext. ambulating without diffiuclty. Medical Decision Making - Medical Decision Making 10/08/18 01:00 52 yo F with /o asthma, bipolar here with asthma exacerbation. also recent fall. plan nebs steroids reassess. *DC/Admit/Observation/Transfer Diagnosis at time of Disposition: Asthma, Asthma exacerbation - Discharge Dispostion Disposition: HOME Condition at time of disposition: Improved Decision to Admit order: No - Prescriptions Prescriptions: Albuterol 0.083% Nebulizer Malika [Ventolin 0.083% Nebulizer Soln -] 1 neb NEB Q4H #30 vial Prednisone [Deltasone] 20 mg PO BID #10 tablet - Referrals Referrals: Brittney Hinkle [Primary Care Provider] - - Patient Instructions Printed Discharge Instructions: Asthma -- Adult Additional Instructions: you should take prednisone 40 mg dialy. you should also use albuterol every 4 hours as needed for wheezing.return for any problems or concerns. - Post Discharge Activity
== END 2018-10-08 01:49 | disposition home or self-care (01) ==
LOC: JER 00:14
PROC: 3E0F7GC Introduction of Other Therapeutic Substance into Respiratory Tract, Via Natural or Artificial Opening (ICD-10-PCS; principal; 2018-10-08)
DX: J45.901 Unspecified asthma with (acute) exacerbation (principal); W01.0XXA Fall on same level from slipping, tripping and stumbling without subsequent striking against object, initial encounter; W10.8XXA Fall (on) (from) other stairs and steps, initial encounter; Y93.89 Activity, other specified; Y92.038 Other place in apartment as the place of occurrence of the external cause; Y99.8 Other external cause status
CPT/HCPCS: 94640; 99281-25

== ENCOUNTER 2018-10-15 08:59 | Emergency (ER) | payer OTHER ==
[2018-10-15 09:13] VITALS: BP 111/69; PULSE 91; TEMP 98.6; BMI 46.6
== END 2018-10-15 09:39 | disposition left against medical advice (07) ==
LOC: JER 08:59
DX: Z53.21 Procedure and treatment not carried out due to patient leaving prior to being seen by health care provider (principal)
CPT/HCPCS: 99281-25

== ENCOUNTER 2018-10-28 07:00 | Emergency (ER) | payer OTHER ==
[2018-10-28 07:09] VITALS: BP 113/72; PULSE 85; TEMP 98.3; BMI 45.7
[2018-10-28] MEDS ORDERED: predniSONE 20 MG TABLET (UD) PO ONE (07:37)
[2018-10-28] MEDS ORDERED: predniSONE 20 MG TABLET (UD) ONE (07:42)
--- NOTE | 2018-10-28 07:44 | PDOC ---
History of Present Illness - General Chief Complaint: Asthma Stated Complaint: ATHMA Time Seen by Provider: 10/28/18 07:27 History Source: Patient Exam Limitations: No Limitations - History of Present Illness Initial Comments: 10/28/18 07:48 53 y/o female presents to ED with intermittent wheezing unrelieved with inhaler. Pt states currently with sinus pressure and nasal congestion but has appt with ENT, dr jimenes tomorrow. pt states went to [facility] yesterday and was given nebulizer which seemed to help but this am s/s returned unrelieved with inhaler. Pt denies fever, chest pain, or SOB. Timing/Duration: reports: other (3 days) Severity: reports: mild Modifying Factors: improves with: coughing Associated Symptoms: reports: cough, wheezing Past History - Travel Traveled outside of the country in the last 30 days: No Close contact w/someone who was outside of country & ill: No - Past Medical History Allergies/Adverse Reactions: Allergies Allergy/AdvReac Type Severity Reaction Status Date / Time surjit Allergy Mild Verified 10/28/18 07:09 prednisone Allergy Verified 10/28/18 07:09 Sulfa (Sulfonamide Allergy Rash Verified 10/28/18 07:09 Antibiotics) [Sulfa(Sulfonamide Antibiotics)] Home Medications: Ambulatory Orders Fluticasone/Salmeterol [Advair 250-50 Diskus] 1 each IH BID 10/20/17 Quetiapine Fumarate [Seroquel] 100 mg PO DAILY #14 tablet 01/30/18 Amoxicillin/Potassium Clav [Augmentin 875-125 Tablet] 1 each PO BID #14 tablet 03/14/18 Azithromycin [Zithromax Tri-Leo (3 DAYS) -] 500 mg PO DAILY #3 tablet 04/07/18 Albuterol 0.083% Nebulizer Malika [Ventolin 0.083% Nebulizer Soln -] 1 neb NEB Q4H #30 vial 10/08/18 Prednisone [Deltasone] 20 mg PO BID #10 tablet 10/08/18 predniSONE [Deltasone -] 40 mg PO DAILY #4 tablet 10/28/18 Anemia: No Asthma: Yes Cancer: No Cardiac Disorders: No CVA: No COPD: No CHF: No DVT: No Dementia: No Diabetes: No GI Disorders: No Disorders: No HTN: No Hypercholesterolemia: Yes Liver Disease: No Psychiatric Problems: Yes (Bipolar, suicidal ideations) Seizures: No Thyroid Disease: No - Surgical History Abdominal Surgery: No Appendectomy: No Cardiac Surgery: No Cholecystectomy: No Lung Surgery: No Neurologic Surgery: No Orthopedic Surgery: No - Immunization History Td Vaccination: Yes TDAP Vaccination: Yes Immunization Up to Date: Yes - Suicide/Smoking/Psychosocial Hx Smoking Status: No Smoking History: Never smoked Have you smoked in the past 12 months: No Number of Cigarettes Smoked Daily: 0 Cigars Per Day: 0 Hx Alcohol Use: No Drug/Substance Use Hx: No Substance Use Type: None Hx Substance Use Treatment: No Patient Lives Alone: No Lives with/in: spouse/SO Respiratory Specific PMHX - Complaint Specific PMHX Angina: No Bronchitis: Yes Pneumonia: No Pulmonary Embolus: No TB (Tuberculosis): No Review of Systems - Review of Systems Able to Perform ROS?: Yes Constitutional: No: Symptoms Reported HEENTM: Yes: Symptoms Reported, Nose Congestion Respiratory: Yes: Cough, Wheezing Cardiac (ROS): No: Symptoms Reported ABD/GI: No: Symptoms Reported : No: Symptoms Reported Musculoskeletal: No: Symptoms Reported Integumentary: No: Symptoms Reported Neurological: No: Symptoms reported Hematologic/Lymphatic: No: Symptoms Reported *Physical Exam - Vital Signs Last Vital Signs Temp Pulse Resp BP Pulse Ox 98.3 F 85 18 113/72 98 10/28/18 07:07 10/28/18 07:07 10/28/18 07:07 10/28/18 07:07 10/28/18 07:07 - Physical Exam General Appearance: Yes: Nourished, Appropriately Dressed. No: Apparent Distress HEENT: positive: EOMI, LISA, TMs Normal, Pharynx Normal, Nasal Congestion, Rhinorrhea Neck: positive: Supple Respiratory/Chest: positive: Wheezing (expiratory to rt base). negative: Respiratory Distress, Accessory Muscle Use Cardiovascular: positive: Regular Rhythm, Regular Rate. negative: Murmur Gastrointestinal/Abdominal: positive: Soft Extremity: positive: Normal Inspection Integumentary: positive: Normal Color, Warm, Moist Neurologic: positive: Motor Strength 5/5 (ambulatory) Medical Decision Making - Medical Decision Making 10/28/18 07:50 CC: cough wheezing intermittently x 2-3 days Exam: exp wheeze to rt base, no accessory muscle usage, vss Plan: prednisone x 1 and dc home with 3 day supply . Pt has appt with ent tomorrow *DC/Admit/Observation/Transfer Diagnosis at time of Disposition: Asthma exacerbation - Discharge Dispostion Disposition: HOME Condition at time of disposition: Good - Prescriptions Prescriptions: predniSONE [Deltasone -] 40 mg PO DAILY #4 tablet - Referrals - Patient Instructions Printed Discharge Instructions: Asthma -- Adult Additional Instructions: Take Prednisone starting tomorrow. Use inhaler as needed for cough/wheeze. Stay indoors during heat wave as much as possible. See ENT tomorrow - Post Discharge Activity
--- NOTE | 2018-10-28 07:55 | PDOC ---
*Physical Exam - Vital Signs Last Vital Signs Temp Pulse Resp BP Pulse Ox 98.3 F 85 18 113/72 98 10/28/18 07:07 10/28/18 07:07 10/28/18 07:07 10/28/18 07:07 10/28/18 07:07 ED Treatment Course - Medications Given in the ED: ED Medications Discontinued Medications Generic Name Dose Route Start Last Admin Trade Name Elmer PRN Reason Stop Dose Admin Prednisone 40 mg 10/28/18 07:37 10/28/18 07:47 Deltasone - PO 10/28/18 07:38 40 mg ONCE ONE Administration Medical Decision Making - Medical Decision Making 10/28/18 07:54 53 yo F s/p Asthma exacerbation No fever Agree with plan per DONOVAN Hewitt *DC/Admit/Observation/Transfer Diagnosis at time of Disposition: Asthma exacerbation - Discharge Dispostion Disposition: HOME Condition at time of disposition: Good - Prescriptions Prescriptions: predniSONE [Deltasone -] 40 mg PO DAILY #4 tablet - Referrals - Patient Instructions Printed Discharge Instructions: Asthma -- Adult Additional Instructions: Take Prednisone starting tomorrow. Use inhaler as needed for cough/wheeze. Stay indoors during heat wave as much as possible. See ENT tomorrow - Post Discharge Activity
== END 2018-10-28 07:55 | disposition home or self-care (01) ==
LOC: JER 07:00
DX: J45.901 Unspecified asthma with (acute) exacerbation (principal); Z88.2 Allergy status to sulfonamides
CPT/HCPCS: 99281-25

== ENCOUNTER 2018-10-29 09:01 | Emergency (ER) | payer OTHER ==
[2018-10-29 09:11] VITALS: BP 135/78; PULSE 76; TEMP 98; BMI 45.7
[2018-10-29] MEDS ORDERED: ALBUTEROL SO4 2.5/IPRATROPIUM 0.5 INH SOL 3 ML VIAL.NEB. NEB ONE (09:16)
[2018-10-29] MEDS ORDERED: DEXAMETHASONE LIQUID 0.5 MG/5 ML 240 ML BULK BOTTLE PO ONE (09:21)
[2018-10-29] MEDS: ALBUTEROL SO4 2.5/IPRATROPIUM 0.5 INH SOL 3 ML VIAL.NEB. NEB SCH ×2 (09:36→09:45)
[2018-10-29] MEDS ORDERED: DEXAMETHASONE SOD PHOSPHATE 10 MG/1 ML VIAL ONE (09:37)
--- NOTE | 2018-10-29 09:43 | PDOC ---
History of Present Illness - General Chief Complaint: Asthma Stated Complaint: ASTHMA Time Seen by Provider: 10/29/18 09:14 History Source: Patient Exam Limitations: No Limitations Past History - Travel Traveled outside of the country in the last 30 days: No Close contact w/someone who was outside of country & ill: No - Past Medical History Allergies/Adverse Reactions: Allergies Allergy/AdvReac Type Severity Reaction Status Date / Time surjit Allergy Mild Verified 10/29/18 09:10 prednisone Allergy Verified 10/29/18 09:10 Sulfa (Sulfonamide Allergy Rash Verified 10/29/18 09:10 Antibiotics) [Sulfa(Sulfonamide Antibiotics)] Home Medications: Ambulatory Orders Fluticasone/Salmeterol [Advair 250-50 Diskus] 1 each IH BID 10/20/17 Quetiapine Fumarate [Seroquel] 100 mg PO DAILY #14 tablet 01/30/18 Amoxicillin/Potassium Clav [Augmentin 875-125 Tablet] 1 each PO BID #14 tablet 03/14/18 Azithromycin [Zithromax Tri-Leo (3 DAYS) -] 500 mg PO DAILY #3 tablet 04/07/18 Albuterol 0.083% Nebulizer Malika [Ventolin 0.083% Nebulizer Soln -] 1 neb NEB Q4H #30 vial 10/08/18 Prednisone [Deltasone] 20 mg PO BID #10 tablet 10/08/18 predniSONE [Deltasone -] 40 mg PO DAILY #4 tablet 10/28/18 Anemia: No Asthma: Yes Cancer: No Cardiac Disorders: No CVA: No COPD: No CHF: No DVT: No Dementia: No Diabetes: No GI Disorders: No Disorders: No HTN: No Hypercholesterolemia: Yes Liver Disease: No Psychiatric Problems: Yes (Bipolar, suicidal ideations) Seizures: No Thyroid Disease: No - Surgical History Abdominal Surgery: No Appendectomy: No Cardiac Surgery: No Cholecystectomy: No Lung Surgery: No Neurologic Surgery: No Orthopedic Surgery: No - Immunization History Td Vaccination: Yes TDAP Vaccination: Yes Immunization Up to Date: Yes - Suicide/Smoking/Psychosocial Hx Smoking Status: No Smoking History: Never smoked Have you smoked in the past 12 months: No Number of Cigarettes Smoked Daily: 0 Cigars Per Day: 0 Hx Alcohol Use: No Drug/Substance Use Hx: No Substance Use Type: None Hx Substance Use Treatment: No Review of Systems - Review of Systems Able to Perform ROS?: Yes Comments:: 10/29/18 09:40 CONSTITUTIONAL: Absent: fever, chills, diaphoresis, generalized weakness, malaise, loss of appetite HEENT: Absent: rhinorrhea, nasal congestion, throat pain, throat swelling, difficulty swallowing, mouth swelling, ear pain, eye pain, visual Changes CARDIOVASCULAR: Absent: chest pain, loss of consciousness, palpitations, irregular heart rate, peripheral edema RESPIRATORY: Present: cough, wheezing Absent: shortness of breath, dyspnea with exertion, orthopnea, stridor, hemoptysis GASTROINTESTINAL: Absent: abdominal pain, abdominal distension, nausea, vomiting, diarrhea, constipation, melena, hematochezia GENITOURINARY: Absent: dysuria, frequency, urgency, hesitancy, hematuria, flank pain, genital pain MUSCULOSKELETAL: Absent: myalgia, arthralgia, joint swelling SKIN: Absent: rash, itching, pallor HEMATOLOGIC/IMMUNOLOGIC: Absent: easy bleeding, easy bruising, lymphadenopathy, frequent infections ENDOCRINE: Absent: unexplained weight gain, unexplained weight loss, heat intolerance, cold intolerance NEUROLOGIC: Absent: headache, focal weakness or paresthesias, dizziness, unsteady gait, seizure, mental status changes, bladder or bowel incontinence PSYCHIATRIC: Absent: anxiety, depression, suicidal or homicidal ideation, hallucinations. Is the patient limited Zambian proficient: No *Physical Exam - Vital Signs Last Vital Signs Temp Pulse Resp BP Pulse Ox 98 F 76 18 135/78 98 10/29/18 09:07 10/29/18 09:07 10/29/18 09:07 10/29/18 09:07 10/29/18 09:07 - Physical Exam Comments: 10/29/18 09:41 GENERAL: Well developed, well nourished. Awake and alert. No acute distress. HEENT: Normocephalic, atraumatic. PERRLA, EOMI. No conjunctival pallor. Sclera are non- icteric. Moist mucous membranes. Oropharynx is clear. NECK: Supple. Full ROM. No JVD. Carotid pulses 2+ and symmetric, without bruits. No thyromegaly. No lymphadenopathy. CARDIOVASCULAR: Regular rate and rhythm. No murmurs, rubs, or gallops. Distal pulses are 2+ and symmetric. PULMONARY: No evidence of respiratory distress. Lungs with scattered expiratory wheezing. No rales or rhonchi. SKIN: Warm and dry. Normal capillary refill. No rashes. No jaundice. NEUROLOGICAL: Alert, awake, appropriate. Cranial nerves 2-12 intact. No deficits to light touch and temperature in face, upper extremities and lower extremities. No motor deficits in the in face, upper extremities and lower extremities. Normoreflexic in the upper and lower extremities. Normal speech. Toes are down- going bilaterally. Gait is normal without ataxia. PSYCHIATRIC: Cooperative. Good eye contact. Appropriate mood and affect. ED Treatment Course - Medications Given in the ED: ED Medications Discontinued Medications Generic Name Dose Route Start Last Admin Trade Name Elmer PRN Reason Stop Dose Admin Dexamethasone 10 mg 10/29/18 09:21 10/29/18 09:38 Decadron Liquid - PO 10/29/18 09:22 10 mg ONCE ONE Administration Medical Decision Making - Medical Decision Making 10/29/18 09:44 The patient is a 53-year-old female with past medical history of asthma, bipolar , presents to the ER today for an asthma exacerbation. She was seen here yesterday with the same symptoms. She states that she was prescribed nebulizers and steroids but was unable to pick them up last night. She states that her air conditioner broke overnight which caused her to have some wheezing so she represents to the ER for evaluation. Denies fevers, chills, sore throat , chest pain, nausea, vomiting and diarrhea. A/P: Asthma exacerbation On initial lung exam patient with scattered expiratory wheezing. Duo nebs and Decadron ordered. Patient finishes her for duo nebs and was requesting to leave. She states she feels much better and is following with her primary care doctor today at 11 AM. Repeat lung exam now clear with no wheezing She did not want to wait for respiratory for the asthma evaluation plan We will discharge home for to follow up with her primary. Patient states she can seed cone picker the medication that was already prescribed to her. I discussed the physical exam findings, ancillary test results and final diagnoses with the patient. I answered all of the patient's questions. The patient was satisfied with the care received and felt comfortable with the discharge plan and treatment plan. The Patient agrees to follow up with the primary care physician/specialist within 24-72 hours. Return precautions were given. *DC/Admit/Observation/Transfer Diagnosis at time of Disposition: Asthma exacerbation Qualifiers: Asthma severity: mild Asthma persistence: intermittent Qualified Code(s): J45.21 - Mild intermittent asthma with (acute) exacerbation - Discharge Dispostion Disposition: HOME Condition at time of disposition: Stable Decision to Admit order: No - Referrals Referrals: Brittney Hinkle [Primary Care Provider] - - Patient Instructions Printed Discharge Instructions: Asthma -- Adult Additional Instructions: You were evaluated for your asthma today. It resolved with nebulizers and steroids. Please seed cone picker the medications that were prescribed to you yesterday. Take them as directed Keep your appointment with your primary care doctor for today at 11 AM Return to the ER for any new or worsening symptoms. - Post Discharge Activity
== END 2018-10-29 09:48 | disposition home or self-care (01) ==
LOC: JERFT 09:01
PROC: 3E0F7GC Introduction of Other Therapeutic Substance into Respiratory Tract, Via Natural or Artificial Opening (ICD-10-PCS; principal; 2018-10-29)
DX: J45.21 Mild intermittent asthma with (acute) exacerbation (principal); Z88.2 Allergy status to sulfonamides
CPT/HCPCS: 94640; 99281-25

== ENCOUNTER 2018-10-30 15:58 | Emergency (ER) | payer OTHER ==
[2018-10-30 16:04] VITALS: BP 117/71; PULSE 71; TEMP 98.1; BMI 45.8
--- NOTE | 2018-10-30 16:07 | PDOC ---
Rapid Medical Evaluation Chief Complaint: Pain Time Seen by Provider: 10/30/18 16:00 Medical Evaluation: Allergies Allergy/AdvReac Type Severity Reaction Status Date / Time surjit Allergy Mild Verified 10/30/18 16:04 prednisone Allergy Verified 10/30/18 16:04 Sulfa (Sulfonamide Allergy Rash Verified 10/30/18 16:04 Antibiotics) [Sulfa(Sulfonamide Antibiotics)] Vital Signs Temp Pulse Resp BP Pulse Ox 98.1 F 71 18 117/71 97 10/30/18 16:00 10/30/18 16:00 10/30/18 16:00 10/30/18 16:00 10/30/18 16:00 10/30/18 16:09 I have performed a brief in-person evaluation of this patient. The patient presents with a chief complaint of: h/o Asthma on chronic prednisone for years and morbid obesity present with complains of worsening b/l LE swelling in the last 5 days. Patient report she always had leg swelling due to prednisone but went to apartment rental agent office today who told her leg swelling could be from blood clot. Denies SOB, CP, claudications Pertinent physical exam findings: moderate pitting b/l peripheral edema I have ordered the following: b/l duplex U/S The patient will proceed to the ED for further evaluation. Discharge Disposition - Diagnosis Peripheral edema - Discharge Dispostion Condition at time of disposition: Stable - Referrals - Patient Instructions - Post Discharge Activity
--- NOTE | 2018-10-30 16:49 | PDOC ---
History of Present Illness - General Chief Complaint: Pain Stated Complaint: PAIN IN BOTH LEGS, R/O DVT Time Seen by Provider: 10/30/18 16:00 History Source: Patient - History of Present Illness Occurred: reports: yesterday Lower Extremity Pain Location: bilateral: leg Past History - Past Medical History Allergies/Adverse Reactions: Allergies Allergy/AdvReac Type Severity Reaction Status Date / Time surjit Allergy Mild Verified 10/30/18 16:04 prednisone Allergy Verified 10/30/18 16:04 Sulfa (Sulfonamide Allergy Rash Verified 10/30/18 16:04 Antibiotics) [Sulfa(Sulfonamide Antibiotics)] Home Medications: Ambulatory Orders Fluticasone/Salmeterol [Advair 250-50 Diskus] 1 each IH BID 10/20/17 Quetiapine Fumarate [Seroquel] 100 mg PO DAILY #14 tablet 01/30/18 Amoxicillin/Potassium Clav [Augmentin 875-125 Tablet] 1 each PO BID #14 tablet 03/14/18 Azithromycin [Zithromax Tri-Leo (3 DAYS) -] 500 mg PO DAILY #3 tablet 04/07/18 Albuterol 0.083% Nebulizer Malika [Ventolin 0.083% Nebulizer Soln -] 1 neb NEB Q4H #30 vial 10/08/18 Prednisone [Deltasone] 20 mg PO BID #10 tablet 10/08/18 predniSONE [Deltasone -] 40 mg PO DAILY #4 tablet 10/28/18 Anemia: No Asthma: Yes Cancer: No Cardiac Disorders: No CVA: No COPD: No CHF: No DVT: No Dementia: No Diabetes: No GI Disorders: No Disorders: No HTN: No Hypercholesterolemia: Yes Liver Disease: No Psychiatric Problems: Yes (Bipolar, suicidal ideations) Seizures: No Thyroid Disease: No - Surgical History Abdominal Surgery: No Appendectomy: No Cardiac Surgery: No Cholecystectomy: No Lung Surgery: No Neurologic Surgery: No Orthopedic Surgery: No - Immunization History Td Vaccination: Yes TDAP Vaccination: Yes Immunization Up to Date: Yes - Suicide/Smoking/Psychosocial Hx Smoking Status: No Smoking History: Never smoked Have you smoked in the past 12 months: No Number of Cigarettes Smoked Daily: 0 Cigars Per Day: 0 Information on smoking cessation initiated: No Hx Alcohol Use: No Drug/Substance Use Hx: No Substance Use Type: None Hx Substance Use Treatment: No Review of Systems - Review of Systems Constitutional: No: Chills, Fever Respiratory: No: Cough, Shortness of Breath Cardiac (ROS): No: Chest Pain ABD/GI: No: Nausea, Vomiting Integumentary: No: Erythema *Physical Exam - Vital Signs Last Vital Signs Temp Pulse Resp BP Pulse Ox 98.1 F 71 18 117/71 97 10/30/18 16:00 10/30/18 16:00 10/30/18 16:00 10/30/18 16:00 10/30/18 16:00 - Physical Exam General Appearance: Yes: Appropriately Dressed. No: Apparent Distress HEENT: positive: Normal Voice Neck: positive: Supple Respiratory/Chest: positive: Lungs Clear, Normal Breath Sounds. negative: Respiratory Distress Cardiovascular: positive: Regular Rate, S1, S2 Extremity: positive: Pedal Edema (b/l w/ minimal ttp throughout b/l, no erythema , unable to palpate pedal pulses b/l 2/2 edema, ) Integumentary: positive: Dry, Warm Neurologic: positive: Fully Oriented, Alert, Normal Mood/Affect, Motor Strength 5/5 Medical Decision Making - Medical Decision Making 10/30/18 16:48 53-year-old morbidly obesed F, w/ h/o HTN,, chronic b/l pedal edema, asthma, takes prednisone twice a week , bipolar, here with worsening of her bilateral lower extremity edema since yesterday. No redness, fever or chills and denies chest pain, shortness of breath or cough. Patient did drive 18 hours to [place] 2 weeks ago. Patient well-appearing and stable with 2+ edema to bilateral lower extremity, no signs of infection. Rest of exam unremarkable. Bilateral dopplers ordered from E and negative. Dc to follow-up with PMD and water pollution scientist *DC/Admit/Observation/Transfer Diagnosis at time of Disposition: Peripheral edema - Discharge Dispostion Disposition: HOME Condition at time of disposition: Stable - Referrals Referrals: Brittney Hinkle [Primary Care Provider] - - Patient Instructions Printed Discharge Instructions: DI for Peripheral Edema -- Bilateral Additional Instructions: Your US was negative today Please follow up with your PMD for your leg swelling - Post Discharge Activity
== END 2018-10-30 17:18 | disposition home or self-care (01) ==
LOC: JERFT 15:58
DX: R60.9 Edema, unspecified (principal)
CPT/HCPCS: 93970-TC; 99281-25

== ENCOUNTER 2019-01-05 17:59 | Emergency (ER) | payer OTHER ==
[2019-01-05 18:05] VITALS: BP 122/86; PULSE 81; TEMP 98.2; BMI 42.4
[2019-01-05] MEDS ORDERED: ACETAMINOPHEN 325 MG TABLET (FP) ONE (18:40)
[2019-01-05] MEDS ORDERED: predniSONE 20 MG TABLET (UD) ONE (18:43)
[2019-01-05] MEDS ORDERED: ALBUTEROL SO4 2.5/IPRATROPIUM 0.5 INH SOL 3 ML VIAL.NEB. NEB ONE ×2 (18:43→18:55)
[2019-01-05] MEDS ORDERED: predniSONE 20 MG TABLET (UD) PO ONE (18:54)
[2019-01-05] MEDS ORDERED: ACETAMINOPHEN 325 MG TABLET (FP) PO ONE (18:55)
--- NOTE | 2019-01-05 19:34 | PDOC ---
History of Present Illness - General Chief Complaint: Asthma Stated Complaint: ASTHMA Time Seen by Provider: 01/05/19 18:37 History Source: Patient Exam Limitations: No Limitations - History of Present Illness Initial Comments: 01/05/19 19:32 Patient is a 53-year-old female with history of asthma, bipolar disorder complaining of shortness of breath since this evening. States that she went to [facility] and spent 2 hours in the emergency room with no treatment and so decided to come to this emergency room. PMHX: as above PSOCHX: neg etoh, drug, cig ALL: prednisone, sulfa GENERAL/CONSTITUTIONAL: [No fever or chills. No weakness. No weight change.] HEAD, EYES, EARS, NOSE AND THROAT: [No change in vision. No ear pain or discharge. No sore throat.] CARDIOVASCULAR: [No chest pain or shortness of breath.] RESPIRATORY: [No cough, (+) wheezing, or hemoptysis.] GASTROINTESTINAL: [No nausea, vomiting, diarrhea or constipation. No rectal bleeding.] GENITOURINARY: [No dysuria, frequency, or change in urination.] MUSCULOSKELETAL: [No joint or muscle swelling or pain. No neck or back pain.] SKIN AND BREASTS: [No rash or easy bruising.] NEUROLOGIC: [No headache, vertigo, loss of consciousness, or loss of sensation.] PSYCHIATRIC: [No depression or anxiety.] ENDOCRINE: [No increased thirst. No abnormal weight change.] HEMATOLOGIC/LYMPHATIC: [No anemia, easy bleeding, or history of blood clots.] ALLERGIC/IMMUNOLOGIC: [No hives or skin allergy. No latex allergy.] GENERAL: [The patient is awake, alert, and fully oriented, in mild distress, unable to speak in full sentences.] HEAD: [Normal with no signs of trauma.] EYES: [Pupils equal, round and reactive to light, extraocular movements intact, sclera anicteric, conjunctiva clear.] ENT: [Ears normal, nares patent, oropharynx clear without exudates. Moist mucous membranes.] NECK: [Normal range of motion, supple without lymphadenopathy, JVD, or masses.] LUNGS: [Breath sounds equal, audible wheezes, and no crackles.] HEART: [Regular rate and rhythm, normal S1 and S2 without murmur, rub.] ABDOMEN: [Soft, nontender, normoactive bowel sounds. No guarding, no rebound. No masses.] EXTREMITIES: [Normal range of motion, no edema. No clubbing or cyanosis. No cords, erythema, or tenderness.] NEUROLOGICAL: [Cranial nerves II through XII grossly intact. Normal speech, normal gait.] PSYCH: [hypermanic mood, normal affect.] SKIN: [Warm, Dry, normal turgor, no rashes or lesions noted.] Past History - Past Medical History Allergies/Adverse Reactions: Allergies Allergy/AdvReac Type Severity Reaction Status Date / Time surjit Allergy Mild Verified 01/05/19 18:05 prednisone Allergy Verified 01/05/19 18:05 Sulfa (Sulfonamide Allergy Rash Verified 01/05/19 18:05 Antibiotics) [Sulfa(Sulfonamide Antibiotics)] Home Medications: Ambulatory Orders Fluticasone/Salmeterol [Advair 250-50 Diskus] 1 each IH BID 10/20/17 Quetiapine Fumarate [Seroquel] 100 mg PO DAILY #14 tablet 01/30/18 Amoxicillin/Potassium Clav [Augmentin 875-125 Tablet] 1 each PO BID #14 tablet 03/14/18 Azithromycin [Zithromax Tri-Leo (3 DAYS) -] 500 mg PO DAILY #3 tablet 04/07/18 Albuterol 0.083% Nebulizer Malika [Ventolin 0.083% Nebulizer Soln -] 1 neb NEB Q4H #30 vial 10/08/18 Prednisone [Deltasone] 20 mg PO BID #10 tablet 10/08/18 predniSONE [Deltasone -] 40 mg PO DAILY #4 tablet 10/28/18 Anemia: No Asthma: Yes Cancer: No Cardiac Disorders: No CVA: No COPD: No CHF: No DVT: No Dementia: No Diabetes: No GI Disorders: No Disorders: No HTN: No Hypercholesterolemia: Yes Liver Disease: No Psychiatric Problems: Yes (Bipolar, suicidal ideations) Seizures: No Thyroid Disease: No - Surgical History Abdominal Surgery: No Appendectomy: No Cardiac Surgery: No Cholecystectomy: No Lung Surgery: No Neurologic Surgery: No Orthopedic Surgery: No - Immunization History Td Vaccination: Yes TDAP Vaccination: Yes Immunization Up to Date: Yes - Psycho Social/Smoking Cessation Hx Smoking Status: No Smoking History: Never smoked Have you smoked in the past 12 months: No Number of Cigarettes Smoked Daily: 0 Cigars Per Day: 0 Hx Alcohol Use: No Drug/Substance Use Hx: No Substance Use Type: None Hx Substance Use Treatment: No Respiratory Specific PMHX - Complaint Specific PMHX Hx Bronchitis: Yes Hx Pneumonia: No Hx Pulmonary Embolus: No Hx TB (Tuberculosis): No Hx Angina: No *Physical Exam - Vital Signs Last Vital Signs Temp Pulse Resp BP Pulse Ox 98.2 F 81 18 122/86 100 01/05/19 18:02 01/05/19 18:02 01/05/19 18:02 01/05/19 18:02 01/05/19 18:02 ED Treatment Course - Medications Given in the ED: ED Medications Discontinued Medications Generic Name Dose Route Start Last Admin Trade Name Freq PRN Reason Stop Dose Admin Acetaminophen 650 mg 01/05/19 18:55 01/05/19 18:55 Tylenol - PO 01/05/19 18:56 650 mg NOW ONE Administration Albuterol/Ipratropium 1 amp 01/05/19 18:55 01/05/19 18:55 Duoneb - NEB 01/05/19 18:56 2 amp NOW ONE Administration Prednisone 60 mg 01/05/19 18:54 01/05/19 18:55 Deltasone - PO 01/05/19 18:55 Not Given NOW ONE Medical Decision Making - Medical Decision Making 01/05/19 19:32 Patient is a 53-year-old female with history of asthma, bipolar disorder complaining of shortness of breath since this evening. States that she went to [facility] and spent 2 hours in the emergency room with no treatment and so decided to come to this emergency room. Patient symptoms consistent with asthma exacerbation Will give neb treatments Prednisone offered but refused Reassess 01/05/19 19:50 At reassessment patient was nowhere to be found in the emergency room, it is assumed that patient eloped. Discharge - Discharge Information Problems reviewed: Yes Clinical Impression/Diagnosis: Eloped Asthma exacerbation Qualifiers: Asthma severity: unspecified severity Asthma persistence: unspecified Qualified Code(s): J45.901 - Unspecified asthma with (acute) exacerbation Condition: Stable Disposition: ELOPED - Follow up/Referral - Patient Discharge Instructions - Post Discharge Activity
== END 2019-01-05 19:54 | disposition left against medical advice (07) ==
LOC: JER 17:59
PROC: 3E0F7GC Introduction of Other Therapeutic Substance into Respiratory Tract, Via Natural or Artificial Opening (ICD-10-PCS; principal; 2019-01-05)
DX: J45.901 Unspecified asthma with (acute) exacerbation (principal); F31.9 Bipolar disorder, unspecified; E78.00 Pure hypercholesterolemia, unspecified; F99 Mental disorder, not otherwise specified; Z88.2 Allergy status to sulfonamides; Z88.8 Allergy status to other drugs, medicaments and biological substances; Z91.018 Allergy to other foods
CPT/HCPCS: 94640; 99281-25

== ENCOUNTER 2019-01-30 23:19 | Emergency (ER) | payer OTHER ==
[2019-01-30 23:35] VITALS: BP 146/86; PULSE 92; TEMP 98; BMI 43.9
--- NOTE | 2019-01-30 23:54 | PDOC ---
History of Present Illness - General Chief Complaint: Cold Symptoms Stated Complaint: CONGESTION Time Seen by Provider: 01/30/19 23:29 History Source: Patient, Old Records Exam Limitations: No Limitations - History of Present Illness Initial Comments: 01/30/19 23:51 HISTORY OF PRESENT ILLNESS: This is a 53-year-old woman well-known to this emergency department who presents for evaluation of nasal congestion and audible wheezing. Patient reports she was in her usual state of health until 2 days ago she began to experience the wheezing. Patient reported increased shortness of breath over that time. No recent travel or sick contacts. PAST MEDICAL HISTORY: Denies past medical history SURGICAL HISTORY: Denies ALLERGIES: Sulfa drugs, prednisone-erratic behavior REVIEW OF SYSTEMS General/Constitutional: Denies fever or chills. Denies weakness, weight change. HEENT: See HPI Cardiovascular: Denies chest pain or shortness of breath. Respiratory: See HPI Gastrointestinal: Denies nausea, vomiting, diarrhea or constipation. Denies rectal bleeding. Genitourinary: Denies dysuria, frequency, or change in urination. Musculoskeletal: Denies joint or muscle swelling or pain. Denies neck or back pain. Skin and breasts: Denies rash or easy bruising. Neurologic: Denies headache, vertigo, loss of consciousness, or loss of sensation. Psychiatric: Denies depression or anxiety. Endocrine: Denies increased thirst. Denies abnormal weight change. Hematologic/Lymphatic: Denies anemia, easy bleeding, or history of blood clots. Allergic/Immunologic: Denies hives or skin allergy. Denies latex allergy. PHYSICAL EXAM General Appearance: Well-appearing, appropriately dressed. No apparent distress , no intoxication. HEENT: EOMI, PERRLA, normal ENT inspection, normal voice, TMs normal, pharynx normal. No conjunctival pallor. No photophobia, scleral icterus. Neck: Supple. Trachea midline. No tenderness, rigidity, carotid bruit, stridor , lymphadenopathy, or thyromegaly. Respiratory/Chest: Lungs CTAB. No shortness of breath, chest tenderness, respiratory distress, accessory muscle use. No crackles, rales, rhonchi, stridor , dullness. Inspiratory and expiratory wheezing across all lung fu. No respiratory distress noted. Patient speaking in full sentences. Cardiovascular: RRR. S1, S2. No JVD, murmur, bradycardia, tachycardia. Vascular Pulses: Dorsalis-Pedis (R): 2+, Dorsalis-Pedis (L): 2+ Gastrointestinal/Abdominal: Normal bowel sounds. Abdomen soft, non-distended. No tenderness or rebound tenderness. No organomegaly, pulsatile mass, guarding, hernia, hepatomegaly, splenomegaly. Lymphatic: No adenopathy, tenderness. Musculoskeletal/Extremities: Normal inspection. FROM of all extremities, normal capillary refill. Pelvis Stable. No CVA tenderness. No tenderness to extremities, pedal edema, swelling, erythema or deformity. Right hand tremor present. Integumentary: Appropriate color, dry, warm. No cyanosis, erythema, jaundice or rash Neurologic: intern architect II-XII intact. Fully oriented, alert. Appropriate mood/affect. Motor strength 5/5. No appreciable EOM palsy, facial droop or sensory deficit. Past History - Past Medical History Allergies/Adverse Reactions: Allergies Allergy/AdvReac Type Severity Reaction Status Date / Time surjit Allergy Mild Verified 01/30/19 23:34 prednisone Allergy Verified 01/30/19 23:34 Sulfa (Sulfonamide Allergy Rash Verified 01/30/19 23:34 Antibiotics) [Sulfa(Sulfonamide Antibiotics)] Home Medications: Ambulatory Orders Fluticasone/Salmeterol [Advair 250-50 Diskus] 1 each IH BID 10/20/17 Quetiapine Fumarate [Seroquel] 100 mg PO DAILY #14 tablet 01/30/18 Amoxicillin/Potassium Clav [Augmentin 875-125 Tablet] 1 each PO BID #14 tablet 03/14/18 Azithromycin [Zithromax Tri-Leo (3 DAYS) -] 500 mg PO DAILY #3 tablet 04/07/18 Albuterol 0.083% Nebulizer Malika [Ventolin 0.083% Nebulizer Soln -] 1 neb NEB Q4H #30 vial 10/08/18 predniSONE [Deltasone] 20 mg PO BID #10 tablet 10/08/18 predniSONE [Deltasone -] 40 mg PO DAILY #4 tablet 10/28/18 Azithromycin [Zithromax 250mg Tablets -] 250 mg PO UTDICT #6 tab 01/31/19 Anemia: No Asthma: Yes Cancer: No Cardiac Disorders: No CVA: No COPD: No CHF: No DVT: No Dementia: No Diabetes: No GI Disorders: No Disorders: No HTN: No Hypercholesterolemia: Yes Liver Disease: No Psychiatric Problems: Yes (Bipolar, suicidal ideations) Seizures: No Thyroid Disease: No - Surgical History Abdominal Surgery: No Appendectomy: No Cardiac Surgery: No Cholecystectomy: No Lung Surgery: No Neurologic Surgery: No Orthopedic Surgery: No - Immunization History Td Vaccination: Yes TDAP Vaccination: Yes Immunization Up to Date: Yes - Psycho Social/Smoking Cessation Hx Smoking Status: No Smoking History: Never smoked Have you smoked in the past 12 months: No Number of Cigarettes Smoked Daily: 0 Cigars Per Day: 0 Information on smoking cessation initiated: No Hx Alcohol Use: No Drug/Substance Use Hx: No Substance Use Type: None Hx Substance Use Treatment: No Respiratory Specific PMHX - Complaint Specific PMHX Hx Bronchitis: Yes Hx Pneumonia: No Hx Pulmonary Embolus: No Hx TB (Tuberculosis): No *Physical Exam - Vital Signs Last Vital Signs Temp Pulse Resp BP Pulse Ox 98.0 F 92 H 20 146/86 97 01/30/19 23:34 01/30/19 23:34 01/30/19 23:34 01/30/19 23:34 01/30/19 23:34 Medical Decision Making - Medical Decision Making 01/30/19 23:53 A/P: 53-year-old woman with congestion and shortness of breath Speaking full sentences No sensory muscle use noted Expiratory and expiratory wheezes in all fu Right hand tremor-patient reports this is been present since initiation of Haldol therapy. Patient is taking Cogentin to help alleviate symptoms. Likely acute asthma exacerbation due to temperature change DuoNeb x4 Reassess Likely discharge 01/31/19 01:10 Repeat lung exam reveals clear lungs. Patient feels well enough to go home. Upon discussion with the patient she reports she has not taken her Singulair as prescribed as she is unsure what the medication was for after her recent psychiatric hospitalization. Patient was instructed to take her Singulair as prescribed to help decrease need for emergency department visits. Patient reports she has a full complement of nebulizer solution at home and was just recently prescribed albuterol pump. As patient has a poor pulmonary history I will add azithromycin to treat any potential bacterial etiology for her upper respiratory infection. Discharge - Discharge Information Problems reviewed: Yes Clinical Impression/Diagnosis: Asthma exacerbation Qualifiers: Asthma severity: moderate Asthma persistence: persistent Qualified Code(s): J45.41 - Moderate persistent asthma with (acute) exacerbation URI (upper respiratory infection) Qualifiers: URI type: unspecified URI Qualified Code(s): J06.9 - Acute upper respiratory infection, unspecified Condition: Fair Disposition: HOME - Admission No - Additional Discharge Information Prescriptions: Azithromycin [Zithromax 250mg Tablets -] 250 mg PO UTDICT #6 tab - Follow up/Referral Referrals: Brittney Hinkle [Primary Care Provider] - - Patient Discharge Instructions Patient Printed Discharge Instructions: DI for Viral Upper Respiratory Infection -- Adult Additional Instructions: Rest, drink lots of fluids: Teas, water, soups, Pedialyte Saltwater gargles Steamy showers/seem to face break up mucus Avoid contact with others until fevers and cough resolved Lots of handwashing and good hygiene Continue [id number] medications for symptomatic relief Tylenol or Motrin for fever and pain Continue albuterol nebulizers every 4-6 hours for the next 2 days then as needed for continued cough Followup with private physician in one to 2 days Return to emergency department / pediatric hospital for worsened symptoms, fevers, dehydration - Post Discharge Activity
[2019-01-31] MEDS ORDERED: ALBUTEROL SO4 2.5/IPRATROPIUM 0.5 INH SOL 3 ML VIAL.NEB. NEB ONE (00:01)
[2019-01-31] MEDS: ALBUTEROL SO4 2.5/IPRATROPIUM 0.5 INH SOL 3 ML VIAL.NEB. NEB SCH ×2 (00:42→00:51)
--- NOTE | 2019-01-31 00:42 | PDOC ---
*Physical Exam - Vital Signs Last Vital Signs Temp Pulse Resp BP Pulse Ox 98.0 F 92 H 20 146/86 97 01/30/19 23:34 01/30/19 23:34 01/30/19 23:34 01/30/19 23:34 01/30/19 23:34 Medical Decision Making - Medical Decision Making 01/31/19 00:42 Case reviewed, agree with assessment and plan Discharge - Discharge Information Problems reviewed: Yes Clinical Impression/Diagnosis: Asthma exacerbation Qualifiers: Asthma severity: moderate Asthma persistence: persistent Qualified Code(s): J45.41 - Moderate persistent asthma with (acute) exacerbation URI (upper respiratory infection) Qualifiers: URI type: unspecified URI Qualified Code(s): J06.9 - Acute upper respiratory infection, unspecified Condition: Fair Disposition: HOME - Additional Discharge Information Prescriptions: Azithromycin [Zithromax 250mg Tablets -] 250 mg PO UTDICT #6 tab - Follow up/Referral Referrals: Brittney Hinkle [Primary Care Provider] - - Patient Discharge Instructions Patient Printed Discharge Instructions: DI for Viral Upper Respiratory Infection -- Adult Additional Instructions: Rest, drink lots of fluids: Teas, water, soups, Pedialyte Saltwater gargles Steamy showers/seem to face break up mucus Avoid contact with others until fevers and cough resolved Lots of handwashing and good hygiene Continue [id number] medications for symptomatic relief Tylenol or Motrin for fever and pain Continue albuterol nebulizers every 4-6 hours for the next 2 days then as needed for continued cough Followup with private physician in one to 2 days Return to emergency department / pediatric hospital for worsened symptoms, fevers, dehydration - Post Discharge Activity
== END 2019-01-31 01:21 | disposition home or self-care (01) ==
LOC: JER 23:19
PROC: 3E0F7GC Introduction of Other Therapeutic Substance into Respiratory Tract, Via Natural or Artificial Opening (ICD-10-PCS; principal; 2019-01-30)
DX: J45.21 Mild intermittent asthma with (acute) exacerbation (principal); J06.9 Acute upper respiratory infection, unspecified; G25.1 Drug-induced tremor; Z88.2 Allergy status to sulfonamides; Z88.8 Allergy status to other drugs, medicaments and biological substances; Z91.018 Allergy to other foods; E78.00 Pure hypercholesterolemia, unspecified; F31.9 Bipolar disorder, unspecified
CPT/HCPCS: 99282-25

== ENCOUNTER 2019-02-26 00:54 | Emergency (ER) | payer OTHER ==
--- NOTE | 2019-02-26 01:02 | PDOC ---
Medical Decision Making - Medical Decision Making 02/26/19 01:01 Patient seen by the advanced practice provider under my direct supervision. Ancillary testing reviewed as necessary. I agree with plan as outlined by the advanced practice provider. Discharge - Discharge Information Problems reviewed: Yes Clinical Impression/Diagnosis: Anxiety, Asthma Condition: Good Disposition: HOME - Additional Discharge Information Prescriptions: Albuterol 0.083% Nebulizer Malika [Ventolin 0.083% Nebulizer Soln -] 1 neb NEB Q4H PRN #30 vial PRN Reason: Asthma - Follow up/Referral Referrals: Brittney Hinkle [Primary Care Provider] - - Patient Discharge Instructions Patient Printed Discharge Instructions: Asthma -- Adult Additional Instructions: take albuterol as prescribed - Post Discharge Activity
[2019-02-26 01:08] VITALS: BP 132/88; PULSE 80; TEMP 98.4; BMI 45.7
--- NOTE | 2019-02-26 01:16 | PDOC ---
History of Present Illness - General Chief Complaint: Asthma Stated Complaint: SHORTNESS OF BREATH History Source: Patient - History of Present Illness Initial Comments: 02/26/19 01:10 53 year old ELLYA reports feeling anxious after taking prednisone 3 hours prior to arrival at [facility]. patient reports that she is feeling better. patient is talkative. denies SI, Denies HI. patient reports that she is upset with [employer]. pm,hx: bipolar, asthma 02/26/19 01:16 Past History - Past Medical History Allergies/Adverse Reactions: Allergies Allergy/AdvReac Type Severity Reaction Status Date / Time surjit Allergy Mild Verified 01/30/19 23:34 prednisone Allergy Verified 01/30/19 23:34 Sulfa (Sulfonamide Allergy Rash Verified 01/30/19 23:34 Antibiotics) [Sulfa(Sulfonamide Antibiotics)] Home Medications: Ambulatory Orders Fluticasone/Salmeterol [Advair 250-50 Diskus] 1 each IH BID 10/20/17 Quetiapine Fumarate [Seroquel] 100 mg PO DAILY #14 tablet 01/30/18 Amoxicillin/Potassium Clav [Augmentin 875-125 Tablet] 1 each PO BID #14 tablet 03/14/18 Azithromycin [Zithromax Tri-Leo (3 DAYS) -] 500 mg PO DAILY #3 tablet 04/07/18 Albuterol 0.083% Nebulizer Malika [Ventolin 0.083% Nebulizer Soln -] 1 neb NEB Q4H #30 vial 10/08/18 predniSONE [Deltasone] 20 mg PO BID #10 tablet 10/08/18 predniSONE [Deltasone -] 40 mg PO DAILY #4 tablet 10/28/18 Azithromycin [Zithromax 250mg Tablets -] 250 mg PO UTDICT #6 tab 01/31/19 Albuterol 0.083% Nebulizer Malika [Ventolin 0.083% Nebulizer Soln -] 1 neb NEB Q4H PRN #30 vial 02/26/19 Anemia: No Asthma: Yes Cancer: No Cardiac Disorders: No CVA: No COPD: No CHF: No DVT: No Dementia: No Diabetes: No GI Disorders: No Disorders: No HTN: No Hypercholesterolemia: Yes Liver Disease: No Psychiatric Problems: Yes (Bipolar, suicidal ideations) Seizures: No Thyroid Disease: No - Surgical History Abdominal Surgery: No Appendectomy: No Cardiac Surgery: No Cholecystectomy: No Lung Surgery: No Neurologic Surgery: No Orthopedic Surgery: No - Immunization History Td Vaccination: Yes TDAP Vaccination: Yes Immunization Up to Date: Yes - Psycho Social/Smoking Cessation Hx Smoking Status: No Smoking History: Never smoked Have you smoked in the past 12 months: No Number of Cigarettes Smoked Daily: 0 Cigars Per Day: 0 Information on smoking cessation initiated: No Hx Alcohol Use: No Drug/Substance Use Hx: Yes (PCP) Substance Use Type: None Hx Substance Use Treatment: No Respiratory Specific PMHX - Complaint Specific PMHX Hx Bronchitis: Yes Hx Pneumonia: No Hx Pulmonary Embolus: No Hx TB (Tuberculosis): No Review of Systems - Review of Systems Able to Perform ROS?: Yes Is the patient limited Chinese proficient: No *Physical Exam - Vital Signs Last Vital Signs Temp Pulse Resp BP Pulse Ox 98.4 F 80 18 132/88 97 02/26/19 01:05 02/26/19 01:05 02/26/19 01:05 02/26/19 01:05 02/26/19 01:05 - Physical Exam General Appearance: Yes: Appropriately Dressed Respiratory/Chest: positive: Lungs Clear, Normal Breath Sounds. negative: Accessory Muscle Use, Wheezing Cardiovascular: positive: Regular Rhythm, Regular Rate Gastrointestinal/Abdominal: positive: Normal Bowel Sounds, Soft. negative: Tender Extremity: positive: Normal Capillary Refill, Normal Inspection, Normal Range of Motion Integumentary: positive: Normal Color, Dry, Warm Neurologic: positive: Fully Oriented, Alert, Normal Mood/Affect ED Progress Note - Progress Note Progress Note: asthma; anxiety P: 02/26/19 01:18 patient is calm. will d/c home. albuterol nebulizer refilled, patient reports that she ran out Discharge - Discharge Information Problems reviewed: Yes Clinical Impression/Diagnosis: Anxiety, Asthma Condition: Good Disposition: HOME - Additional Discharge Information Prescriptions: Albuterol 0.083% Nebulizer Malika [Ventolin 0.083% Nebulizer Soln -] 1 neb NEB Q4H PRN #30 vial PRN Reason: Asthma - Follow up/Referral Referrals: Brittney Hinkle [Primary Care Provider] - - Patient Discharge Instructions Patient Printed Discharge Instructions: Asthma -- Adult Additional Instructions: take albuterol as prescribed - Post Discharge Activity
== END 2019-02-26 01:38 | disposition home or self-care (01) ==
LOC: JER 00:54
DX: J45.909 Unspecified asthma, uncomplicated (principal); F41.9 Anxiety disorder, unspecified; Z88.2 Allergy status to sulfonamides; Z88.8 Allergy status to other drugs, medicaments and biological substances; Z91.018 Allergy to other foods
CPT/HCPCS: 99281-25

== ENCOUNTER 2019-03-01 05:05 | Emergency (ER) | payer OTHER ==
[2019-03-01] MEDS ORDERED: ALBUTEROL SO4 2.5/IPRATROPIUM 0.5 INH SOL 3 ML VIAL.NEB. NEB ONE (05:08)
[2019-03-01] MEDS ORDERED: ALBUTEROL SO4 2.5/IPRATROPIUM 0.5 INH SOL 3 ML VIAL.NEB. NEB SCH (06:00)
[2019-03-01 06:09] VITALS: BP 142/78; PULSE 104; TEMP 98.2; BMI 47.9
--- NOTE | 2019-03-01 06:19 | PDOC ---
History of Present Illness - General Chief Complaint: Asthma Stated Complaint: DIFFICULTY BREATHING Time Seen by Provider: 03/01/19 06:18 - History of Present Illness Initial Comments: 53 year old female with PMH of asthma presenting with SOB and wheezing for the past few hours. She actually called into our facility and stated that she was coming in for some treatments and wanted the doctor to know so that "the doctors take good care of her". She denied any fevers, chills, nausea, vomiting , diarrhea, chest pain, or other symptoms. She did take a few treatments at home and admits to a mild non-productive cough. Past History - Past Medical History Allergies/Adverse Reactions: Allergies Allergy/AdvReac Type Severity Reaction Status Date / Time surjit Allergy Mild Verified 01/30/19 23:34 prednisone Allergy Verified 01/30/19 23:34 Sulfa (Sulfonamide Allergy Rash Verified 01/30/19 23:34 Antibiotics) [Sulfa(Sulfonamide Antibiotics)] Home Medications: Ambulatory Orders Fluticasone/Salmeterol [Advair 250-50 Diskus] 1 each IH BID 10/20/17 Quetiapine Fumarate [Seroquel] 100 mg PO DAILY #14 tablet 01/30/18 Amoxicillin/Potassium Clav [Augmentin 875-125 Tablet] 1 each PO BID #14 tablet 03/14/18 Azithromycin [Zithromax Tri-Leo (3 DAYS) -] 500 mg PO DAILY #3 tablet 04/07/18 Albuterol 0.083% Nebulizer Malika [Ventolin 0.083% Nebulizer Soln -] 1 neb NEB Q4H #30 vial 10/08/18 predniSONE [Deltasone] 20 mg PO BID #10 tablet 10/08/18 predniSONE [Deltasone -] 40 mg PO DAILY #4 tablet 10/28/18 Azithromycin [Zithromax 250mg Tablets -] 250 mg PO UTDICT #6 tab 01/31/19 Albuterol 0.083% Nebulizer Malika [Ventolin 0.083% Nebulizer Soln -] 1 neb NEB Q4H PRN #30 vial 02/26/19 Prednisone [Prednisone 50 MG TABLETS] 50 mg PO DAILY 4 Days #4 tablet 03/01/19 Anemia: No Asthma: Yes Cancer: No Cardiac Disorders: No CVA: No COPD: No CHF: No DVT: No Dementia: No Diabetes: No GI Disorders: No Disorders: No HTN: No Hypercholesterolemia: Yes Liver Disease: No Psychiatric Problems: Yes (Bipolar, suicidal ideations) Seizures: No Thyroid Disease: No - Surgical History Abdominal Surgery: No Appendectomy: No Cardiac Surgery: No Cholecystectomy: No Lung Surgery: No Neurologic Surgery: No Orthopedic Surgery: No - Immunization History Td Vaccination: Yes TDAP Vaccination: Yes Immunization Up to Date: Yes - Psycho Social/Smoking Cessation Hx Smoking Status: No Smoking History: Never smoked Have you smoked in the past 12 months: No Number of Cigarettes Smoked Daily: 0 Cigars Per Day: 0 Information on smoking cessation initiated: No Hx Alcohol Use: No Drug/Substance Use Hx: No Substance Use Type: None Hx Substance Use Treatment: No Review of Systems - Review of Systems Able to Perform ROS?: Yes Constitutional: No: Chills, Diaphoresis, Fever HEENTM: No: Blurred Vision, Tearing Respiratory: Yes: Cough, Shortness of Breath, Wheezing. No: Stridor, Productive cough Cardiac (ROS): No: Chest Pain, Edema, Irregular Heart Rate, Lightheadedness, Palpitations ABD/GI: No: Diarrhea, Nausea, Vomiting : No: Burning, Dysuria, Discharge Integumentary: No: Flushing, Lesions Neurological: No: Headache, Numbness, Paresthesia Hematologic/Lymphatic: No: Anemia, Blood Clots, Easy Bleeding *Physical Exam - Vital Signs Last Vital Signs Temp Pulse Resp BP Pulse Ox 98.2 F 104 H 20 142/78 96 03/01/19 05:30 03/01/19 05:30 03/01/19 05:30 03/01/19 05:30 03/01/19 05:30 - Physical Exam General Appearance: Yes: Nourished, Appropriately Dressed. No: Apparent Distress HEENT: positive: EOMI, LISA, Normal ENT Inspection, Normal Voice Neck: positive: Trachea midline, Normal Thyroid, Supple. negative: Tender, Rigid Respiratory/Chest: positive: Respiratory Distress (mild). negative: Chest Tender, Lungs Clear (mildly restricted whith minor expiratory wheezes), Normal Breath Sounds, Accessory Muscle Use Cardiovascular: positive: Regular Rhythm, Tachycardia. negative: Regular Rate Gastrointestinal/Abdominal: positive: Normal Bowel Sounds, Flat, Soft. negative : Tender Lymphatic: negative: Adenopathy, Tenderness Musculoskeletal: positive: Normal Inspection. negative: Decreased Range of Motion Extremity: positive: Normal Capillary Refill, Normal Inspection, Normal Range of Motion. negative: Tender Integumentary: positive: Normal Color, Dry, Warm Neurologic: positive: Fully Oriented, Alert, Normal Mood/Affect, Normal Response , Motor Strength 5/5 Medical Decision Making - Medical Decision Making 53 year old female with asthma presenting with mild asthma exacerbation which was nearly completely resolved after duonebs x3 and methylprednisolone 125 IV. Patient asked to be discharged and felt stable to go home which our team agreed with. She was given follow up instructions and return precautions. 03/05/19 11:19 Discharge - Discharge Information Problems reviewed: Yes Clinical Impression/Diagnosis: Asthma exacerbation Qualifiers: Asthma severity: moderate Asthma persistence: unspecified Qualified Code(s): J45.901 - Unspecified asthma with (acute) exacerbation Condition: Stable Disposition: HOME - Admission No - Additional Discharge Information Prescriptions: Prednisone [Prednisone 50 MG TABLETS] 50 mg PO DAILY 4 Days #4 tablet - Follow up/Referral Referrals: Brittney Hinkle [Primary Care Provider] - - Patient Discharge Instructions Patient Printed Discharge Instructions: Asthma -- Adult Additional Instructions: Please use your inhalers and nebulizers as needed. Please use your steroids at home as well. Please return to the ED if you have new or worsening symptoms. - Post Discharge Activity
--- NOTE | 2019-03-01 06:26 | PDOC ---
Attending Attestation - Resident Resident Name: Diane Hunt - ED Attending Attestation I have performed the following: I have examined & evaluated the patient, The case was reviewed & discussed with the resident, I agree w/resident's findings & plan - HPI HPI: 03/01/19 06:24 Pt comes with asthma exacerbation due to the cold weather. - Physicial Exam PE: 03/01/19 06:24 Pthas normal exam Heart S1S2 RRR Lungs + wheeze Abd soft NT ND No flank pain No extremity swelling No pitting edema. - Medical Decision Making 03/01/19 06:25 Pt is feeling better she is walking around the ER and laughing and joking with staff. Pt is afebrile Stable for discharge.
[2019-03-01] MEDS ORDERED: predniSONE 20 MG TABLET (UD) PO SCH (10:00)
== END 2019-03-01 06:24 | disposition home or self-care (01) ==
LOC: JER 05:05
PROC: 3E0F7GC Introduction of Other Therapeutic Substance into Respiratory Tract, Via Natural or Artificial Opening (ICD-10-PCS; principal; 2019-03-01)
DX: J45.901 Unspecified asthma with (acute) exacerbation (principal); F31.9 Bipolar disorder, unspecified; E78.00 Pure hypercholesterolemia, unspecified; Z88.2 Allergy status to sulfonamides; Z88.8 Allergy status to other drugs, medicaments and biological substances; Z91.018 Allergy to other foods
CPT/HCPCS: 99282-25

== ENCOUNTER 2019-05-03 04:14 | Emergency (ER) | payer OTHER ==
[2019-05-03 04:26] VITALS: TEMP 98.2; BMI 41.1
--- NOTE | 2019-05-03 04:35 | PDOC ---
History of Present Illness <WelshBabs - Last Filed: 05/03/19 05:30> - History of Present Illness Initial Comments: 05/03/19 04:58 53 y/o female with a PMHx of Asthma (no hospitalizations, no intubations) and Bipolar Disorder here today w/4 day h/o sore throat and c/o "my asthma" which she describes as shortness of breath and wheezing. Denies any associated chest pain, lightheadedness, palpitations. No fevers/chills. Was evaluated earlier today at [facility] for sore throat and states she was told they would call her on Sunday with results of her throat swab. Reports that she is evaluated often in our ED for her asthma and she doesn't like Prednisone because it makes her aggressive. As per EMR, patient has multiple evaluations in our ED for asthma and shortness of breath w/symptomatic improvement s/p Duo Nebs. <Chichi Devlin - Last Filed: 05/03/19 05:50> - General Chief Complaint: Asthma Stated Complaint: ASTHMA Past History <BlaiseBabs - Last Filed: 05/03/19 05:30> - Past Medical History Anemia: No Asthma: Yes Cancer: No Cardiac Disorders: No CVA: No COPD: No CHF: No DVT: No Dementia: No Diabetes: No GI Disorders: No Disorders: No HTN: No Hypercholesterolemia: Yes Liver Disease: No Psychiatric Problems: Yes (Bipolar, suicidal ideations) Seizures: No Thyroid Disease: No - Surgical History Abdominal Surgery: No Appendectomy: No Cardiac Surgery: No Cholecystectomy: No Lung Surgery: No Neurologic Surgery: No Orthopedic Surgery: No - Immunization History Td Vaccination: Yes TDAP Vaccination: Yes Immunization Up to Date: Yes - Psycho Social/Smoking Cessation Hx Smoking Status: No Smoking History: Never smoked Have you smoked in the past 12 months: No Number of Cigarettes Smoked Daily: 0 Cigars Per Day: 0 Information on smoking cessation initiated: No Hx Alcohol Use: No Drug/Substance Use Hx: No Substance Use Type: None Hx Substance Use Treatment: No <Chichi Devlin - Last Filed: 05/03/19 05:50> - Past Medical History Allergies/Adverse Reactions: Allergies Allergy/AdvReac Type Severity Reaction Status Date / Time surjit Allergy Mild Verified 05/03/19 04:24 prednisone Allergy Verified 05/03/19 04:24 Sulfa (Sulfonamide Allergy Rash Verified 05/03/19 04:24 Antibiotics) [Sulfa(Sulfonamide Antibiotics)] Home Medications: Ambulatory Orders Fluticasone/Salmeterol [Advair 250-50 Diskus] 1 each IH BID 10/20/17 Quetiapine Fumarate [Seroquel] 100 mg PO DAILY #14 tablet 01/30/18 Amoxicillin/Potassium Clav [Augmentin 875-125 Tablet] 1 each PO BID #14 tablet 03/14/18 Azithromycin [Zithromax Tri-Leo (3 DAYS) -] 500 mg PO DAILY #3 tablet 04/07/18 Albuterol 0.083% Nebulizer Malika [Ventolin 0.083% Nebulizer Soln -] 1 neb NEB Q4H #30 vial 10/08/18 predniSONE [Deltasone] 20 mg PO BID #10 tablet 10/08/18 predniSONE [Deltasone -] 40 mg PO DAILY #4 tablet 10/28/18 Azithromycin [Zithromax 250mg Tablets -] 250 mg PO UTDICT #6 tab 01/31/19 Albuterol 0.083% Nebulizer Malika [Ventolin 0.083% Nebulizer Soln -] 1 neb NEB Q4H PRN #30 vial 02/26/19 Prednisone [Prednisone 50 MG TABLETS] 50 mg PO DAILY 4 Days #4 tablet 03/01/19 Review of Systems - Review of Systems Constitutional: No: Chills, Fever HEENTM: Yes: Throat Pain Respiratory: Yes: Shortness of Breath, Wheezing. No: Cough Cardiac (ROS): No: Chest Pain, Lightheadedness, Palpitations, Syncope, Chest Tightness ABD/GI: No: Constipated, Diarrhea, Nausea, Vomiting : No: Burning, Hematuria <Chichi Devlin - Last Filed: 05/03/19 05:50> *Physical Exam - Vital Signs Last Vital Signs Temp Pulse Resp BP Pulse Ox 98.2 F 89 20 111/79 98 05/03/19 04:24 05/03/19 04:24 05/03/19 04:24 05/03/19 04:24 05/03/19 04:24 <Babs Welsh - Last Filed: 05/03/19 05:30> - Vital Signs Last Vital Signs Temp Pulse Resp BP Pulse Ox 98.2 F 89 20 111/79 98 05/03/19 04:24 05/03/19 04:24 05/03/19 04:24 05/03/19 04:24 05/03/19 04:24 - Physical Exam General Appearance: Yes: Nourished, Appropriately Dressed HEENT: positive: Normal Voice, Hearing Grossly Normal. negative: Pharyngeal Erythema, Tonsillar Exudate, Tonsillar Erythema Neck: positive: Trachea midline, Supple Respiratory/Chest: positive: Wheezing Cardiovascular: positive: S1, S2 Gastrointestinal/Abdominal: positive: Normal Bowel Sounds, Soft Extremity: positive: Normal Capillary Refill, Normal Inspection Integumentary: positive: Normal Color, Dry, Warm Neurologic: positive: supervisor transferring and boxing II-XII NML intact, Fully Oriented, Alert <Chichi Devlin - Last Filed: 05/03/19 05:50> ED Treatment Course - Medications Given in the ED: ED Medications Discontinued Medications Generic Name Dose Route Start Last Admin Trade Name Freq PRN Reason Stop Dose Admin Albuterol/Ipratropium 1 amp 05/03/19 04:53 05/03/19 05:04 Duoneb - NEB 05/03/19 04:54 1 amp ONCE ONE Administration <Babs Welsh - Last Filed: 05/03/19 05:30> Medical Decision Making - Medical Decision Making 05/03/19 05:07 53 y/o female with sore throat and wheezing. VS unremarkable Patient well appearing, speaking full sentences w/o difficulty Scattered wheezes on PE Will give Duo Neb x1 No pharyngeal erythema/exudate, no anterior cervical lymphadenopathy low clinical suspicion for strep throat 05/03/19 05:41 Patient reassessed @ bedside Symptomatically improved s/p Duo Neb. D/c home with return precautions and supportive care for presumed non-bacterial pharyngitis. <Chichi Devlin - Last Filed: 05/03/19 05:50> Discharge - Discharge Information Problems reviewed: Yes - Admission No <Babs Welsh - Last Filed: 05/03/19 05:30> <Chichi Devlin - Last Filed: 05/03/19 05:50> - Discharge Information Clinical Impression/Diagnosis: Asthma exacerbation, Viral pharyngitis Condition: Good Disposition: HOME - Follow up/Referral Referrals: Brittney Hinkle [Primary Care Provider] - - Patient Discharge Instructions Patient Printed Discharge Instructions: Sore Throat, Asthma -- Adult, DI for Viral Pharyngitis Additional Instructions: Please follow-up with your primary care doctor as previously scheduled. Return to the Emergency Department for any new/worsening/concerning symptoms. - Post Discharge Activity
[2019-05-03] MEDS ORDERED: ALBUTEROL SO4 2.5/IPRATROPIUM 0.5 INH SOL 3 ML VIAL.NEB. NEB ONE ×2 (04:53→04:57)
--- NOTE | 2019-05-03 05:30 | PDOC ---
Attending Attestation - Resident Resident Name: Chichi Devlin - ED Attending Attestation I have performed the following: I have examined & evaluated the patient, The case was reviewed & discussed with the resident, I agree w/resident's findings & plan - HPI HPI: 05/04/19 04:59 Pt comes with asthma exacerbation - Physicial Exam PE: 05/04/19 04:59 patchy wheeze in lungs. Pt is afebrile appears well ambulating about the ER heart normal lungs CTAb ext no C/C/E abd soft NT ND no flank pain - Medical Decision Making 05/04/19 05:00 Pt will be sent home with asthma meds. Follow with PMD
[2019-05-03 05:47] VITALS: BP 127/86; PULSE 79
== END 2019-05-03 05:45 | disposition home or self-care (01) ==
LOC: JER 04:14
PROC: 3E0F7GC Introduction of Other Therapeutic Substance into Respiratory Tract, Via Natural or Artificial Opening (ICD-10-PCS; principal; 2019-05-03)
DX: J45.901 Unspecified asthma with (acute) exacerbation (principal); J02.9 Acute pharyngitis, unspecified; B97.89 Other viral agents as the cause of diseases classified elsewhere; Z88.2 Allergy status to sulfonamides; Z88.8 Allergy status to other drugs, medicaments and biological substances; Z91.018 Allergy to other foods
CPT/HCPCS: 94640; 99284-25

== ENCOUNTER 2019-05-04 01:51 | Emergency (ER) | payer OTHER ==
[2019-05-04 02:02] VITALS: BP 132/84; PULSE 80; TEMP 97.6; BMI 39.8
--- NOTE | 2019-05-04 02:19 | PDOC ---
Attending Attestation - Resident Resident Name: Kam Torres - ED Attending Attestation I have performed the following: I have examined & evaluated the patient, The case was reviewed & discussed with the resident, I agree w/resident's findings & plan - HPI HPI: 05/04/19 05:42 Pt comes with MSCP; no SOB; ambulating around ED and she feels well. - Physicial Exam PE: 05/04/19 05:43 Agree with resdient exam Pt is A+Ox3 afebrile Heart RRR Lungs CTA b Abd soft NT ND - Medical Decision Making 05/04/19 03:47 stable for d/c home; pt has normal CXR and normal EKG and normal labs and normal exam. 05/04/19 05:44 Home with her mom
--- NOTE | 2019-05-04 02:22 | PDOC ---
History of Present Illness - General Chief Complaint: Asthma Stated Complaint: ASTHMA Time Seen by Provider: 05/04/19 02:07 - History of Present Illness Initial Comments: The pt is a 53F w/ a history of asthma who presents for evaluation of chest pain. It is left-sided, achy, non-radiating, non-exertional, non-positional, and not exacerbated or alleviated by anything she can identify. Denies fevers/ chills, SOB, N/V, abdominal pain, dysuria, diarrhea, or blood in his stool. She has not tried anything for her symptoms. 05/04/19 03:59 Past History - Past Medical History Allergies/Adverse Reactions: Allergies Allergy/AdvReac Type Severity Reaction Status Date / Time surjit Allergy Mild Verified 05/04/19 01:59 prednisone Allergy Verified 05/04/19 01:59 Sulfa (Sulfonamide Allergy Rash Verified 05/04/19 01:59 Antibiotics) [Sulfa(Sulfonamide Antibiotics)] Home Medications: Ambulatory Orders Fluticasone/Salmeterol [Advair 250-50 Diskus] 1 each IH BID 10/20/17 Quetiapine Fumarate [Seroquel] 100 mg PO DAILY #14 tablet 01/30/18 Amoxicillin/Potassium Clav [Augmentin 875-125 Tablet] 1 each PO BID #14 tablet 03/14/18 Azithromycin [Zithromax Tri-Leo (3 DAYS) -] 500 mg PO DAILY #3 tablet 04/07/18 Albuterol 0.083% Nebulizer Malika [Ventolin 0.083% Nebulizer Soln -] 1 neb NEB Q4H #30 vial 10/08/18 predniSONE [Deltasone] 20 mg PO BID #10 tablet 10/08/18 predniSONE [Deltasone -] 40 mg PO DAILY #4 tablet 10/28/18 Azithromycin [Zithromax 250mg Tablets -] 250 mg PO UTDICT #6 tab 01/31/19 Albuterol 0.083% Nebulizer Malika [Ventolin 0.083% Nebulizer Soln -] 1 neb NEB Q4H PRN #30 vial 02/26/19 Prednisone [Prednisone 50 MG TABLETS] 50 mg PO DAILY 4 Days #4 tablet 03/01/19 Anemia: No Asthma: Yes Cancer: No Cardiac Disorders: No CVA: No COPD: No CHF: No DVT: No Dementia: No Diabetes: No GI Disorders: No Disorders: No HTN: No Hypercholesterolemia: Yes Liver Disease: No Psychiatric Problems: Yes (Bipolar, suicidal ideations) Seizures: No Thyroid Disease: No - Surgical History Abdominal Surgery: No Appendectomy: No Cardiac Surgery: No Cholecystectomy: No Lung Surgery: No Neurologic Surgery: No Orthopedic Surgery: No - Immunization History Td Vaccination: Yes TDAP Vaccination: Yes Immunization Up to Date: Yes - Psycho Social/Smoking Cessation Hx Smoking Status: No Smoking History: Never smoked Have you smoked in the past 12 months: No Number of Cigarettes Smoked Daily: 0 Cigars Per Day: 0 Information on smoking cessation initiated: No Hx Alcohol Use: No Drug/Substance Use Hx: No Substance Use Type: None Hx Substance Use Treatment: No Review of Systems - Review of Systems Able to Perform ROS?: Yes Comments:: GENERAL/CONSTITUTIONAL: No fever or chills. No weakness HEAD, EYES, EARS, NOSE AND THROAT: No change in vision. No change in hearing. No sore throat CARDIOVASCULAR: No shortness of breath RESPIRATORY: Denies hemoptysis GASTROINTESTINAL: No nausea, vomiting, diarrhea or constipation GENITOURINARY: No dysuria, frequency, or change in urination MUSCULOSKELETAL: No joint or muscle swelling or pain. No neck or back pain SKIN: No rash NEUROLOGIC: No headache, vertigo, loss of consciousness, or change in strength/ sensation ENDOCRINE: No increased thirst. No abnormal weight change HEMATOLOGIC/LYMPHATIC: No anemia, easy bleeding, or history of blood clots ALLERGIC/IMMUNOLOGIC: No hives or skin allergy 05/04/19 02:21 Is the patient limited [place] proficient: No *Physical Exam - Vital Signs Last Vital Signs Temp Pulse Resp BP Pulse Ox 97.6 F 80 22 H 132/84 96 05/04/19 02:00 05/04/19 02:00 05/04/19 02:00 05/04/19 02:00 05/04/19 02:00 - Physical Exam GENERAL: Awake, alert, and oriented to person/place/time, in no acute distress HEAD: No signs of trauma, normocephalic, atraumatic EYES: PERRLA, EOMI, sclera anicteric, conjunctiva clear ENT: Hearing grossly normal, nares patent, oropharynx clear without exudates. Moist mucosa LUNGS: No distress, speaks in full sentences, clear to auscultation bilaterally HEART: Regular rate and rhythm, normal S1 and S2, no murmurs appreciated, peripheral pulses normal and equal bilaterally ABDOMEN: Soft, nontender, normoactive bowel sounds. No guarding, no rebound EXTREMITIES: Normal inspection, Normal range of motion, no edema. No clubbing or cyanosis NEUROLOGICAL: Cranial nerves II through XII grossly intact. Normal speech, normal gait, no focal sensorimotor deficits SKIN: Warm, Dry 05/04/19 02:22 ED Treatment Course - LABORATORY CBC & Chemistry Diagram: 05/04/19 02:39 05/04/19 02:39 Medical Decision Making - Medical Decision Making The pt is a 53F w/ a history of asthma who presents for evaluation of chest pain. ED Course Labs sent ECG CXR ECG w/ NSR; HR 78; QTc 478; no MADISON; poor baseline Labs unremarkable CXR unremarkable Pt feels improved at this time Trop I neg Plan for D/C w/ PCP f/u Discharge instructions and return precautions given Patient in agreement and verbalized understanding Dispo: Home 05/04/19 04:02 Discharge - Discharge Information Problems reviewed: Yes Clinical Impression/Diagnosis: Chest pain Qualifiers: Chest pain type: unspecified Qualified Code(s): R07.9 - Chest pain, unspecified Condition: Stable Disposition: HOME - Admission No - Follow up/Referral Referrals: Brittney Hinkle [Primary Care Provider] - - Patient Discharge Instructions Patient Printed Discharge Instructions: DI for Chest Pain - Post Discharge Activity
[2019-05-04] MEDS ORDERED: ACETAMINOPHEN 325 MG TABLET (FP) PO ONE (02:52)
[2019-05-04] MEDS ORDERED: LIDOCAINE 5% TOPICAL PATCH TP ONE (02:52)
[2019-05-04] MEDS ORDERED: ACETAMINOPHEN 325 MG TABLET (FP) ONE (02:53)
[2019-05-04] MEDS ORDERED: LIDOCAINE 5% TOPICAL PATCH ONE (02:53)
[2019-05-04 03:01] LABS: BASO % 2.3 % (0-2.0); HEMATOCRIT 36.5 % (32.4-45.2); HEMOGLOBIN 11.9 GM/dL (10.7-15.3); LYMPH % 45.2 % (8-40); MCH 26.4 pg (25.7-33.7); MCHC 32.5 g/dl (32.0-36.0); MEAN CELL VOLUME 81.3 fl (80-96); MONO % 8.5 % (3.8-10.2); PLATELET COUNT 408 K/MM3 (134-434); RBC 4.49 M/mm3 (3.60-5.2); RDW 15.6 % (11.6-15.6)
[2019-05-04 03:35] LABS: ALBUMIN 3.1 g/dl (3.4-5.0); ALK PHOS 106 U/L (45-117); ANION GAP 7 MMOL/L (8-16); BILIRUBIN,TOTAL 0.3 mg/dL (0.2-1); BLOOD UREA NITROGEN 9.4 mg/dL (7-18); CHLORIDE 105 mmol/L (98-107); CO2 25 mmol/L (21-32); CREATININE 0.7 mg/dL (0.55-1.3); GLUCOSE,RANDOM 109 mg/dL (74-106); POTASSIUM 4.2 mmol/L (3.5-5.1); SGOT/AST 19 U/L (15-37); SGPT/ALT 14 U/L (13-61); SODIUM 136 mmol/L (136-145); TOT PROT 7.1 g/dl (6.4-8.2)
[2019-05-04] MEDS ORDERED: LIDOCAINE PATCH REMOVAL MC SCH (22:00)
--- NOTE | 2019-05-05 09:42 | EKG ---
Test Reason : Blood Pressure : / mmHG Vent. Rate : 078 BPM Atrial Rate : 078 BPM P-R Int : 158 ms QRS Dur : 084 ms QT Int : 420 ms P-R-T Axes : 055 -12 030 degrees QTc Int : 478 ms NORMAL SINUS RHYTHM LOW VOLTAGE QRS Poor r transition ABNORMAL ECG WHEN COMPARED WITH ECG OF 01-FEB-2018 20:55, NONSPECIFIC T WAVE ABNORMALITY NOW EVIDENT IN ANTERIOR LEADS Confirmed by Johs Tello ([id number]) on 05/05/2019 9:41:51 AM Referred By: Confirmed By:Josh Tello
== END 2019-05-04 04:08 | disposition home or self-care (01) ==
LOC: JER 01:51
DX: R07.89 Other chest pain (principal); J45.909 Unspecified asthma, uncomplicated; Z88.2 Allergy status to sulfonamides; Z88.8 Allergy status to other drugs, medicaments and biological substances; Z91.018 Allergy to other foods
CPT/HCPCS: 36415; 71046-TC-FY; 80053; 84484; 85025; 93005; 93010; 99285-25

== ENCOUNTER 2019-09-20 22:28 | Emergency (ER) | payer OTHER ==
[2019-09-20 22:37] VITALS: BMI 46.3
[2019-09-20] MEDS ORDERED: ALBUTEROL SO4 2.5/IPRATROPIUM 0.5 INH SOL 3 ML VIAL.NEB. NEB ONE ×2 (22:49→22:51)
[2019-09-20] MEDS ORDERED: DEXAMETHASONE LIQUID 0.5 MG/5 ML PO ONE (22:49)
[2019-09-20] MEDS ORDERED: DEXAMETHASONE SOD PHOSPHATE 10 MG/1 ML VIAL ONE (22:51)
--- NOTE | 2019-09-20 22:59 | PDOC ---
History of Present Illness - General Chief Complaint: Shortness of Breath Stated Complaint: ASTHMA Time Seen by Provider: 09/20/19 22:41 History Source: Patient Exam Limitations: Clinical Condition - History of Present Illness Initial Comments: 09/20/19 22:54 Patient with past medical history of asthma presented with complaint of wheezing and shortness of breath status post eating a pizza which has cheese. Patient reported has been doing well with her asthma and has not needed to use asthma medication since April but gets asthma exacerbation when she is anything with dairy products. Patient reported having a cheese sandwich and pizza after which she started having wheezing and shortness of breath. Patient reports symptoms started this evening and has been persistent. 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 Denies choking sensation, difficulty breathing, fever, chills, chest pain, sweats. Patient talking in full sentences with no distress Is this a multiple visit Asthma Patient?: No Timing/Duration: 4-6 hours Past History - Medical History Allergies/Adverse Reactions: Allergies Allergy/AdvReac Type Severity Reaction Status Date / Time surjit Allergy Mild Verified 05/04/19 01:59 prednisone Allergy Verified 05/04/19 01:59 Sulfa (Sulfonamide Allergy Rash Verified 05/04/19 01:59 Antibiotics) [Sulfa(Sulfonamide Antibiotics)] Home Medications: Ambulatory Orders Fluticasone/Salmeterol [Advair 250-50 Diskus] 1 each IH BID 10/20/17 Quetiapine Fumarate [Seroquel] 100 mg PO DAILY #14 tablet 01/30/18 Amoxicillin/Potassium Clav [Augmentin 875-125 Tablet] 1 each PO BID #14 tablet 03/14/18 Azithromycin [Zithromax Tri-Leo (3 DAYS) -] 500 mg PO DAILY #3 tablet 04/07/18 Albuterol 0.083% Nebulizer Malika [Ventolin 0.083% Nebulizer Soln -] 1 neb NEB Q4H #30 vial 10/08/18 predniSONE [Deltasone] 20 mg PO BID #10 tablet 10/08/18 predniSONE [Deltasone -] 40 mg PO DAILY #4 tablet 08/19/19 Azithromycin [Zithromax 250mg Tablets -] 250 mg PO UTDICT #6 tab 01/31/19 Albuterol 0.083% Nebulizer Malika [Ventolin 0.083% Nebulizer Soln -] 1 neb NEB Q4H PRN #30 vial 02/26/19 Prednisone [Prednisone 50 MG TABLETS] 50 mg PO DAILY 4 Days #4 tablet 03/01/19 Acetaminophen [Tylenol] 650 mg PO QID PRN #30 capsule 06/09/19 predniSONE [Deltasone -] 40 mg PO DAILY #10 tablet 06/09/19 Montelukast Na [Singulair -] 10 mg PO HS #7 tablet 09/20/19 Anemia: No Asthma: Yes Cancer: No Cardiac Disorders: No CVA: No COPD: No CHF: No DVT: No Dementia: No Diabetes: No GI Disorders: No Disorders: No HTN: No Hypercholesterolemia: Yes Liver Disease: No Psychiatric Problems: Yes (Bipolar, suicidal ideations) Seizures: No Thyroid Disease: No - Surgical History Abdominal Surgery: No Appendectomy: No Cardiac Surgery: No Cholecystectomy: No Lung Surgery: No Neurologic Surgery: No Orthopedic Surgery: No - Immunization History Td Vaccination: Yes TDAP Vaccination: Yes Immunization Up to Date: Yes - Psycho-Social/Smoking History Smoking Status: No Smoking History: Never smoked Have you smoked in the past 12 months: No Number of Cigarettes Smoked Daily: 0 Cigars Per Day: 0 - Substance Abuse Hx (Audit-C & DAST Scrn) How often the patient has a drink containing alcohol: Never Score: In Men: 4 or > Positive; In Women: 3 or > Positive: 0 Screen Result (Pos requires Nsg. Audit-10AR): Negative Review of Systems - Review of Systems Able to Perform ROS?: Yes Is the patient limited Venezuelan proficient: No Constitutional: No: Chills, Fever, Malaise HEENTM: No: Symptoms Reported, See HPI, Eye Pain, Blurred Vision, Tearing, Recent change in vision, Double Vision, Cataracts, Ear Pain, Ocular Prothesis, Ear Discharge, Nose Pain, Nose Congestion, Tinnitus, Nose Bleeding, Hearing Loss, Throat Pain, Throat Swelling, Mouth Pain, Dental Problems, Difficulty Swallowing, Mouth Swelling, Other Respiratory: Yes: Symptoms reported, See HPI, Shortness of Breath, Wheezing. No: Cough, Orthopnea, SOB with Exertion, SOB at Rest, Stridor, Hemoptysis Cardiac (ROS): No: Symptoms Reported, See HPI, Chest Pain, Edema, Irregular Heart Rate, Lightheadedness, Palpitations, Syncope, Chest Tightness, Other ABD/GI: No: Symptoms Reported, Nausea, Vomiting Musculoskeletal: No: Symptoms Reported Integumentary: No: Symptoms Reported, Rash Neurological: No: Symptoms reported All Other Systems: Reviewed and Negative *Physical Exam - Vital Signs Last Vital Signs Temp Pulse Resp BP Pulse Ox 98.5 F 75 20 129/105 H 98 09/20/19 22:35 09/20/19 22:35 09/20/19 22:35 09/20/19 22:35 09/20/19 22:35 - Physical Exam 09/20/19 22:58 GENERAL: Well developed, well nourished. Awake and alert. No acute distress. HEENT: Normocephalic, atraumatic. PERRLA, EOMI. No conjunctival pallor. Sclera are non-icteric. Moist mucous membranes. Oropharynx is clear. NECK: Supple. Full ROM. CARDIOVASCULAR: Regular rate and rhythm. No murmurs, rubs, or gallops. PULMONARY: No evidence of respiratory distress. Diffuse expiratory wheeze. No rales or rhonchi. MUSCULOSKELETAL Normal range of motion at all joints. SKIN: Warm and dry. Normal capillary refill. No rashes. No cyanosis NEUROLOGICAL: Alert, awake, appropriate. Gait is normal without ataxia. PSYCHIATRIC: Cooperative. Good eye contact. Appropriate mood General Appearance: Yes: Nourished, Appropriately Dressed. No: Apparent Distress Medical Decision Making - Medical Decision Making 09/20/19 22:57 Patient with past medical history of asthma presented with complaint of wheezing and shortness of breath status post eating a pizza which has cheese. Patient reported has been doing well with her asthma and has not needed to use asthma medication since April but gets asthma exacerbation when she is anything with dairy products. Patient reported having a cheese sandwich and pizza after which she started having wheezing and shortness of breath. Patient reports symptoms started this evening and has been persistent. 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 Denies choking sensation, difficulty breathing, fever, chills, chest pain, sweats. Patient talking in full sentences with no distress Exam significant for diffuse expiratory wheeze with no acute respiratory distress. Patient afebrile. Patient talking in full sentences and making conversation without difficulty. Symptoms likely asthma exacerbation. DuoNeb with albuterol and Atrovent ordered for wheezing. Decadron 10 mg p.o. given for asthma exacerbation. Reassess after neb treatment 09/20/19 23:32 Patient reported complete improvement of wheezing and shortness of breath with neb treatment and requesting to be discharged. Patient reported has mild headache and requests Tylenol before discharge. Patient stable for discharge to continue home nebulizer treatment and Flovent for asthma and will add Singulair to help prevent recurrent asthma exacerbation with follow-up with your PCP Discharge - Discharge Information Problems reviewed: Yes Clinical Impression/Diagnosis: Asthma exacerbation Qualifiers: Asthma severity: mild Asthma persistence: intermittent Qualified Code(s): J45.21 - Mild intermittent asthma with (acute) exacerbation Condition: Stable Disposition: HOME - Admission No - Additional Discharge Information Prescriptions: Montelukast Na [Singulair -] 10 mg PO HS #7 tablet - Follow up/Referral Referrals: Zay Rodriguez MD [Primary Care Provider] - - Patient Discharge Instructions Patient Printed Discharge Instructions: DI for Asthma -- Adult Additional Instructions: Continue using home nebulizer medication as needed for asthma. Come back to the emergency room if worsening shortness of breath despite using your asthma medication otherwise follow-up with your primary care - Post Discharge Activity
[2019-09-20] MEDS ORDERED: ACETAMINOPHEN 325 MG TABLET (FP) PO ONE (23:31)
[2019-09-20] MEDS ORDERED: ACETAMINOPHEN 325 MG TABLET (FP) ONE (23:36)
[2019-09-20 23:59] VITALS: BP 140/78; PULSE 82; TEMP 97.8
== END 2019-09-20 23:45 | disposition home or self-care (01) ==
LOC: JER 22:28
PROC: 3E0F7GC Introduction of Other Therapeutic Substance into Respiratory Tract, Via Natural or Artificial Opening (ICD-10-PCS; principal; 2019-09-20)
DX: J45.21 Mild intermittent asthma with (acute) exacerbation (principal)
CPT/HCPCS: 99283-25

== ENCOUNTER 2019-09-22 01:23 | Emergency (ER) | payer OTHER ==
[2019-09-22 01:57] VITALS: BP 129/86; PULSE 74; TEMP 98.3; BMI 43.0
[2019-09-22] MEDS ORDERED: ACETAMINOPHEN 500 MG TABLET (FP) PO ONE (02:11)
--- NOTE | 2019-09-22 02:12 | PDOC ---
History of Present Illness - General Chief Complaint: Injury Stated Complaint: FALL/ANKLE PAIN Time Seen by Provider: 09/22/19 01:53 History Source: Patient Exam Limitations: No Limitations - History of Present Illness Initial Comments: 09/22/19 02:12 Yanci Mcknight is a 53F with PMH asthma and bipolar depression presenting with mechanical fall. 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 Able to stand and walk at scene without issues. Complaining of L ankle pain with walking as well as back pain and KEARNEY. Not on AC, only meds are amoxicillin for possible strep throat last week as well as albuterol for asthma. Denies N/V/C/D, SOB, urinary sx, SOB, palpitations, chest pain. Denies neck pain, numbness/tingling of hands/feet, dizziness, vision changes. 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 Here in ED for evaluation of her left ankle for fracture and ankle pain. Past History - Medical History Allergies/Adverse Reactions: Allergies Allergy/AdvReac Type Severity Reaction Status Date / Time surjit Allergy Mild Verified 09/22/19 01:57 prednisone Allergy Verified 09/22/19 01:57 Sulfa (Sulfonamide Allergy Rash Verified 09/22/19 01:57 Antibiotics) [Sulfa(Sulfonamide Antibiotics)] Home Medications: Ambulatory Orders Fluticasone/Salmeterol [Advair 250-50 Diskus] 1 each IH BID 10/20/17 Quetiapine Fumarate [Seroquel] 100 mg PO DAILY #14 tablet 01/30/18 Amoxicillin/Potassium Clav [Augmentin 875-125 Tablet] 1 each PO BID #14 tablet 03/14/18 Azithromycin [Zithromax Tri-Leo (3 DAYS) -] 500 mg PO DAILY #3 tablet 04/07/18 Albuterol 0.083% Nebulizer Malika [Ventolin 0.083% Nebulizer Soln -] 1 neb NEB Q4H #30 vial 10/08/18 predniSONE [Deltasone] 20 mg PO BID #10 tablet 10/08/18 predniSONE [Deltasone -] 40 mg PO DAILY #4 tablet 10/28/18 Azithromycin [Zithromax 250mg Tablets -] 250 mg PO UTDICT #6 tab 11/22/19 Albuterol 0.083% Nebulizer Malika [Ventolin 0.083% Nebulizer Soln -] 1 neb NEB Q4H PRN #30 vial 02/26/19 Prednisone [Prednisone 50 MG TABLETS] 50 mg PO DAILY 4 Days #4 tablet 03/01/19 Acetaminophen [Tylenol] 650 mg PO QID PRN #30 capsule 06/09/19 predniSONE [Deltasone -] 40 mg PO DAILY #10 tablet 06/09/19 Montelukast Na [Singulair -] 10 mg PO HS #7 tablet 09/20/19 Anemia: No Asthma: Yes Cancer: No Cardiac Disorders: No CVA: No COPD: No CHF: No DVT: No Dementia: No Diabetes: No GI Disorders: No Disorders: No HTN: No Hypercholesterolemia: Yes Liver Disease: No Psychiatric Problems: Yes (Bipolar, suicidal ideations) Seizures: No Thyroid Disease: No - Surgical History Abdominal Surgery: No Appendectomy: No Cardiac Surgery: No Cholecystectomy: No Lung Surgery: No Neurologic Surgery: No Orthopedic Surgery: No - Immunization History Td Vaccination: Yes TDAP Vaccination: Yes Immunization Up to Date: Yes - Psycho-Social/Smoking History Smoking Status: No Smoking History: Never smoked Have you smoked in the past 12 months: No Number of Cigarettes Smoked Daily: 0 Cigars Per Day: 0 Information on smoking cessation initiated: No - Substance Abuse Hx (Audit-C & DAST Scrn) How often the patient has a drink containing alcohol: Never Score: In Men: 4 or > Positive; In Women: 3 or > Positive: 0 Screen Result (Pos requires Nsg. Audit-10AR): Negative In the last yr the pt used illegal drug/Rx for NonMed reason: No Score: Yes response is considered Positive: 0 Screen Result (Positive result requires Nsg. DAST-10): Negative Review of Systems - Review of Systems Able to Perform ROS?: Yes Constitutional: No: Chills, Fever, Weakness HEENTM: No: Eye Pain, Blurred Vision, Tearing, Double Vision Respiratory: No: Cough, Shortness of Breath, SOB with Exertion, SOB at Rest, Stridor, Wheezing, Productive cough Cardiac (ROS): No: Chest Pain, Irregular Heart Rate, Palpitations, Syncope ABD/GI: No: Constipated, Diarrhea, Nausea, Poor Appetite, Poor Fluid Intake, Vomiting : No: Symptoms Reported Musculoskeletal: Yes: Back Pain. No: Neck Pain Integumentary: No: Symptoms Reported Neurological: Yes: Headache. No: Numbness, Paresthesia, Weakness, Ataxia, Dizziness Endocrine: No: Symptoms Reported Hematologic/Lymphatic: No: Symptoms Reported All Other Systems: Reviewed and Negative *Physical Exam - Vital Signs Last Vital Signs Temp Pulse Resp BP Pulse Ox 98.3 F 74 20 129/86 97 09/22/19 01:30 09/22/19 01:30 09/22/19 01:30 09/22/19 01:30 09/22/19 01:30 - Physical Exam General Appearance: Yes: Nourished, Appropriately Dressed, Obese, Other (alert, excited, pressured speech and flight of ideas but normal thought content). No: Apparent Distress HEENT: positive: EOMI, LISA, Normal Voice, Symmetrical, Pharynx Normal, Hearing Grossly Normal. negative: Scleral Icterus (R), Scleral Icterus (L), Muffled/Hoarse voice, Pharyngeal Erythema, Tonsillar Exudate, Tonsillar Erythema Neck: positive: Normal Thyroid, Supple. negative: Tender, Rigid, Decreased range of motion, Lymphadenopathy (R), Lymphadenopathy (L), Rigidity, Tender lateral, Tender midline Respiratory/Chest: positive: Lungs Clear, Normal Breath Sounds. negative: Chest Tender, Respiratory Distress, Accessory Muscle Use, Labored Respiration, Crackles, Rales, Rhonchi, Stridor Cardiovascular: positive: Regular Rhythm, Regular Rate Musculoskeletal: positive: Normal Inspection. negative: CVA Tenderness, CVA Tenderness (R), CVA Tenderness (L), Decreased Range of Motion, Vertebral Tenderness (no midline spinal tenderness) Extremity: positive: Normal Capillary Refill, Normal Inspection, Tender (medial malleolus tenderness to L ankle), Pelvis Stable, Swelling. 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 negative: Facial Droop, Numbness, Sensory Deficit, Confused, Disoriented ED Treatment Course - RADIOLOGY Radiology Studies Ordered: Category Date Time Status ANKLE & FOOT-LEFT* [RAD] Stat Radiology 09/22/19 01:47 Ordered CHEST PA & LAT [RAD] Stat Radiology 09/22/19 02:03 Ordered LEG TIB/FIB-LEFT [RAD] Stat Radiology 09/22/19 01:47 Ordered SPINE-LUMBAR SACRAL [RAD] Stat Radiology 09/22/19 02:03 Ordered Medical Decision Making - Medical Decision Making 09/22/19 02:44 Patient presents with fall from 7 steps with head injury and KEARNEY with L ankle pain. No concerning neuro deficits, gait normal, but has L malleolar tenderness. Getting CT head/c-spine and XR chest/lumbar/L ankle for trauma evaluation. Giving Tylenol for pain. If no pathology noted, likely stable for d/c home with PMD f/u. Here yesterday for asthma, no wheezing. Pressured speech but no abnormal thought content or harmful behaviors. 09/22/19 03:36 XR ankle/tibfib no acute ankle fracture CXR no acute pathology XR lumbar no fracture noted CT head/c-spine no pathology noted Patient able to ambulate and has no fractures or ICH. Stable for discharge home with ankle sprain instructions and rest. 09/22/19 05:13 Patient left ED without signing paperwork. Discharge - Discharge Information Problems reviewed: Yes Clinical Impression/Diagnosis: Fall (on) (from) other stairs and steps, initial encounter Acute ankle pain Qualifiers: Laterality: left Qualified Code(s): M25.572 - Pain in left ankle and joints of left foot Condition: Stable Disposition: HOME - Follow up/Referral Referrals: Zay Rodriguez MD [Primary Care Provider] - Andrew Valladares MD [Staff Physician] - - Patient Discharge Instructions Patient Printed Discharge Instructions: DI for Ankle Sprain, How To Perform RICE (Rest, Ice, Compress, Elevate) Additional Instructions: Today you were evaluated for ankle and head pain after a fall. Your CT scan and x-rays do not show any problems. Your ankle is sprained but is not broken, and you can let it heal with ice and ibuprofen as needed for the next week. If you have worsening pain, please see an orthopedic surgeon for further evaluation. However, if you have nausea, vomiting, vision changes, numbness/tingling, or become unable to walk, please return to the emergency room. - Post Discharge Activity
[2019-09-22] MEDS ORDERED: ACETAMINOPHEN 325 MG TABLET (FP) ONE (02:31)
--- NOTE | 2019-09-22 02:37 | PDOC ---
Attending Attestation - Resident Resident Name: Lino Ramos - ED Attending Attestation I have performed the following: I have examined & evaluated the patient, The case was reviewed & discussed with the resident, I agree w/resident's findings & plan - HPI HPI: 09/22/19 03:33 Pt slipped and fell down 7 steps. Pt injured her ankle and foot and has back pain. She is not complaining of head and neck pain, but she did strike head and neck. - Physicial Exam PE: 09/22/19 03:33 Normal exam Agree with resident exam - Medical Decision Making 09/22/19 03:30 Patient Name: LEO TRUONG THIS IS A PRELIMINARY REPORT FROM [employer] [employer] Exam: CT of the cervical spine without contrast Technique: Thin contiguous axial images through the cervical vertebra were obtained without use of contrast. Coronal and sagittal reconstructed images were generated. Number of images:[id number] Indication: trauma Date of service: 2019-09-22 02:51:23 Comparison:None Impression: 1. There is no definitive evidence of acute compression fracture or subluxation seen. 2. 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 multi-factorial spondylosis 09/22/19 03:34 XRAYS are all WNL; CT head and neck normal Pt will go home with analgesia Discharge - Discharge Information Problems reviewed: Yes Clinical Impression/Diagnosis: Fall (on) (from) other stairs and steps, initial encounter Acute ankle pain Qualifiers: Laterality: left Qualified Code(s): M25.572 - Pain in left ankle and joints of left foot Condition: Stable Disposition: HOME - Follow up/Referral Referrals: Andrew Valladares MD [Staff Physician] - Zay Rodriguez MD [Primary Care Provider] - - Patient Discharge Instructions Patient Printed Discharge Instructions: DI for Ankle Sprain, How To Perform RICE (Rest, Ice, Compress, Elevate) Additional Instructions: Today you were evaluated for ankle and head pain after a fall. Your CT scan and x-rays do not show any problems. Your ankle is sprained but is not broken, and you can let it heal with ice and ibuprofen as needed for the next week. If you have worsening pain, please see an orthopedic surgeon for further evaluation. However, if you have nausea, vomiting, vision changes, numbness/tingling, or become unable to walk, please return to the emergency room. - Post Discharge Activity
== END 2019-09-22 03:46 | disposition home or self-care (01) ==
LOC: JER 01:23
DX: M25.572 Pain in left ankle and joints of left foot (principal)
CPT/HCPCS: 70450-TC; 71046-TC-FY; 72100-TC-FY; 72125-TC; 73590-TC-LT-FY; 73610-TC-LT-FY; 73630-TC-LT; 99284-25

== ENCOUNTER 2020-03-03 01:21 | Emergency (ER) | payer OTHER ==
[2020-03-03 01:42] VITALS: BP 106/84; PULSE 89; TEMP 98.3; BMI 46.7
[2020-03-03] MEDS ORDERED: ACETAMINOPHEN 500 MG TABLET (FP) PO ONE (02:15)
[2020-03-03] MEDS ORDERED: ACETAMINOPHEN 325 MG TABLET (FP) ONE (02:43)
== END 2020-03-03 04:04 | disposition home or self-care (01) ==
LOC: JER 01:21
DX: J45.901 Unspecified asthma with (acute) exacerbation (principal)
CPT/HCPCS: 99283-25

== ENCOUNTER 2020-06-11 00:57 | Emergency (ER) | payer OTHER ==
[2020-06-11 01:09] VITALS: BP 143/85; PULSE 70; TEMP 98.4; BMI 42.8
== END 2020-06-11 02:17 | disposition home or self-care (01) ==
LOC: JER 00:57
DX: F41.0 Panic disorder [episodic paroxysmal anxiety] (principal)
CPT/HCPCS: 99283-25; 99285-25

== ENCOUNTER 2021-01-10 20:08 | Emergency (ER) | payer OTHER ==
[2021-01-10 20:17] VITALS: TEMP 98.6; BMI 41.1
[2021-01-10] MEDS ORDERED: methylPREDNISolone NA SUCC 125 MG/2 ML VIAL IVPB ONE (21:06)
[2021-01-10] MEDS ORDERED: ALBUTEROL SO4 2.5/IPRATROPIUM 0.5 INH SOL 3 ML VIAL.NEB. NEB ONE (21:23)
[2021-01-10] MEDS ORDERED: methylPREDNISolone NA SUCC 125 MG/2 ML VIAL ONE (21:24)
[2021-01-10] MEDS: ALBUTEROL SO4 2.5/IPRATROPIUM 0.5 INH SOL 3 ML VIAL.NEB. NEB SCH ×3 (21:41→22:29)
[2021-01-10] MEDS ORDERED: MAGNESIUM SULF 50% (8.12 MEQ/2 ML-1 GM VIAL) IVPB ONE (21:48)
[2021-01-10 21:55] LABS: EOS % 2.3 % (0-4.5); HEMATOCRIT 36.1 % (32.4-45.2); HEMOGLOBIN 12.1 GM/dL (10.7-15.3); LYMPH % 21.1 % (8-40); MCH 27.2 pg (25.7-33.7); MCHC 33.4 g/dl (32.0-36.0); MEAN CELL VOLUME 81.6 fl (80-96); MEAN PLT VOLUME 7.4 fl (7.5-11.1); MONO % 2.1 % (3.8-10.2); NEUT % 73.5 % (42.8-82.8); PLATELET COUNT 504 10^3/uL (134-434); RBC 4.43 M/mm3 (3.60-5.2); RDW 15.6 % (11.6-15.6); WHITE BLOOD COUNT 9.2 K/mm3 (4.0-10.0)
[2021-01-10] MEDS ORDERED: MAGNESIUM SULFATE IN WATER 2 GM/50 ML IVPB IVPB ONE (22:25)
[2021-01-10 22:36] LABS: ALBUMIN 2.7 g/dl (3.4-5.0); BLOOD UREA NITROGEN 8.7 mg/dL (7-18); CALCIUM 8.9 mg/dL (8.5-10.1)
[2021-01-10 22:40] LABS: CREATININE 0.6 mg/dL (0.55-1.3)
[2021-01-10 22:41] LABS: BILIRUBIN,TOTAL 0.2 mg/dL (0.2-1); TOT PROT 7.5 g/dl (6.4-8.2)
[2021-01-10 23:33] VITALS: BP 164/93; PULSE 79
== END 2021-01-10 23:48 | disposition home or self-care (01) ==
LOC: JER 20:08 → JERFT 20:08 → JER 23:48
PROC: 3E0F7GC Introduction of Other Therapeutic Substance into Respiratory Tract, Via Natural or Artificial Opening (ICD-10-PCS; principal; 2021-01-10)
PROC: 3E033GC Introduction of Other Therapeutic Substance into Peripheral Vein, Percutaneous Approach (ICD-10-PCS; 2021-01-10)
PROC: 3E033GC Introduction of Other Therapeutic Substance into Peripheral Vein, Percutaneous Approach (ICD-10-PCS; 2021-01-10)
DX: J45.41 Moderate persistent asthma with (acute) exacerbation (principal)
CPT/HCPCS: 36415; 71046-TC-FY; 80053; 82550; 82553; 84484; 85025; 93005; 93010; 99285-25

== ENCOUNTER 2021-04-02 05:49 | Emergency (ER) | payer OTHER ==
[2021-04-02] MEDS ORDERED: ALBUTEROL SO4 2.5/IPRATROPIUM 0.5 INH SOL 3 ML VIAL.NEB. NEB ONE ×2 (06:09→06:10)
[2021-04-02 06:10] VITALS: BP 162/95; PULSE 76; TEMP 98.5; BMI 45.7
== END 2021-04-02 07:30 | disposition left against medical advice (07) ==
LOC: JER 05:49
PROC: 3E0F7GC Introduction of Other Therapeutic Substance into Respiratory Tract, Via Natural or Artificial Opening (ICD-10-PCS; principal; 2021-04-02)
DX: J45.909 Unspecified asthma, uncomplicated (principal)
CPT/HCPCS: 99283-25

== ENCOUNTER 2021-04-12 04:36 | Emergency (ER) | payer OTHER ==
[2021-04-12 04:43] VITALS: BP 130/86; PULSE 80; TEMP 98.2; BMI 42.9
[2021-04-12] MEDS ORDERED: ALBUTEROL SO4 2.5/IPRATROPIUM 0.5 INH SOL 3 ML VIAL.NEB. NEB ONE ×3 (05:03→05:12)
[2021-04-12] MEDS ORDERED: ACETAMINOPHEN 500 MG TABLET (FP) PO ONE (05:03)
[2021-04-12] MEDS ORDERED: DEXAMETHASONE SOD PHOSPHATE 10 MG/1 ML VIAL IM ONE (05:03)
[2021-04-12] MEDS ORDERED: DEXAMETHASONE SOD PHOSPHATE 10 MG/1 ML VIAL ONE (05:12)
[2021-04-12] MEDS ORDERED: ACETAMINOPHEN 500 MG TABLET (FP) ONE (05:21)
== END 2021-04-12 06:31 | disposition home or self-care (01) ==
LOC: JER 04:36
PROC: 3E0F7GC Introduction of Other Therapeutic Substance into Respiratory Tract, Via Natural or Artificial Opening (ICD-10-PCS; principal; 2021-04-12)
PROC: 3E023GC Introduction of Other Therapeutic Substance into Muscle, Percutaneous Approach (ICD-10-PCS; 2021-04-12)
DX: J45.901 Unspecified asthma with (acute) exacerbation (principal); R19.7 Diarrhea, unspecified; J06.9 Acute upper respiratory infection, unspecified
CPT/HCPCS: 94640; 96372; 99284-25; C9803; J1100; U0003; U0005

== ENCOUNTER 2021-08-21 18:40 | Emergency (ER) | payer OTHER ==
[2021-08-21 19:16] VITALS: BP 129/73; PULSE 65; TEMP 98.5; BMI 41.5
[2021-08-21] MEDS ORDERED: IBUPROFEN 600 MG TABLET (FP) PO ONE (19:43)
== END 2021-08-21 21:21 | disposition home or self-care (01) ==
LOC: JER 18:40
DX: R07.0 Pain in throat (principal)
CPT/HCPCS: 87651; 99283-25

== ENCOUNTER 2021-09-14 12:14 | Emergency (ER) | payer OTHER ==
[2021-09-14 12:45] VITALS: BP 130/66; PULSE 96; TEMP 97.9; BMI 44.2
== END 2021-09-14 15:00 | disposition home or self-care (01) ==
LOC: JER 12:14
DX: U07.1 COVID-19 (principal); J02.8 Acute pharyngitis due to other specified organisms; R09.82 Postnasal drip
CPT/HCPCS: 87070; 87077; 99283-25; C9803-CS; U0003; U0005

== ENCOUNTER 2022-05-28 04:45 | Emergency (ER) | payer OTHER ==
[2022-05-28 04:58] VITALS: BP 135/77; PULSE 56; RESP 20; TEMP 97.8; BMI 45.7
== END 2022-05-28 07:00 | disposition left against medical advice (07) ==
LOC: JER 04:45
DX: R51.9 Headache, unspecified (principal); M54.9 Dorsalgia, unspecified; W19.XXXA Unspecified fall, initial encounter; Y92.039 Unspecified place in apartment as the place of occurrence of the external cause
CPT/HCPCS: 99281-25

== ENCOUNTER 2022-07-31 07:00 | Emergency (ER) | payer OTHER ==
[2022-07-31 07:17] VITALS: TEMP 98.4; BMI 42.9
[2022-07-31] MEDS ORDERED: diphenhydrAMINE HCL 25 MG CAPSULE (FP) PO ONE ×2 (07:54→08:14)
[2022-07-31] MEDS ORDERED: ALBUTEROL SO4 2.5/IPRATROPIUM 0.5 INH SOL 3 ML VIAL.NEB. NEB ONE ×2 (07:55→08:03)
[2022-07-31] MEDS ORDERED: DEXAMETHASONE SOD PHOSPHATE 10 MG/1 ML VIAL IM ONE (07:58)
[2022-07-31] MEDS ORDERED: DEXAMETHASONE SOD PHOSPHATE 10 MG/1 ML VIAL ONE (08:14)
[2022-07-31 08:47] VITALS: BP 103/84; PULSE 77; RESP 23
== END 2022-07-31 09:00 | disposition home or self-care (01) ==
LOC: JER 07:00
PROC: 3E0F7GC Introduction of Other Therapeutic Substance into Respiratory Tract, Via Natural or Artificial Opening (ICD-10-PCS; principal; 2022-07-31)
DX: J45.998 Other asthma (principal)
CPT/HCPCS: 99283-25

== ENCOUNTER 2022-10-09 03:39 | Emergency (ER) | payer OTHER ==
[2022-10-09 03:51] VITALS: BP 112/79; PULSE 81; RESP 16; TEMP 97.8; BMI 42.9
== END 2022-10-09 04:51 | disposition home or self-care (01) ==
LOC: JER 03:39
DX: J45.909 Unspecified asthma, uncomplicated (principal)
CPT/HCPCS: 99283-25

== ENCOUNTER 2023-11-14 05:48 | Emergency (ER) | payer OTHER ==
[2023-11-14 05:55] VITALS: BP 107/82; PULSE 67; RESP 18; TEMP 97.9; BMI 27.1
[2023-11-14] MEDS ORDERED: ACETAMINOPHEN 325 MG TABLET (FP) ONE (06:19)
[2023-11-14] MEDS: ACETAMINOPHEN 325 MG TABLET (FP) PO ONE (06:25)
== END 2023-11-14 06:41 | disposition home or self-care (01) ==
LOC: JER 05:48
DX: S09.90XA Unspecified injury of head, initial encounter (principal); M79.10 Myalgia, unspecified site; W01.0XXA Fall on same level from slipping, tripping and stumbling without subsequent striking against object, initial encounter
CPT/HCPCS: 99283-25

== ENCOUNTER 2023-11-20 22:59 | Emergency (ER) | payer OTHER ==
[2023-11-20 23:10] VITALS: BP 137/93; PULSE 68; RESP 18; TEMP 98; BMI 29.2
[2023-11-20] MEDS ORDERED: methylPREDNISolone NA SUCC 125 MG/2 ML VIAL ONE (23:52)
[2023-11-20] MEDS ORDERED: MAGNESIUM SULFATE IN WATER 2 GM/50 ML IVPB IVPB ONE (23:52)
[2023-11-21] MEDS: methylPREDNISolone NA SUCC 125 MG/2 ML VIAL IVPB ONE (00:34)
[2023-11-21] MEDS: ALBUTEROL SO4 2.5/IPRATROPIUM 0.5 INH SOL 3 ML VIAL.NEB. NEB SCH (00:34)
[2023-11-21] MEDS: MAGNESIUM SULFATE IN WATER 2 GM/50 ML IVPB IVPB ONE (00:34)
[2023-11-21 00:45] LABS: BASO % 1.2 % (0-2.0); EOS % 2.1 % (0-4.5); HEMATOCRIT 35.3 % (32.4-45.2); HEMOGLOBIN 11.3 GM/dL (10.7-15.3); LYMPH % 50.3 % (8-40); MCH 27.4 pg (25.7-33.7); MCHC 32.2 g/dl (32.0-36.0); MEAN CELL VOLUME 85.1 fl (80-96); MEAN PLT VOLUME 7.6 fl (7.5-11.1); MONO % 8.4 % (3.8-10.2); PLATELET COUNT 426 10^3/uL (134-434); RBC 4.15 M/mm3 (3.60-5.2); RDW 17.4 % (11.6-15.6); WHITE BLOOD COUNT 8.1 K/mm3 (4.0-10.0)
[2023-11-21 00:46] LABS: VENOUS BASE EXCESS 0.7 mmol/L (-2-2); VENOUS O2 SATURATION 70.8 % (70-80); VENOUS PCO2 54.3 mmHg (38-52); VENOUS PH 7.324 (7.310-7.410)
[2023-11-21 01:01] LABS: INR 0.88 (0.83-1.09); PROTHROMBIN TIME (PATIENT) 10.2 SEC (9.7-13.0)
[2023-11-21 01:03] LABS: POTASSIUM 4.6 mmol/L (3.5-5.1)
[2023-11-21 01:04] LABS: ACTIVATED PTT 27.4 SECONDS (25.2-36.5)
[2023-11-21 01:05] LABS: ALBUMIN 2.8 g/dl (3.4-5.0); CALCIUM 8.9 mg/dL (8.5-10.1)
[2023-11-21 01:09] LABS: BILIRUBIN,TOTAL 0.4 mg/dL (0.2-1); CREATININE 0.5 mg/dL (0.55-1.3); TOT PROT 6.9 g/dl (6.4-8.2)
== END 2023-11-21 01:02 | disposition left against medical advice (07) ==
LOC: JER 22:59
PROC: 3E033GC Introduction of Other Therapeutic Substance into Peripheral Vein, Percutaneous Approach (ICD-10-PCS; principal; 2023-11-20)
PROC: 3E033GC Introduction of Other Therapeutic Substance into Peripheral Vein, Percutaneous Approach (ICD-10-PCS; 2023-11-20)
PROC: 3E0F7GC Introduction of Other Therapeutic Substance into Respiratory Tract, Via Natural or Artificial Opening (ICD-10-PCS; 2023-11-20)
DX: R06.02 Shortness of breath (principal); J45.909 Unspecified asthma, uncomplicated
CPT/HCPCS: 36415; 80053; 82803; 84484; 85025; 85610; 85730; 86850; 86900; 86901; 93005; 93010; 94640; 96365; 96375; 99284-25

== ENCOUNTER 2024-09-12 09:53 | Emergency (ER) | payer OTHER ==
[2024-09-12 10:01] VITALS: BP 114/66; PULSE 98; RESP 20; TEMP 97.9; BMI 43.9
[2024-09-12] MEDS ORDERED: ALBUTEROL SO4 2.5/IPRATROPIUM 0.5 INH SOL 3 ML VIAL.NEB. NEB ONE (10:37)
[2024-09-12] MEDS: ALBUTEROL SO4 2.5/IPRATROPIUM 0.5 INH SOL 3 ML VIAL.NEB. NEB ONE (11:03)
== END 2024-09-12 11:08 | disposition home or self-care (01) ==
LOC: JER 09:53
DX: F31.12 Bipolar disorder, current episode manic without psychotic features, moderate (principal); J45.901 Unspecified asthma with (acute) exacerbation; R06.02 Shortness of breath; R07.89 Other chest pain
CPT/HCPCS: 99283-25